=== PATIENT | male | born 1945 | race Caucasian/White ===

== ENCOUNTER → 2019-12-14 13:42 | Outpatient (BNVA) | payer MEDICARE, OTHER, SELFPAY | PROVIDERS: Family Provider Family Medicine; PCP Family Medicine; Visit Provider Internal Medicine | DX: Z11.59 Encounter for screening for other viral diseases (principal) | CPT/HCPCS: 87635 ==

== ENCOUNTER → 2020-02-02 09:52 | Outpatient (BNVA) | payer MEDICARE, OTHER, SELFPAY | PROVIDERS: Family Provider Family Medicine; PCP Family Medicine; Visit Provider Radiology Diagnostic Radiology | DX: Z20.828 Contact with and (suspected) exposure to other viral communicable diseases (principal); Z01.812 Encounter for preprocedural laboratory examination | CPT/HCPCS: 87635 ==

== ENCOUNTER → 2020-05-10 09:24 | Outpatient (BNVA) | payer MEDICARE, OTHER, SELFPAY | PROVIDERS: Family Provider Family Medicine; PCP Family Medicine; Visit Provider Radiology Diagnostic Radiology | DX: Z01.818 Encounter for other preprocedural examination (principal); Z20.822 Contact with and (suspected) exposure to COVID-19 | CPT/HCPCS: 87635 ==

== ENCOUNTER → 2020-11-12 08:55 | Outpatient (BNVA) | payer MEDICARE, OTHER, SELFPAY | PROVIDERS: Family Provider Family Medicine; PCP Family Medicine; Visit Provider Radiology Diagnostic Radiology | DX: Z20.822 Contact with and (suspected) exposure to COVID-19 (principal) | CPT/HCPCS: 87635 ==

== ENCOUNTER → 2021-02-07 09:42 | Outpatient (BNVA) | payer MEDICARE, OTHER, SELFPAY | PROVIDERS: Family Provider Family Medicine; PCP Family Medicine; Visit Provider Radiology Diagnostic Radiology | DX: Z01.812 Encounter for preprocedural laboratory examination (principal); Z20.822 Contact with and (suspected) exposure to COVID-19 | CPT/HCPCS: 87635 ==

== ENCOUNTER → 2021-05-12 11:49 | Outpatient (BNVA) | payer MEDICARE, OTHER, SELFPAY | PROVIDERS: Family Provider Family Medicine; PCP Family Medicine; Visit Provider Radiology Diagnostic Radiology | DX: Z11.52 Encounter for screening for COVID-19 (principal) | CPT/HCPCS: 87635 ==

== ENCOUNTER → 2021-09-05 11:55 | Outpatient (BNVA) | payer MEDICARE, OTHER, SELFPAY | PROVIDERS: Family Provider Family Medicine; PCP Family Medicine; Referring Provider Family Medicine; Visit Provider Specialist | DX: I69.354 Hemiplegia and hemiparesis following cerebral infarction affecting left non-dominant side (principal); R20.8 Other disturbances of skin sensation; I69.398 Other sequelae of cerebral infarction; G89.0 Central pain syndrome; G25.81 Restless legs syndrome | CPT/HCPCS: 99205; 99214 ==

== ENCOUNTER → 2021-09-25 12:51 | Outpatient (BNVA) | payer MEDICARE, OTHER, SELFPAY | PROVIDERS: Family Provider Family Medicine; PCP Family Medicine; Visit Provider Specialist | DX: I69.354 Hemiplegia and hemiparesis following cerebral infarction affecting left non-dominant side (principal); G50.0 Trigeminal neuralgia; G89.0 Central pain syndrome | CPT/HCPCS: 64612; 64616; 64644; J0585 ==

== ENCOUNTER 2021-11-25 00:34 | Emergency (ER) | payer MEDICARE, OTHER, SELFPAY ==
[2021-11-25 00:40] VITALS: BP 150/90; PULSE 98; PULSE 99; RESP 18; TEMP 36.7; O2SAT 94; BMI 26.6
[2021-11-25 00:44] VITALS: O2SAT 94
--- NOTE | 2021-11-25 00:44 | CTR_ITS ---
PROCEDURE INFORMATION: Exam: CT Abdomen And Pelvis Without Contrast Exam date and time: 11/25/2021 1:21 AM Age: 76 years old Clinical indication: Abdominal pain; Generalized; Prior surgery; Surgery type: Nephrostomy, ostomy, appendectomy; Additional info: Abd pain TECHNIQUE: Imaging protocol: Computed tomography of the abdomen and pelvis without contrast. Radiation optimization: All CT scans at this facility use at least one of these dose optimization techniques: automated exposure control; mA and/or kV adjustment per patient size (includes targeted exams where dose is matched to clinical indication); or iterative reconstruction. COMPARISON: CT chest abd pel w con* 10/06/2017 12:33 PM RADIATION DOSE METRICS: Total DLP (mGy-cm): 750.64 FINDINGS: Tubes, catheters and devices: Interval placement of right nephrostomy tube. Left ileo ureterostomy stent with pigtail catheter in the left renal pelvis. Lungs: Mild right basilar atelectasis and/or infiltrate and/or scarring. Liver: Normal. No mass. Gallbladder and bile ducts: Continued multiple gallstones within the gallbladder. Pancreas: Normal. No ductal dilation. Spleen: Normal. No splenomegaly. Adrenal glands: Normal. No mass. Kidneys and ureters: Interval right anterior abdominal wall urostomy/ileal conduit. Stomach and bowel: Dilated loops of small bowel up to 3.7 cm without obvious transition point suggesting enteritis versus ileus versus occult small-bowel obstruction. Appendix: No evidence of appendicitis. Intraperitoneal space: Unremarkable. No free air. No significant fluid collection. Vasculature: Calcification of the abdominal aorta and/or iliac arteries consistent with atherosclerotic vessel disease. Lymph nodes: Unremarkable. No enlarged lymph nodes. Urinary bladder: Absent urinary bladder consistent with cystectomy. Reproductive: Surgical clips in the pelvis with absent prostate most consistent with radical prostatectomy. Bones/joints: Stable fusion of L2-L3 vertebral bodies. Moderate to severe multilevel spine degenerative changes including degenerative disc disease, spondylosis and facet degenerative changes. Soft tissues: Unremarkable. CT/CT abdomen pelvis wo con [id number] IMPRESSION: 1. Continued multiple gallstones within the gallbladder. 2. Interval placement of right nephrostomy tube. 3. Absent urinary bladder consistent with cystectomy. 4. Surgical clips in the pelvis with absent prostate most consistent with radical prostatectomy. 5. Interval right anterior abdominal wall urostomy/ileal conduit. 6. Left ileo ureterostomy stent with pigtail catheter in the left renal pelvis. 7. Dilated loops of small bowel up to 3.7 cm without obvious transition point suggesting enteritis versus ileus versus occult small-bowel obstruction.
[2021-11-25] MEDS: ondansetron 2 mg/ML SDV 2 mL 4 MG IVP (00:55)
[2021-11-25 01:02] LABS: Basophils % 0.3 %; Eosinophils # 0.3 10^3/uL (0.0-0.8); Eosinophils % 2.9 %; Hematocrit 51.4 % (42.0-52.0); Hemoglobin 16.9 g/dL (11.7-16.6); Lymphocytes # 1.3 10^3/uL (0.8-4.8); Lymphocytes % 14.5 %; Mean Corpuscular HGB Conc 32.9 g/dL (30.0-36.0); Mean Corpuscular Hemoglobin 32.7 pg (28.0-34.0); Mean Corpuscular Volume 99.4 fl (80-94); Mean Platelet Volume 9.2 fL (7.4-10.4); Monocytes # 0.7 10^3/uL (0.2-0.9); Monocytes % 7.6 %; Neutrophils # 6.79 10^3/uL (1.8-7.7); Neutrophils % 74.5 %; Nucleated Red Blood Cells % 0 %; Platelet Count 244 10^3/cmm (130-400); Red Blood Count 5.17 10^6/uL (4.1-5.3); Red Cell Distribution Width 13.6 % (12.1-15.1); White Blood Count 9.1 10^3/uL (4.0-10.0)
--- NOTE | 2021-11-25 01:14 | W.ED.NAVMDI ---
HPI - Nausea/Vomiting/Diarrhea General: Chief complaint: Nausea/Vomiting/Diarrhea Stated complaint: ABD PAIN Time Seen by Provider: 11/25/21 00:35 Source: patient and EMS Mode of arrival: EMS Limitations: no limitations History of Present Illness: 76-year-old male with history of multiple surgeries in the past he has a urostomy along with a colostomy he had ureteral stents placed yesterday he states that he had fell today hit his abdomen has been having some diffuse abdominal pain and nausea since then. He states he is also been constipated he is given himself a suppository with no relief he has diffuse pain in his abdomen he rates it a 3 out of 10 he is unsure if it is from him falling he denies hitting his head denies any neck pain. Associated nausea: Yes Associated symtoms: Reports nausea; Denies chest pain, dysuria or headache(s) Review of Systems Const: Denies: fever(s), chills, body aches or change in appetite Eyes: Denies: blurry vision or eye discomfort ENMT: Denies: throat pain or dental pain Card: Denies: chest pain Resp: Denies: dyspnea GI: Reports: abdominal pain, nausea and constipation : Denies: dysuria Musc: Denies: neck pain or back pain Skin/Breast: Denies: rash Neuro: Denies: headache(s) Psych: Denies: depression Fabien/Lymph: Denies: easy bruising All/Imm: Denies: urticaria PFSH ED PFSH: Medical History Hemiplegia as late effect of stroke Social History Smoking and tobacco status: never smoked Physical Exam Const: COMMON NORMALS: no acute distress, patient oriented x3 and healthy appearing HENMT: COMMON NORMALS: normocephalic and atraumatic HEAD & SCALP: normocephalic and atraumatic Eye: COMMON NORMALS: Equal, round and reactive pupils present and EOMs intact bilaterally PUPIL: Yes Equal, round and reactive pupils present Neck/C-Spine: COMMON NORMALS: full ROM and supple Chest: COMMONS NORMALS: normal inspection of the chest and normal palpation of entire chest wall Resp: COMMON NORMALS: normal respiratory effort, No retractions, No use of accessory muscles and clear to auscultation bilaterally AUSCULTATION: clear to auscultation bilaterally Cardio: COMMON NORMALS: regular rate, regular rhythm and No murmurs present (Cardio) RATE: regular rate RHYTHM: regular rhythm GI: COMMON NORMALS: Normal to inspection, nondistended, normoactive bowel sounds present, Soft to palpation, non-tender and no masses PALPATION: Yes Soft to palpation Extremity: COMMON NORMALS: normal to inspection and full ROM Neuro: COMMON NORMALS: patient oriented x3, moves all extremities and no focal motor deficits Psych: COMMON NORMALS: mental status grossly normal, Normal thought process present and cooperative THOUGHT PROCESS: Normal thought process present Skin: COMMON NORMALS: no rashes or lesions noted and no wounds GENERAL SKIN EXAM: no rashes or lesions noted Course Vital Signs: Vital signs: Vital Signs Temperature 98.1 F 11/25/21 00:40 Pulse Rate 78 11/25/21 02:42 Respiratory Rate 17 11/25/21 02:42 Blood Pressure 132/97 11/25/21 02:42 Pulse Oximetry 93 11/25/21 02:42 Oxygen Delivery Me thod 11/25/21 02:42 Oxygen Flow Rate 2 11/25/21 02:42 MDM - Nausea/Vomiting/Diarrhea Medical Decision Making Patient presents here with abdominal pain he had fell earlier today CT does show an ileus he has had no vomiting I did speak to him and at length offered admission for possible obstruction I see no transition point he is wanting to go home he is to do a liquid diet he is to return if he has any vomiting or increased pain he understands and agrees to plan. Lab Data : 11/25/21 00:55 11/25/21 01:40 Radiology Impressions Abdomen/Pelvis CT 11/25/21 00:44 IMPRESSION: 1. Continued multiple gallstones within the gallbladder. 2. Interval placement of right nephrostomy tube. 3. Absent urinary bladder consistent with cystectomy. 4. Surgical clips in the pelvis with absent prostate most consistent with radical prostatectomy. 5. Interval right anterior abdominal wall urostomy/ileal conduit. 6. Left ileo ureterostomy stent with pigtail catheter in the left renal pelvis. 7. Dilated loops of small bowel up to 3.7 cm without obvious transition point suggesting enteritis versus ileus versus occult small-bowel obstruction. Laboratory Results WBC 9.1 10^3/uL (4.0-10.0) 11/25/21 00:55 RBC 5.17 10^6/uL (4.1-5.3) 11/25/21 00:55 Hgb 16.9 g/dL (11.7-16.6) H 11/25/21 00:55 Hct 51.4 % (42.0-52.0) 11/25/21 00:55 MCV 99.4 fl (80-94) H 11/25/21 00:55 MCH 32.7 pg (28.0-34.0) 11/25/21 00:55 MCHC 32.9 g/dL (30.0-36.0) 11/25/21 00:55 RDW 13.6 % (12.1-15.1) 11/25/21 00:55 Plt Count 244 10^3/cmm (130-400) 11/25/21 00:55 MPV 9.2 fL (7.4-10.4) 11/25/21 00:55 Neut % (Auto) 74.5 % 11/25/21 00:55 Lymph % (Auto) 14.5 % 11/25/21 00:55 [place] % (Auto) 7.6 % 11/25/21 00:55 Eos % (Auto) 2.9 % 11/25/21 00:55 Baso % (Auto) 0.3 % 11/25/21 00:55 Neut # (Auto) 6.79 10^3/uL (1.8-7.7) 11/25/21 00:55 Lymph # (Auto) 1.3 10^3/uL (0.8-4.8) 11/25/21 00:55 [place] # (Auto) 0.7 10^3/uL (0.2-0.9) 11/25/21 00:55 Eos # (Auto) 0.3 10^3/uL (0.0-0.8) 11/25/21 00:55 Baso # (Auto) 0.0 10^3/uL (0.0-0.1) 11/25/21 00:55 Nucleated RBC % (auto) 0 % 11/25/21 00:55 Nucleated RBCs # 0.0 /100WBC 11/25/21 00:55 Sodium 141 mmol/L (136-145) 11/25/21 01:40 Potassium 3.9 mmol/L (3.5-5.1) 11/25/21 01:40 Chloride 102 mmol/L (98-107) 11/25/21 01:40 Carbon Dioxide 28 mmol/L (22-29) 11/25/21 01:40 Anion Gap 14.9 (5-19) 11/25/21 01:40 BUN 19 mg/dL (8-23) 11/25/21 01:40 Creatinine 1.3 mg/dL (0.7-1.2) H 11/25/21 01:40 GFR Calculation Not Reportable 11/25/21 01:40 Glucose 112 mg/dL (65-115) 11/25/21 01:40 Calculated Osmolality 295 mOsm/kg (285-295) 11/25/21 01:40 Calcium 9.8 mg/dL (8.5-10.5) 11/25/21 01:40 Total Bilirubin 0.5 mg/dL (0.15-1.2) 11/25/21 01:40 AST 15 U/L (0-40) 11/25/21 01:40 ALT 19 U/L (0-41) 11/25/21 01:40 Alkaline Phosphatase 132 U/L (40-130) H 11/25/21 01:40 Total Protein 7.6 g/dL (6.6-8.7) 11/25/21 01:40 Albumin 4.1 g/dL (3.5-5.2) 11/25/21 01:40 Globulin 3.5 g/dL (1.3-4.6) 11/25/21 01:40 Discharge Plan Discharge Patient Disposition: Home Clinical Impression: Abdominal pain, Ileus Condition: Stable Prescriptions: No Action amlodipine 5 mg tablet 5 mg PO DAILY clopidogrel 75 mg tablet 75 mg PO DAILY fluoxetine 40 mg capsule 40 mg PO DAILY simvastatin 20 mg tablet 20 mg PO DAILY trazodone 150 mg tablet 150 mg PO DAILY albuterol 90 mcg/actuation aerosol inhalation budesonide-formoterol [Symbicort] 160-4.5 mcg/actuation HFA aerosol inhaler 2 puff inhalation BID Spiriva Respimat 1.25 mcg/actuation mist 2 puff inhalation DAILY gabapentin 400 mg capsule 400 mg PO TID Qty: 90 5RF pramipexole 0.125 mg tablet See Rx Instructions .ROUTE .COMPLEX Qty: 90 0RF Dose Instruction: TAKE 1 TABLET BY MOUTH IN THE MORNING, AND 2 TABLETS AT NIGHT Rx Instructions: TAKE 1 TABLET BY MOUTH IN THE MORNING, AND 2 TABLETS AT NIGHT Discharge Orders: Discharge ED (Routine); Ordered 11/25/21 Ordered By: Margie Wang Referrals: Yosvany Estrella [Primary Care Provider] - Discharge Diet: Full LIquid Discharge Activity: Resume usual activity Patient Instructions: Abdominal Pain (ED), Ileus (ED) Coding Level of Care Code ED Automatic Beading Lathe Operator for Chg Fwd Exam Comprehensive
[2021-11-25 02:09] VITALS: BP 136/91; PULSE 97; RESP 16; O2SAT 93
[2021-11-25 02:20] LABS: Alanine Aminotransferase 19 U/L (0-41); Albumin Level 4.1 g/dL (3.5-5.2); Alkaline Phosphatase 132 U/L (40-130); Anion Gap 14.9 (5-19); Aspartate Amino Transferase 15 U/L (0-40); Blood Urea Nitrogen 19 mg/dL (8-23); Calcium 9.8 mg/dL (8.5-10.5); Carbon Dioxide 28 mmol/L (22-29); Chloride 102 mmol/L (98-107); Globulin 3.5 g/dL (1.3-4.6); Glucose 112 mg/dL (65-115); Osmolality Calculated 295 mOsm/kg (285-295); Potassium 3.9 mmol/L (3.5-5.1); Sodium 141 mmol/L (136-145); Total Bilirubin 0.5 mg/dL (0.15-1.2); Total Protein 7.6 g/dL (6.6-8.7)
[2021-11-25 02:42] VITALS: BP 132/97; PULSE 78; RESP 17; O2SAT 93
--- NOTE | 2021-11-25 19:54 | P.HP_ITS ---
Providers/Chief Complaint Primary Care Provider: Yosvany Estrella Chief Complaint: ABD PAIN History of Present Illness Maxwell Grimes is a 76 year old male with past medical history of CVA with residual left-sided weakness, Ca bladder, Right nephrostomy?,colostomy ,lt ureteral stent ,in 2019, with left ureteral stent change done yesterday, follow urology in [place], came in today with chief complaint of generalized abdominal pain nausea and vomiting, patient was in the ER yesterday with similar complaint and was diagnosed with ileus and Was offered to stay in hospital, but at that time they decided to go home as there was no vomiting, But was told to come back in case of worsening symptoms. Upon arrival in the ER pertinent imaging done today includes: CT abdomen pelvis w con: Small bowel obstruction.Question of increasing left basilar infiltrate. Pertinent labs: WBC 13.7, H&H: 17/53, PLT: 289 , sodium 138 potassium 3.9, BUN serum creatinine : 24/1.4 , lipase: 11 Urinalysis: Urine WBC greater than 100, urine bacteria 4+, Review of Systems General: Reports: 10 or more systems reviewed and unremarkable except in HPI and below Const: Denies: fever(s), chills, body aches, change in appetite or diaphoresis Card: Denies: palpitations, edema, swelling of feet/ankles, dyspnea on exertion, orthopnea or leg pain with exertion Resp: Denies: dyspnea, productive cough, wheezing or pain on inspiration GI: Reports: abdominal pain, nausea and vomiting; Denies: diarrhea or constipation Musc: Denies: back pain, extremity pain or extremity swelling Neuro: Denies: headache(s), difficulty walking or confusion Medications/Allergies Home Medications Medication Instructions Recorded Confirmed Last Taken Type albuterol 90 mcg/actuation aerosol 90 mcg inhalation Q6H PRN 09/05/21 11/25/21 Unknown History inhaler Shortness Of Breath amlodipine 5 mg tablet 5 mg PO DAILY 09/05/21 11/25/21 Unknown History budesonide-formoterol HFA 160 2 puff inhalation BID 09/05/21 11/25/21 Unknown History mcg-4.5 mcg/actuation aerosol inhaler (Symbicort) clopidogrel 75 mg tablet 75 mg PO DAILY 09/05/21 11/25/21 Unknown History fluoxetine 40 mg capsule 40 mg PO DAILY 09/05/21 11/25/21 Unknown History gabapentin 400 mg capsule 400 mg PO TID #90 caps 09/05/21 11/25/21 Unknown Rx simvastatin 20 mg tablet 20 mg PO DAILY 09/05/21 11/25/21 Unknown History tiotropium bromide 1.25 2 puff inhalation DAILY 09/05/21 11/25/21 Unknown History mcg/actuation mist for inhalation (Spiriva Respimat) trazodone 150 mg tablet 150 mg PO DAILY 09/05/21 11/25/21 Unknown History pramipexole 0.125 mg tablet See Rx Instructions .Route 11/05/21 11/25/21 Unknown Rx .COMPLEX #90 tabs Allergies Allergy/AdvReac Type Severity Reaction Status Date / Time Sulfa (Sulfonamide Allergy Intermediate ALGY-Rash Verified 11/25/21 00:44 Antibiotics) PFSH Acute PFSH: Medical History (Updated 11/26/21 @ 17:48 by Martin Jordan DO) 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 Surgical History (Updated 11/25/21 @ 17:50 by Marilee Ellison MD) History of urostomy Social History Smoking and tobacco status: never smoked Vitals/I&O/Wt Last Vital Signs Temp 98.1 F 11/25/21 00:40 Pulse 78 11/25/21 02:42 Resp 17 11/25/21 02:42 BP 132/97 11/25/21 02:42 Pulse Ox 93 11/25/21 02:42 O2 Del Method 11/25/21 02:42 O2 Flow Rate 2 11/25/21 02:42 Weight last 48 hrs Weight 74.843 kg Physical Exam Const: COMMON NORMALS: patient oriented x3 Resp: COMMON NORMALS: normal respiratory effort, No retractions, No use of accessory muscles and clear to auscultation bilaterally EFFORT & INSPECTION: Yes symmetric chest movement AUSCULTATION: clear to auscultation bilaterally Cardio: COMMON NORMALS: regular rate, regular rhythm, S1 normal heart sound present, S2 normal heart sound present, No gallops present (Cardio), No murmurs present (Cardio), No rub (Cardio) and Peripheral pulses 2+ throughout RATE: regular rate RHYTHM: regular rhythm HEART SOUNDS: S1 normal heart sound present and S2 normal heart sound present PERIPHERAL PULSES: Peripheral pulses 2+ throughout GI: COMMON NORMALS: Soft to palpation, non-tender, No hepatosplenomegaly present and no masses PALPATION: Yes Soft to palpation and Yes No hepatosplenomegaly present RECTAL EXAM: Yes deferred OTHER: Hypoactive bowel sounds Extremity: COMMON NORMALS: no clubbing, cyanosis or edema and no pedal edema Neuro: COMMON NORMALS: patient oriented x3 Data : 11/25/21 00:55 11/25/21 01:40 A&P Assessment and plan (1) Small bowel obstruction: (2) Hemiplegia as late effect of stroke: Plan 76 year old male with past medical history of CVA with residual left-sided weakness, Ca bladder, Right nephrostomy?,colostomy ,lt ureteral stent ,in 2019, with left ureteral stent change done yesterday, follow urology in [place], came in today with chief complaint of generalized abdominal pain nausea and vomiting. Assessment: Small bowel obstruction History of CVA with residual left-sided weakness uses walker at home CKD versus HOANG on CKD History of Ca bladder Right nephrostomy? Colostomy lt ureteral stent Plan: N.p.o. NG tube in place, on low intermittent suction Surgery on board Monitor KUB Will empirically cover him with antibiotics for possible aspiration Continue IV hydration Monitor intake output charting Avoid nephrotoxic's Monitor BMP DVT prophylaxis: On Lovenox CODE STATUS: AND Attestations Medical Necessity Statement*: Patient is in hospital for management of small bowel obstruction. Anticipated length of stay greater than 2 midnights. Time Spent in Patient Care: Greater than 35 minutes (>than 50% of time spent in counselling and/or direct pt care on unit) . Coding Level of Care Code Acute Card Services Specialist for [facility] Fwd Exam Detailed Diagnoses Small bowel obstruction K56.609 Hemiplegia as late effect of stroke I69.359
== END 2021-11-25 03:14 | disposition home or self-care (01) ==
PROVIDERS: Emergency Provider Emergency Medicine; PCP Family Medicine
DX: R10.9 Unspecified abdominal pain (principal); K56.7 Ileus, unspecified; Z79.02 Long term (current) use of antithrombotics/antiplatelets
CPT/HCPCS: 74176; 80053; 85025; 99284; J2405

== ENCOUNTER 2021-11-25 17:25 | Inpatient (IN) | payer MEDICARE, OTHER, SELFPAY ==
[2021-11-25] VITALS (7 sets, daily range): BP systolic 136–158; BP diastolic 83–99; PULSE 87–107; RESP 16–20; TEMP 36.3–36.8; O2SAT 92–95; BMI 25.8
--- NOTE | 2021-11-25 17:37 | W.ED.GENADLT ---
HPI - General Adult General: Chief complaint: Abdominal Pain Stated complaint: VOMITING BLOOD Time Seen by Provider: 11/25/21 17:30 History of Present Illness: Patient is a 76-year-old male with a history of urostomy, colostomy presenting to the emergency room for concerns of abdominal pain nausea vomiting and vomiting of blood. Patient tells me that she was seen yesterday in the emergency room for complaints abdominal pain. At that point time, patient was diagnosed with enteritis versus ileus and recommended admission. Patient said to go home at that time. Since discharge from hospital yesterday, patient has had multiple episodes of bloody vomitus today. Patient any history of cirrhosis or anticoagulation. Of note, 2 days ago, patient has had a urostent placed. Patient denies any increased ostomy output. Patient denies any melena/hematochezia or bloody or serosanguineous ostomy output. Patient denies any urinary complaints. Patient denies any cough, runny nose, sore throat, chest pain, shortness of palpitation or lightheadedness Onset: yesterday Duration:ongoing Location:home Severity:moderate Associated symptoms: Reports nausea and vomiting; Deny chest pain, dyspnea, rash or palpitations Review of Systems Const: Denies: fever(s) or chills Eyes: Denies: change in vision ENMT: Denies: mouth pain Card: Denies: chest pain or palpitations Resp: Denies: dyspnea or non-productive cough GI: Reports: abdominal pain, nausea and vomiting; Denies: diarrhea : Denies: dysuria Musc: Denies: extremity pain Skin/Breast: Denies: rash or new lesions Neuro: Denies: weakness in extremities Psych: Reports: other (Normal mood) Fabien/Lymph: Denies: easy bruising PFS ED PFSH: Medical History (Updated 11/25/21 @ 19:34 by Marilee Ellison MD) 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 Surgical History (Updated 11/25/21 @ 17:50 by Marilee Ellison MD) History of urostomy Social History Smoking and tobacco status: never smoked Physical Exam Const: COMMON NORMALS: alert HENMT: COMMON NORMALS: atraumatic HEAD & SCALP: atraumatic MOUTH: moist mucous membranes not abnormal Eye: COMMON NORMALS: EOMs intact bilaterally and conjunctivae normal CONJUNCTIVA: Yes conjunctivae normal Neck/C-Spine: COMMON NORMALS: full ROM and supple Resp: COMMON NORMALS: normal respiratory effort and clear to auscultation bilaterally AUSCULTATION: clear to auscultation bilaterally Cardio: COMMON NORMALS: regular rate RATE: regular rate GI: COMMON NORMALS: Soft to palpation PALPATION: Yes Soft to palpation OTHER: +abdominal distension, mild diffuse TTP. NO guarding rebound, guarding, rigidity. No CVA tenderness to percussion. Neg Mares/Neg McBurney's point tenderness, no suprabupic tenderness to palpation. +ostomy site appears dry/clean/intact Extremity: COMMON NORMALS: full ROM Neuro: SENSORIUM/ORIENTATION: Yes alert MOTOR EXAM: No Abnormal motor strength present and Other motor observations present (no focal motor deficits) Psych: COMMON NORMALS: speech normal SPEECH: Yes normal speech MOOD & AFFECT: Yes euthymic mood Course Vital Signs: Vital signs: Vital Signs Temperature 98.2 F 11/25/21 17:28 Pulse Rate 99 11/25/21 18:38 Respiratory Rate 18 11/25/21 17:28 Blood Pressure 146/99 11/25/21 17:32 Pulse Oximetry 93 11/25/21 18:38 Oxygen Delivery Me thod 11/25/21 18:38 Oxygen Flow Rate 1 11/25/21 18:38 MDM - General Adult Medical Decision Making 76M who was seen yesterday presenting to the ED with abd distension, diffuse pain and N/V. HDS. + abdominal distension, +mild abd tenderness to palpation. Case discussed with Dr. Jordan who agrees with close observation. Patient is NPO currently. NG tube placed. S/p IVF. Patient received 1 mg of Versed for agitation and 1 g ceftriaxone for UTI in the setting of urostomy. Patient has over 1 L of NG tube output. Disposition: admission Lab Data : 11/25/21 16:33 11/25/21 16:33 Radiology Impressions Abdomen/Pelvis CT 11/25/21 17:45 IMPRESSION: 1. Small bowel obstruction. 2. Question of increasing left basilar infiltrate. ADDENDUM: 11/25/21 0169 Get addendumTHIS REPORT CONTAINS FINDINGS THAT MAY BE CRITICAL TO PATIENT CARE. The findings were verbally communicated via telephone conference with MARILEE ELLISON at 6:42 PM CDT on 11/25/2021. The findings were acknowledged and understood. Laboratory Results WBC 13.7 10^3/uL (4.0-10.0) H 11/25/21 16:33 RBC 5.40 10^6/uL (4.1-5.3) H 11/25/21 16:33 Hgb 17.8 g/dL (11.7-16.6) H 11/25/21 16:33 Hct 53.3 % (42.0-52.0) H 11/25/21 16:33 MCV 98.7 fl (80-94) H 11/25/21 16: MCH 33.0 pg (28.0-34.0) 11/25/21 16: MCHC 33.4 g/dL (30.0-36.0) 11/25/21 16: RDW 13.8 % (12.1-15.1) 11/25/21 16:33 Plt Count 289 10^3/cmm (130-400) 11/25/21 16: MPV 9.9 fL (7.4-10.4) 11/25/21 16: Neut % (Auto) 75.8 % 11/25/21 16:33 Lymph % (Auto) 15.7 % 11/25/21 16:33 [place] % (Auto) 7.2 % 11/25/21 16: Eos % (Auto) 0.6 % 11/25/21 16: Baso % (Auto) 0.3 % 11/25/21 16: Neut # (Auto) 10.41 10^3/uL (1.8-7.7) H 11/25/21 16:33 Lymph # (Auto) 2.2 10^3/uL (0.8-4.8) 11/25/21 16:33 [place] # (Auto) 1.0 10^3/uL (0.2-0.9) H 11/25/21 16:33 Eos # (Auto) 0.1 10^3/uL (0.0-0.8) 11/25/21 16:33 Baso # (Auto) 0.0 10^3/uL (0.0-0.1) 11/25/21 16:33 Nucleated RBC % (auto) 0 % 11/25/21 16:33 Nucleated RBCs # 0.0 /100WBC 11/25/21 16:33 PT 14.40 SECONDS (12.1-14.9) 11/25/21 18:50 INR 1.09 (0.8-1.2) 11/25/21 18:50 APTT 33.2 SECONDS (23.9-36.7) 11/25/21 18:50 Sodium 138 mmol/L (136-145) 11/25/21 16:33 Potassium 3.9 mmol/L (3.5-5.1) 11/25/21 16:33 Chloride 97 mmol/L (98-107) L 11/25/21 16:33 Carbon Dioxide 25 mmol/L (22-29) 11/25/21 16:33 Anion Gap 19.9 (5-19) H 11/25/21 16:33 BUN 24 mg/dL (8-23) H 11/25/21 16:33 Creatinine 1.4 mg/dL (0.7-1.2) H 11/25/21 16:33 GFR Calculation Not Reportable 11/25/21 16:33 Glucose 115 mg/dL (65-115) 11/25/21 16:33 Calculated Osmolality 291 mOsm/kg (285-295) 11/25/21 16:33 Lactate 0.7 mmol/L (0.5-2.2) 11/25/21 18:50 Calcium 10.6 mg/dL (8.5-10.5) H 11/25/21 16:33 Total Bilirubin 0.8 mg/dL (0.15-1.2) 11/25/21 16:33 AST 18 U/L (0-40) 11/25/21 16:33 ALT 18 U/L (0-41) 11/25/21 16:33 Alkaline Phosphatase 151 U/L (40-130) H 11/25/21 16:33 Total Protein 8.4 g/dL (6.6-8.7) 11/25/21 16:33 Albumin 4.4 g/dL (3.5-5.2) 11/25/21 16:33 Globulin 4.0 g/dL (1.3-4.6) 11/25/21 16:33 Lipase 11 U/L (13-60) L 11/25/21 16:33 Urine Color Dark yellow (Yellow) 11/25/21 17:52 Urine Appearance Turbid (CLEAR) A 11/25/21 17:52 Urine pH 6.5 (5-7) 11/25/21 17:52 Ur Specific [place] 1.025 (1.005-1.030) 11/25/21 17:52 Urine Protein 3+ 11/25/21 17:52 Urine Glucose (UA) Negative (Normal) 11/25/21 17:52 Urine Ketones Trace (Negative) A 11/25/21 17:52 Urine Blood Large (Negative) A 11/25/21 17:52 Urine Nitrate Negative 11/25/21 17:52 Urine Bilirubin 1+ (Negative) 11/25/21 17:52 Urine Urobilinogen 0.2 mg/dL (Negative) 11/25/21 17:52 Ur Leukocyte Esterase 3+ 11/25/21 17:52 Urine RBC >100 /hpf (0-2) H 11/25/21 17:52 Urine WBC >100 /hpf (0-5) H 11/25/21 17:52 Ur Squamous Epith Cells 0-4 /hpf (0-5) H 11/25/21 17:52 Amorphous Sediment Not Reportable 11/25/21 17:52 Urine Bacteria 4+ /hpf (NONE) H 11/25/21 17:52 Imaging Data Other Imaging: Radiologist's impression: [address] [address] [address] Scan Report Signed with Addenda Patient: Maxwell Grimes Unit #: [id number] : 1945 Age/Sex: 76 / M ADM Date: 11/25/21 Loc: ER Room/Bed: Attending Dr: Ordering Provider/Ordering MD: Marilee Ellison MD Date of Service: 11/25/21 Procedure(s): CT abdomen pelvis w con* [id number] Accession Number(s): [id number] Report Number: [id number]/CT abdomen pelvis w con* [id number] Get addendumTHIS REPORT CONTAINS FINDINGS THAT MAY BE CRITICAL TO PATIENT CARE. The findings were verbally communicated via telephone conference with MARILEE ELLISON at 6:42 PM CDT on 11/25/2021. The findings were acknowledged and understood. ? Addendum Dictated By: ?Leonides Maria Addendum Signed By: ?Leonides Maria Signed Date/Time: 11/25/21 1844 Addendum Cosigned By: ? PROCEDURE INFORMATION: Exam: CT Abdomen And Pelvis With Contrast Exam date and time: 11/25/2021 6:26 PM Age: 76 years old Clinical indication: Abdominal pain; Other: Vomiting blood; Prior surgery; Surgery date: 6+ months; Surgery type: Appx, urostomy, colostomy; Additional info: Abd pain TECHNIQUE: Imaging protocol: Computed tomography of the abdomen and pelvis with contrast. Radiation optimization: All CT scans at this facility use at least one of these dose optimization techniques: automated exposure control; mA and/or kV adjustment per patient size (includes targeted exams where dose is matched to clinical indication); or iterative reconstruction. Contrast material: OMNIPAQUE 350; Contrast volume: 80 ml; Contrast route: INTRAVENOUS (IV);? COMPARISON: CT abdomen pelvis wo con [id number] 11/25/2021 1:21 AM RADIATION DOSE METRICS: Total DLP (mGy-cm): 856.09 FINDINGS: Lungs: There is some focal atelectasis or scarring at the right lung base not significantly changed. There are mildly increased interstitial markings at the left lung base which could represent some mild pneumonitis. Please correlate with the clinical findings. Liver: There is no focal abnormality within the liver. Gallbladder and bile ducts: Multiple calcified gallstones are present. Pancreas: The pancreas is normal. Spleen: The spleen is normal. Adrenal glands: The adrenal glands are normal. Kidneys and ureters: Right nephrostomy remains in place. There is small benign simple cyst mid left kidney measuring approximately 12 mm not significantly changed. There is left ureteral stent in place. There is no evidence of hydronephrosis. Stomach and bowel: The stomach is mildly dilated and filled with fluid. There also dilated proximal small bowel loops filled with fluid, increased from the previous study. Distal small bowel loops are nondilated. The point of transition appears to be in the right lower quadrant. There is no evidence of colitis/diverticulitis. Appendix: There has been an appendectomy. Intraperitoneal space: There is no evidence of free intraperitoneal fluid. There is no evidence of free intraperitoneal fluid. Vasculature: The aorta demonstrates moderate atherosclerotic calcification. There is no evidence of an abdominal aortic aneurysm. Lymph nodes: There is no evidence of lymphadenopathy. Urinary bladder: There has been cystectomy. There is a urinary diversion in the right lower quadrant. Reproductive: Unremarkable as visualized. Bones/joints: The lumbar spine demonstrates severe degenerative changes at multiple levels. Soft tissues: Unremarkable. CT/CT abdomen pelvis w con* [id number] IMPRESSION: 1. Small bowel obstruction. 2. Question of increasing left basilar infiltrate. ? Dictated By: Leonides Maria Signed By: Leonides Maria Signed Date/Time: 11/25/21 184 DD/ 25 Discharge Plan Discharge Patient Disposition: Admitted As Inpatient Clinical Impression: Nausea & vomiting, Abdominal distension, Small bowel obstruction, UTI (urinary tract infection) Condition: Stable Coding Level of Care Code ED School Lunch Manager for Chg Fwd Exam Comprehensive
--- NOTE | 2021-11-25 17:45 | CTR_ITS ---
PROCEDURE INFORMATION: Exam: CT Abdomen And Pelvis With Contrast Exam date and time: 11/25/2021 6:26 PM Age: 76 years old Clinical indication: Abdominal pain; Other: Vomiting blood; Prior surgery; Surgery date: 6+ months; Surgery type: Appx, urostomy, colostomy; Additional info: Abd pain TECHNIQUE: Imaging protocol: Computed tomography of the abdomen and pelvis with contrast. Radiation optimization: All CT scans at this facility use at least one of these dose optimization techniques: automated exposure control; mA and/or kV adjustment per patient size (includes targeted exams where dose is matched to clinical indication); or iterative reconstruction. Contrast material: OMNIPAQUE 350; Contrast volume: 80 ml; Contrast route: INTRAVENOUS (IV); COMPARISON: CT abdomen pelvis wo con [id number] 11/25/2021 1:21 AM RADIATION DOSE METRICS: Total DLP (mGy-cm): 856.09 FINDINGS: Lungs: There is some focal atelectasis or scarring at the right lung base not significantly changed. There are mildly increased interstitial markings at the left lung base which could represent some mild pneumonitis. Please correlate with the clinical findings. Liver: There is no focal abnormality within the liver. Gallbladder and bile ducts: Multiple calcified gallstones are present. Pancreas: The pancreas is normal. Spleen: The spleen is normal. Adrenal glands: The adrenal glands are normal. Kidneys and ureters: Right nephrostomy remains in place. There is small benign simple cyst mid left kidney measuring approximately 12 mm not significantly changed. There is left ureteral stent in place. There is no evidence of hydronephrosis. Stomach and bowel: The stomach is mildly dilated and filled with fluid. There also dilated proximal small bowel loops filled with fluid, increased from the previous study. Distal small bowel loops are nondilated. The point of transition appears to be in the right lower quadrant. There is no evidence of colitis/diverticulitis. Appendix: There has been an appendectomy. Intraperitoneal space: There is no evidence of free intraperitoneal fluid. There is no evidence of free intraperitoneal fluid. Vasculature: The aorta demonstrates moderate atherosclerotic calcification. There is no evidence of an abdominal aortic aneurysm. Lymph nodes: There is no evidence of lymphadenopathy. Urinary bladder: There has been cystectomy. There is a urinary diversion in the right lower quadrant. Reproductive: Unremarkable as visualized. Bones/joints: The lumbar spine demonstrates severe degenerative changes at multiple levels. Soft tissues: Unremarkable. CT/CT abdomen pelvis w con* [id number] IMPRESSION: 1. Small bowel obstruction. 2. Question of increasing left basilar infiltrate.
[2021-11-25] MEDS: iohexol 350 mg/mL 100 mL Btl IV (17:50)
[2021-11-25 18:04] LABS: Basophils % 0.3 %; Eosinophils # 0.1 10^3/uL (0.0-0.8); Eosinophils % 0.6 %; Hematocrit 53.3 % (42.0-52.0); Hemoglobin 17.8 g/dL (11.7-16.6); Lymphocytes # 2.2 10^3/uL (0.8-4.8); Lymphocytes % 15.7 %; Mean Corpuscular HGB Conc 33.4 g/dL (30.0-36.0); Mean Corpuscular Volume 98.7 fl (80-94); Mean Platelet Volume 9.9 fL (7.4-10.4); Monocytes % 7.2 %; Neutrophils # 10.41 10^3/uL (1.8-7.7); Neutrophils % 75.8 %; Nucleated Red Blood Cells % 0 %; Platelet Count 289 10^3/cmm (130-400); Red Cell Distribution Width 13.8 % (12.1-15.1); White Blood Count 13.7 10^3/uL (4.0-10.0)
[2021-11-25] MEDS: sodium chloride 0.9% 500 ML IV (18:28)
[2021-11-25] MEDS: ondansetron 2 mg/ML SDV 2 mL 4 MG IVP (18:30)
[2021-11-25 18:33] LABS: Alanine Aminotransferase 18 U/L (0-41); Albumin Level 4.4 g/dL (3.5-5.2); Alkaline Phosphatase 151 U/L (40-130); Anion Gap 19.9 (5-19); Aspartate Amino Transferase 18 U/L (0-40); Blood Urea Nitrogen 24 mg/dL (8-23); Calcium 10.6 mg/dL (8.5-10.5); Carbon Dioxide 25 mmol/L (22-29); Chloride 97 mmol/L (98-107); Glucose 115 mg/dL (65-115); Lipase 11 U/L (13-60); Osmolality Calculated 291 mOsm/kg (285-295); Potassium 3.9 mmol/L (3.5-5.1); Sodium 138 mmol/L (136-145); Total Bilirubin 0.8 mg/dL (0.15-1.2); Total Protein 8.4 g/dL (6.6-8.7)
[2021-11-25] MEDS: pantoprazole 40 mg SDV 80 MG IVP (18:33)
--- NOTE | 2021-11-25 18:43 | XRR_ITS ---
PROCEDURE INFORMATION: Exam: XR Abdomen Exam date and time: 11/25/2021 7:30 PM Age: 76 years old Clinical indication: Device placement; Gi device; Nasogastric tube; Additional info: Post ng tube TECHNIQUE: Imaging protocol: Radiologic exam of the abdomen. Views: Frontal supine view of the abdomen. 1 View. COMPARISON: CT abdomen pelvis w con* [id number] 11/25/2021 6:06 PM FINDINGS: Tip of the nasogastric tube is in the stomach. XR/XR KUB portable [id number] IMPRESSION: Nasogastric tube tip is in the stomach.
[2021-11-25 19:21] LABS: INR 1.09 (0.8-1.2)
[2021-11-25 19:22] LABS: Partial Thromboplastin Time 33.2 SECONDS (23.9-36.7)
[2021-11-25 19:23] LABS: Blood Urine Large (Negative); Glucose Urine UA Negative (Normal); Ketones Urine Trace (Negative); Leukocyte Esterase Urine 3+; Nitrate Urine Negative; Protein Urine 3+; Specific Gravity, Urine 1.025 (1.005-1.030); Urine Appearance Turbid (CLEAR); Urobilinogen Urine 0.2 mg/dL (Negative); pH Urine 6.5 (5-7)
[2021-11-25 19:24] LABS: Bilirubin Urine 1+ (Negative); Urine Color Dark Yellow (Yellow)
[2021-11-25 19:25] LABS: Add Urine Microscopic? YES
[2021-11-25 19:30] LABS: Lactate (Lactic Acid level) 0.7 mmol/L (0.5-2.2)
[2021-11-25 19:30] LABS: Add Urine Culture? Yes; Bacteria Urine 4+ /hpf; RBC Urine >100 /hpf (0-2); Squamous Epithelial Cell Urine 0-4 /hpf (0-5); WBC Urine >100 /hpf (0-5)
[2021-11-25] MEDS: cefTRIAXone 1,000 MG in sodium chloride 0.9% (plus) 50 ML 100 MG IV (19:44)
[2021-11-25] MEDS: midazolam 1 mg/mL INJ 2 mL IVP (19:44)
[2021-11-25] MEDS: sodium chloride 0.9% 1,000 ML 125 ML IV (22:21)
[2021-11-26] VITALS (7 sets, daily range): BP systolic 141–184; BP diastolic 77–84; PULSE 82–105; RESP 18–24; TEMP 36.7–36.9; O2SAT 90–93
[2021-11-26 05:10] LABS: Alanine Aminotransferase 15 U/L (0-41); Albumin Level 3.2 g/dL (3.5-5.2); Alkaline Phosphatase 117 U/L (40-130); Blood Urea Nitrogen 21 mg/dL (8-23); Calcium 8.9 mg/dL (8.5-10.5); Carbon Dioxide 23 mmol/L (22-29); Chloride 107 mmol/L (98-107); Globulin 3.8 g/dL (1.3-4.6); Glucose 91 mg/dL (65-115); Osmolality Calculated 297 mOsm/kg (285-295); Sodium 142 mmol/L (136-145); Total Bilirubin 0.5 mg/dL (0.15-1.2)
[2021-11-26 05:11] LABS: Anion Gap 16.4 (5-19); Potassium 4.4 mmol/L (3.5-5.1)
[2021-11-26 05:12] LABS: Aspartate Amino Transferase 15 U/L (0-40)
[2021-11-26] MEDS: hyDRALAzine 20 mg/mL INJ 1 mL 5 MG IVP (05:38)
[2021-11-26] MEDS: piperacillin-tazobactam 3.375 GM in sodium chloride 0.9% (plus) 50 ML IV ×3 (05:44→20:34)
[2021-11-26] MEDS: sodium chloride 0.9% 1,000 ML 125 ML IV ×2 (05:47→15:50)
[2021-11-26 06:23] LABS: Basophils % 0.3 %; Eosinophils # 0.1 10^3/uL (0.0-0.8); Eosinophils % 1.1 %; Hematocrit 48.3 % (42.0-52.0); Hemoglobin 16.1 g/dL (11.7-16.6); Lymphocytes # 1.7 10^3/uL (0.8-4.8); Lymphocytes % 16.1 %; Mean Corpuscular HGB Conc 33.3 g/dL (30.0-36.0); Mean Corpuscular Hemoglobin 33.4 pg (28.0-34.0); Mean Corpuscular Volume 100.2 fl (80-94); Mean Platelet Volume 9.5 fL (7.4-10.4); Monocytes # 0.9 10^3/uL (0.2-0.9); Monocytes % 8.7 %; Neutrophils # 7.91 10^3/uL (1.8-7.7); Neutrophils % 73.4 %; Nucleated Red Blood Cells % 0 %; Platelet Count 239 10^3/cmm (130-400); Red Blood Count 4.82 10^6/uL (4.1-5.3); Red Cell Distribution Width 13.6 % (12.1-15.1); White Blood Count 10.8 10^3/uL (4.0-10.0)
[2021-11-26] MEDS: phenol oral Spray 177 mL 5 SPRAY MUCOUS MEM ×2 (07:35→11:08)
--- NOTE | 2021-11-26 11:45 | P.PN_ITS ---
Subjective Subjective: He is bothered by some soreness, pain in his throat despite having some phenyl spray earlier. He had vomited at home, and so in addition to NG tube likely having some irritation following exposure to gastric acid. Reports he may have passed a tiny amount of gas. He and his states last stool in colostomy was probably sometime on Wednesday. Vitals/I&O/Wt Last Vital Signs Temp 98.1 F 11/26/21 11:09 Pulse 105 H 11/26/21 11:09 Resp 18 11/26/21 11:09 BP 150/79 11/26/21 11:09 Pulse Ox 90 11/26/21 11:09 O2 Del Method 11/26/21 11:09 O2 Flow Rate 1.5 11/26/21 08:00 11/25/21 11/26/21 11/26/21 22:59 06:59 14:59 Intake Total 790 / 790 929.167 / 1719.167 50 / 50 Output Total 350 / 350 Balance 790 / 790 579.167 / 1369.167 50 / 50 Weight last 48 hrs Weight 72.575 kg Physical Exam Narrative: at bedside. Const: COMMON NORMALS: patient oriented x3 and alert GENERAL APPEARANCE: cooperative ORIENTATION/CONSCIOUSNESS: Yes awake HENMT: COMMON NORMALS: oropharynx normal OTHER: NGT Neck/C-Spine: COMMON NORMALS: no JVD Resp: COMMON NORMALS: normal respiratory effort and clear to auscultation bilaterally AUSCULTATION: clear to auscultation bilaterally Cardio: COMMON NORMALS: no JVD, regular rhythm, S1 normal heart sound present, S2 normal heart sound present and No murmurs present (Cardio) RHYTHM: regular rhythm HEART SOUNDS: S1 normal heart sound present and S2 normal heart sound present GI: COMMON NORMALS: Normal to inspection, nondistended, normoactive bowel sounds present, Soft to palpation and non-tender PALPATION: Yes Soft to palpation OTHER: Colostomy bag empty : OTHER: Right nephrostomy Extremity: COMMON NORMALS: no joint enlargement and no pedal edema Neuro: COMMON NORMALS: patient oriented x3 and moves all extremities SENSORIUM/ORIENTATION: Yes alert Skin: COMMON NORMALS: no rashes or lesions noted GENERAL SKIN EXAM: no rashes or lesions noted Data : 11/26/21 06:13 11/26/21 04:34 A&P Assessment and plan (1) Small bowel obstruction: Bowel rest, NGT, surgery assessment. States perhaps passed tiny amount of gas. Last stool in colostomy sometime on Wednesday. Reported possibly visible transition point on CT. Is having some throat irritation, likely following vomiting and NGT, did not respond much to phenyl spray. Add Cepacol as needed. Will give a dose of IV Tylenol. (2) Hemiplegia as late effect of stroke: Uses walker at home. Previously on Plavix, currently this has been on hold as has not been able to tolerate oral medication. Resume depending on need for surgical intervention with history of CVA once able to tolerate oral medications. Plan Possible left basilar infiltrate: Cannot exclude some aspiration after vomiting. Possibly some pneumonitis. He was started on Zosyn. Continue for now. CKD History of Ca bladder Right nephrostomy? Colostomy lt ureteral stent changed day before admission. Following with urology in [place]. Attestations Medical Necessity Statement*: Continue admission for assessment of management of small bowel obstruction in a gentleman with history of colostomy, prior abdominal surgeries. Coding Level of Care Code Acute Quality Improvement Coordinator (Rn) for [facility] Fwd Diagnoses Small bowel obstruction K56.609 Hemiplegia as late effect of stroke I69.359
[2021-11-26] MEDS: acetaminophen 1,000 MG/100 ML PIGGYBACK 400 MG IV (12:59)
[2021-11-26] MEDS: LORazepam 2 mg/mL oral liquid (mL) 0.25 MG PO ×2 (15:31→22:37)
--- NOTE | 2021-11-26 17:48 | P.CONIM_ITS ---
Providers/Reason For Consult Consulting Physician/Specialty*: Dr. Martin Jordan, DO/General surgery Reason for Consult*: PSBO Attending Physician: Yusef Morris Primary Care Provider: Yosvany Estrella History of Present Illness History of Present Illness Maxwell Grimes is a 76 year old male , With a history of bladder cancer resulting in a left urostomy and a right nephrostomy tube. 2 days ago he had exchange of his ureteral stents. This morning he began having significant abdominal pain and was not passing any flatus. He reports nausea and vomiting which has resolved. His pain is diffuse and constant. It is sharp when palpated and does not radiate. Nothing seems to make the pain better. A CT abdomen showed small bowel obstruction with transition point in the right lower quadrant, very near his new ureteral stent. Review of Systems General: Reports: 10 or more systems reviewed and unremarkable except in HPI and below Medications/Allergies Home Medications Medication Instructions Recorded Confirmed Last Taken Type albuterol 90 mcg/actuation aerosol 90 mcg inhalation Q6H PRN 09/05/21 11/25/21 Unknown History inhaler Shortness Of Breath amlodipine 5 mg tablet 5 mg PO DAILY 09/05/21 11/25/21 Unknown History budesonide-formoterol HFA 160 2 puff inhalation BID 09/05/21 11/25/21 Unknown History mcg-4.5 mcg/actuation aerosol inhaler (Symbicort) clopidogrel 75 mg tablet 75 mg PO DAILY 09/05/21 11/25/21 Unknown History fluoxetine 40 mg capsule 40 mg PO DAILY 09/05/21 11/25/21 Unknown History gabapentin 400 mg capsule 400 mg PO TID #90 caps 09/05/21 11/25/21 Unknown Rx simvastatin 20 mg tablet 20 mg PO DAILY 09/05/21 11/25/21 Unknown History tiotropium bromide 1.25 2 puff inhalation DAILY 09/05/21 11/25/21 Unknown History mcg/actuation mist for inhalation (Spiriva Respimat) trazodone 150 mg tablet 150 mg PO DAILY 09/05/21 11/25/21 Unknown History pramipexole 0.125 mg tablet See Rx Instructions .Route 11/05/21 11/25/21 Unknown Rx .COMPLEX #90 tabs Allergies Allergy/AdvReac Type Severity Reaction Status Date / Time Sulfa (Sulfonamide Allergy Intermediate ALGY-Rash Verified 11/25/21 00:44 Antibiotics) Current Medications Generic Name Dose Route Start Last Admin Trade Name Freq PRN Reason Stop Dose Admin Sodium Chloride 1,000 mls @ 125 mls/hr 11/25/21 21:16 11/26/21 15:50 Sodium Chloride 0.9% IV 125 mls/hr .Q8H EVETTE Administration Piperacillin Sod/Tazobactam 50 mls @ 12.5 mls/hr 11/26/21 05:15 11/26/21 17:41 Sod 3.375 gm/ Sodium Chloride IV Infused Q8H EVETTE Infusion Protocol Lorazepam 0.25 mg 11/26/21 14:15 11/26/21 15:31 Lorazepam 2 Mg/Ml Oral Liquid (Ml) PO 0.25 mg TID PRN Administration ANXIETY Phenol 5 spray 11/26/21 06:26 11/26/21 11:08 Phenol Oral [place] 177 Ml MUCOUS MEM 5 ml Q2H PRN Administration SORE THROAT Fluticasone/Salmeterol 1 puff 11/26/21 08:00 11/26/21 08:05 Fluticasone-Salmeterol 250-50 Diskus INHALATION 1 puff BID.RESPIRATORY EVETTE Administration PFSH Acute PFSH: Medical History 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 Surgical History History of urostomy Social History Smoking and tobacco status: never smoked Vitals/I&O/Wt Last Vital Signs Temp 98.2 F 11/26/21 16:00 Pulse 99 11/26/21 16:00 Resp 18 11/26/21 16:00 BP 141/77 11/26/21 16:00 Pulse Ox 90 11/26/21 16:00 O2 Del Method 11/26/21 16:00 O2 Flow Rate 1.5 11/26/21 08:00 11/26/21 11/26/21 11/26/21 06:59 14:59 22:59 Intake Total 929.167 / 1719.167 150 / 150 1050 / 1200 Output Total 350 / 350 Balance 579.167 / 1369.167 150 / 150 1050 / 1200 Weight last 48 hrs Weight 160 lb Physical Exam Narrative: General : Patient is well developed , no acute distress, oriented x3 Head : Normal cephalic, a-traumatic. Ears : Pinnae and external canal are normal. Hearing is normal. Eyes : PERRLA, Sclera and injection are normal. No conjunctival discharge. Nose : Mucous membranes are without erythema. Throat : buccal mucosa is normal, gums are without significant recession or hypertrophy. Lungs : Equal chest rise bilaterally, no use of accessory muscles, trachea is midline. Cor : Rate and rhythm are normal. Abdomen : Soft, Moderate D, TTP left hemiabdomen, no g/r/m Extremities : No edema, no cyanosis or clubbing, dorsalis pedis pulses are pres ent bilaterally, non-tender to palpation of calves. Upper extremities are normal bilaterally. Back : non-tender to palpation, no CVA tenderness. Neuro : CN II - XII intact, Upper and lower extremities have equal and full strength Data : 11/26/21 06:13 11/26/21 04:34 A&P Assessment and plan (1) Partial small bowel obstruction: Plan NPO/NGT IVF Will likely DC NGT and start clears in the morning, as he is now passing flatus Coding Level of Care Code Acute Rotary Engraver for [facility] Fwd Diagnoses Partial small bowel obstruction K56.600
[2021-11-26] MEDS: gabapentin 400 mg Capsule PO (20:34)
[2021-11-26] MEDS: pramipexole 0.25 mg Tablet PO (20:34)
[2021-11-26] MEDS: ipratropium 0.5 mg/2.5 mL Neb INHALATION (20:47)
[2021-11-27] VITALS (10 sets, daily range): BP systolic 132–150; BP diastolic 73–83; PULSE 88–99; RESP 15–22; TEMP 36.6–37.7; O2SAT 88–92
[2021-11-27] MEDS: sodium chloride 0.9% 1,000 ML 125 ML IV ×3 (00:13→17:13)
[2021-11-27 03:19] LABS: Basophils % 0.3 %; Eosinophils # 0.2 10^3/uL (0.0-0.8); Eosinophils % 1.7 %; Hematocrit 39.8 % (42.0-52.0); Hemoglobin 12.5 g/dL (11.7-16.6); Lymphocytes # 1.4 10^3/uL (0.8-4.8); Lymphocytes % 14.7 %; Mean Corpuscular HGB Conc 31.4 g/dL (30.0-36.0); Mean Corpuscular Hemoglobin 32.9 pg (28.0-34.0); Mean Corpuscular Volume 104.7 fl (80-94); Mean Platelet Volume 9.6 fL (7.4-10.4); Monocytes # 0.8 10^3/uL (0.2-0.9); Monocytes % 8.3 %; Neutrophils % 74.7 %; Nucleated Red Blood Cells % 0 %; Platelet Count 206 10^3/cmm (130-400); Red Cell Distribution Width 13.8 % (12.1-15.1); White Blood Count 9.3 10^3/uL (4.0-10.0)
[2021-11-27 03:52] LABS: Blood Urea Nitrogen 16 mg/dL (8-23); Carbon Dioxide 16 mmol/L (22-29); Chloride 115 mmol/L (98-107); Creatinine Clr Calc Pharmacy 65.4403; Glucose 60 mg/dL (65-115); Osmolality Calculated 295 mOsm/kg (285-295); Sodium 143 mmol/L (136-145)
[2021-11-27 04:16] LABS: Anion Gap 15.5 (5-19); Potassium 3.5 mmol/L (3.5-5.1)
[2021-11-27] MEDS: piperacillin-tazobactam 3.375 GM in sodium chloride 0.9% (plus) 50 ML IV ×3 (04:53→21:05)
[2021-11-27] MEDS: ipratropium 0.5 mg/2.5 mL Neb INHALATION ×4 (07:54→20:18)
[2021-11-27] MEDS: gabapentin 400 mg Capsule PO ×3 (08:58→21:06)
[2021-11-27] MEDS: pramipexole 0.25 mg Tablet 0.125 MG PO (08:58)
[2021-11-27] MEDS: clopidogrel 75 mg Tablet PO (08:59)
[2021-11-27] MEDS: fluoxetine 20 mg Capsule 40 MG PO (09:00)
--- NOTE | 2021-11-27 10:00 | PC.NURSE ---
Patient's states that Dr. Jordan removed patient's NG tube a few minutes before this nurse arrived and that Dr. Jordan stated that her could have clears for lunch.
--- NOTE | 2021-11-27 14:19 | PM.PN ---
Subjective Subjective: He passed a little bit more flatus. No stool in colostomy. Vitals/I&O/Wt Last Vital Signs Temp 98.3 F 11/27/21 11:45 Pulse 95 11/27/21 11:54 Resp 16 11/27/21 11:54 BP 150/79 11/27/21 11:45 Pulse Ox 92 11/27/21 11:54 O2 Del Method 11/27/21 11:54 O2 Flow Rate 1.5 11/27/21 09:13 11/26/21 11/27/21 11/27/21 22:59 06:59 14:59 Intake Total 1050 / 1200 1070 / 2270 1410 / 1410 Output Total 1000 / 1000 Balance 50 / 200 1070 / 1270 1410 / 1410 Weight last 48 hrs Weight 72.575 kg Physical Exam Narrative: at bedside. Const: COMMON NORMALS: patient oriented x3 and alert GENERAL APPEARANCE: cooperative ORIENTATION/CONSCIOUSNESS: Yes awake HENMT: COMMON NORMALS: oropharynx normal OTHER: NGT Neck/C-Spine: COMMON NORMALS: no JVD Resp: COMMON NORMALS: normal respiratory effort and clear to auscultation bilaterally AUSCULTATION: clear to auscultation bilaterally Cardio: COMMON NORMALS: no JVD, regular rhythm, S1 normal heart sound present, S2 normal heart sound present and No murmurs present (Cardio) RHYTHM: regular rhythm HEART SOUNDS: S1 normal heart sound present and S2 normal heart sound present GI: COMMON NORMALS: Normal to inspection, nondistended, normoactive bowel sounds present, Soft to palpation and non-tender PALPATION: Yes Soft to palpation OTHER: Colostomy bag empty : OTHER: Right nephrostomy Extremity: COMMON NORMALS: no joint enlargement and no pedal edema Neuro: COMMON NORMALS: patient oriented x3 and moves all extremities SENSORIUM/ORIENTATION: Yes alert Skin: COMMON NORMALS: no rashes or lesions noted GENERAL SKIN EXAM: no rashes or lesions noted Data : 11/27/21 02:37 11/27/21 02:37 Micro: Microbiology 11/25/21 17:52 Urine Culture - Preliminary Urine,Clean Catch Gram Negative Rods A&P Assessment and plan (1) Small bowel obstruction: Passing a little bit more gas. Last stool in colostomy sometime on Wednesday. He is trialing clear liquids this afternoon. Still some throat irritation after vomiting, NGT. I do not see obvious bleeding. Cepacol as needed. (2) Hemiplegia as late effect of stroke: Uses walker at home. Previously on Plavix, currently this has been on hold as has not been able to tolerate oral medication. Resume depending on need for surgical intervention with history of CVA once able to tolerate oral medications. Plan Possible left basilar infiltrate: Cannot exclude some aspiration after vomiting. Possibly some pneumonitis. He was started on Zosyn. Continue for now. He is doing well on room air. CKD History of Ca bladder Right nephrostomy? Colostomy lt ureteral stent changed day before admission. Following with urology in [place]. Attestations Medical Necessity Statement*: Continue assessment of management of partial small bowel obstruction. Coding Level of Care Code Acute Collision Repair Technician for [facility] Diagnoses Small bowel obstruction K56.609 Hemiplegia as late effect of stroke I69.359
--- NOTE | 2021-11-27 15:30 | P.PN_ITS ---
Subjective Subjective: Patient reports that his pain is much improved. He is still passing flatus. No bowel movement. Denies any nausea or vomiting. Vitals/I&O/Wt Last Vital Signs Temp 98.3 F 11/27/21 11:45 Pulse 95 11/27/21 11:54 Resp 16 11/27/21 11:54 BP 150/79 11/27/21 11:45 Pulse Ox 92 11/27/21 11:54 O2 Del Method 11/27/21 11:54 O2 Flow Rate 1.5 11/27/21 09:13 11/27/21 11/27/21 11/27/21 06:59 14:59 22:59 Intake Total 1070 / 2270 1410 / 1410 Balance 1070 / 1270 1410 / 1410 Weight last 48 hrs Weight 160 lb Physical Exam Narrative: General: No acute distress, awake alert and oriented x3 Abdomen: Soft, mildly distended, mild left-sided tenderness, no guarding rebound or masses Data : 11/27/21 02:37 11/27/21 02:37 Micro: Microbiology 11/25/21 17:52 Urine Culture - Preliminary Urine,Clean Catch Gram Negative Rods A&P Assessment and plan (1) Partial small bowel obstruction: Plan Obstruction resolving DC NGT and start clears Medical management per primary Will follow Attestations Medical Necessity Statement*: Patient requires at least 1 more night in the hospital for IV fluids and diet management. Coding Level of Care Code Acute Expansion Joint Builder for [facility] Diagnoses Partial small bowel obstruction K56.600
--- NOTE | 2021-11-27 18:54 | PC.NURSE ---
Report given to Gwendolyn JOAQUIN at this time
[2021-11-27] MEDS: pramipexole 0.25 mg Tablet PO (21:06)
[2021-11-27] MEDS: trazodone 150 mg Tablet PO (21:06)
[2021-11-27] MEDS: atorvastatin 40 mg Tablet 20 MG PO (21:06)
[2021-11-28] VITALS (12 sets, daily range): BP systolic 125–181; BP diastolic 73–98; PULSE 74–98; RESP 16–20; TEMP 36.5–37.2; O2SAT 87–99
[2021-11-28] MEDS: sodium chloride 0.9% 1,000 ML 125 ML IV ×2 (00:53→11:02)
[2021-11-28 04:06] LABS: Basophils % 0.3 %; Eosinophils # 0.3 10^3/uL (0.0-0.8); Eosinophils % 4.2 %; Hematocrit 41.5 % (42.0-52.0); Hemoglobin 13.2 g/dL (11.7-16.6); Lymphocytes # 1.7 10^3/uL (0.8-4.8); Lymphocytes % 22.3 %; Mean Corpuscular HGB Conc 31.8 g/dL (30.0-36.0); Mean Corpuscular Hemoglobin 32.8 pg (28.0-34.0); Mean Corpuscular Volume 103.2 fl (80-94); Mean Platelet Volume 9.3 fL (7.4-10.4); Monocytes # 0.8 10^3/uL (0.2-0.9); Neutrophils # 4.88 10^3/uL (1.8-7.7); Neutrophils % 62.8 %; Nucleated Red Blood Cells % 0 %; Platelet Count 200 10^3/cmm (130-400); Red Blood Count 4.02 10^6/uL (4.1-5.3); Red Cell Distribution Width 13.7 % (12.1-15.1); White Blood Count 7.8 10^3/uL (4.0-10.0)
[2021-11-28 04:29] LABS: Anion Gap 12.6 (5-19); Blood Urea Nitrogen 13 mg/dL (8-23); Calcium 8.3 mg/dL (8.5-10.5); Carbon Dioxide 21 mmol/L (22-29); Chloride 110 mmol/L (98-107); Glucose 93 mg/dL (65-115); Osmolality Calculated 290 mOsm/kg (285-295); Potassium 3.6 mmol/L (3.5-5.1); Sodium 140 mmol/L (136-145)
[2021-11-28] MEDS: piperacillin-tazobactam 3.375 GM in sodium chloride 0.9% (plus) 50 ML IV ×2 (06:15→14:48)
[2021-11-28] MEDS: ipratropium 0.5 mg/2.5 mL Neb INHALATION ×3 (08:01→15:02)
[2021-11-28] MEDS: gabapentin 400 mg Capsule PO ×2 (08:24→14:48)
[2021-11-28] MEDS: pramipexole 0.25 mg Tablet 0.125 MG PO (08:24)
[2021-11-28] MEDS: clopidogrel 75 mg Tablet PO (08:24)
[2021-11-28] MEDS: fluoxetine 20 mg Capsule 40 MG PO (08:24)
--- NOTE | 2021-11-28 11:07 | PC.SOCIAL ---
IMM update IMM updated with patient. Verbalized an understanding. Copy Pg 2 provided. Initialled, dated, timed, and placed in chart.
--- NOTE | 2021-11-28 11:50 | PM.PN ---
Subjective Subjective: He overall is doing okay. He is having some breakfast. Denies pain. Has been passing small flatus. No bowel movement. Later on in early afternoon having a small smear. Does not have a colostomy. Bowel to the right side abdominal ostomy is from urinary diversion. Discussed with him to walk around, for which he normally uses a walker. Vitals/I&O/Wt Last Vital Signs Temp 97.8 F 11/28/21 11:30 Pulse 80 11/28/21 11:30 Resp 16 11/28/21 11:30 BP 125/74 11/28/21 11:30 Pulse Ox 99 11/28/21 11:30 O2 Del Method 11/28/21 08:20 O2 Flow Rate 2 11/28/21 08:03 11/27/21 11/28/21 11/28/21 22:59 06:59 14:59 Intake Total 1290 / 2700 1508.333 / 4208.333 1120 / 1120 Output Total 850 / 850 Balance 1290 / 2700 658.333 / 3358.333 1120 / 1120 Physical Exam Narrative: at bedside. Const: COMMON NORMALS: patient oriented x3 and alert GENERAL APPEARANCE: cooperative ORIENTATION/CONSCIOUSNESS: Yes awake HENMT: COMMON NORMALS: oropharynx normal Neck/C-Spine: COMMON NORMALS: no JVD Resp: COMMON NORMALS: normal respiratory effort and clear to auscultation bilaterally AUSCULTATION: clear to auscultation bilaterally Cardio: COMMON NORMALS: no JVD, regular rhythm, S1 normal heart sound present, S2 normal heart sound present and No murmurs present (Cardio) RHYTHM: regular rhythm HEART SOUNDS: S1 normal heart sound present and S2 normal heart sound present GI: COMMON NORMALS: Normal to inspection, nondistended, normoactive bowel sounds present, Soft to palpation and non-tender PALPATION: Yes Soft to palpation OTHER: BS mildly hypoactive, but present. : OTHER: Right nephrostomy, R abdominal stoma - urinary diversion. Extremity: COMMON NORMALS: no joint enlargement and no pedal edema Neuro: COMMON NORMALS: patient oriented x3 and moves all extremities SENSORIUM/ORIENTATION: Yes alert Skin: COMMON NORMALS: no rashes or lesions noted GENERAL SKIN EXAM: no rashes or lesions noted Data : 11/28/21 03:37 11/28/21 03:37 Micro: Microbiology 11/25/21 17:52 Urine Culture - Preliminary Urine,Clean Catch Gram Negative Rods A&P Assessment and plan (1) Small bowel obstruction: Passing a little bit more gas. No bowel movement. NG tube has been removed. Trialing oral intake. Small stool smear early in the afternoon. Does not have colostomy, bowel at right abdominal stoma is urinary diversion with ureteral stent leading to left kidney. Ambulate (2) Hemiplegia as late effect of stroke: Uses walker at home. Plavix Plan Possible left basilar infiltrate: Cannot exclude some aspiration after vomiting. Possibly some pneumonitis. He was started on Zosyn. Continue for now. He is doing well on room air. CKD History of Ca bladder Right nephrostomy? Colostomy lt ureteral stent changed day before admission. Following with urology in [place]. Attestations Medical Necessity Statement*: Continue admission for assessment management of partial SBO. Coding Level of Care Code Acute Pulp Grinder for [facility] Diagnoses Small bowel obstruction K56.609 Hemiplegia as late effect of stroke I69.359
--- NOTE | 2021-11-28 13:18 | PM.PN ---
Subjective Subjective: Still passing flatus. He had a smear BM. He was mistakenly given a regular diet for breakfast and he tolerated it without nausea or vomiting. Vitals/I&O/Wt Last Vital Signs Temp 97.8 F 11/28/21 11:30 Pulse 80 11/28/21 12:40 Resp 18 11/28/21 12:34 BP 125/74 11/28/21 11:30 Pulse Ox 93 11/28/21 12:34 O2 Del Method 11/28/21 12:34 O2 Flow Rate 2 11/28/21 12:34 11/27/21 11/28/21 11/28/21 22:59 06:59 14:59 Intake Total 1290 / 2700 1508.333 / 4208.333 1120 / 1120 Output Total 850 / 850 Balance 1290 / 2700 658.333 / 3358.333 1120 / 1120 Physical Exam Narrative: General: No acute distress, awake alert and oriented x3 Abdomen: Soft, mildly distended, mild left-sided tenderness, no guarding rebound or masses Data : 11/28/21 03:37 11/28/21 03:37 Micro: Microbiology 11/25/21 17:52 Urine Culture - Preliminary Urine,Clean Catch Gram Negative Rods A&P Assessment and plan (1) Partial small bowel obstruction: Plan Obstruction resolving Regular diet, as he has alread tolerated it I would prefer that he had a BM before discharge, but this is not necessary Surgically stable for discharge if tolerating regular diet Medical management per primary Will follow Attestations Medical Necessity Statement*: Further hospitalization per hospitalist Coding Level of Care Code Acute Satellite Tv Technician for [facility] Diagnoses Partial small bowel obstruction K56.600
--- NOTE | 2021-11-28 14:31 | PM.DCS ---
Discharge Providers Date of Admission: 11/25/21 21:16 Date of Discharge: November 28, 2021 Attending Provider at Admission: Enrique Scruggs MD Attending Provider at Discharge: Yusef Morris Primary Care Provider: Yosvany Estrella Diagnoses at Discharge Discharge Diagnosis (1) Partial small bowel obstruction: Status: Acute Reason for Visit Reason for Visit: VOMITING BLOOD Hospital Course Hospital Course Pleasant 76-year-old gentleman with history of CVA, residual left-sided weakness, walks with a walker, bladder cancer status post cystectomy, with diverging urostomy, ureteral stenosis, left ureteral stent, right ureter on nephrostomy, stent exchanged day prior to admission in [place] by his urology team, was admitted due to generalized abdominal pain, nausea, vomiting, CT abdomen pelvis with small bowel obstruction findings transition point appearing to be not far from urinary stent. Was placed on bowel rest, NGT to suction, IV hydration. With possibility of aspiration, aspiration pneumonia, with left basilar infiltrate on CT he was treated with Zosyn while in the hospital. Urinalysis with possible UTI, culture growing gram-negative rods, identification and sensitivities pending. Noted CKD. For sore throat after emesis, and with NGT received phenol spray, Cepacol. With conservative management abdominal symptoms improved, started passing flatus little by little, and more currently. NGT was removed, tolerated clear liquids, today regular diet. Had a small smear, not yet a bowel movement, but is passing gas. Encouraged to ambulate which she states usually works for him at home to help with bowel movement. At this time discharging with Levaquin for now due to pneumonia and urinary tract infection pending ID insensitivity of gram-negative rods on urine culture. Physical Exam Narrative: at bedside. Const: COMMON NORMALS: patient oriented x3 and alert GENERAL APPEARANCE: cooperative ORIENTATION/CONSCIOUSNESS: Yes awake HENMT: COMMON NORMALS: oropharynx normal OTHER: NGT Neck/C-Spine: COMMON NORMALS: no JVD Resp: COMMON NORMALS: normal respiratory effort and clear to auscultation bilaterally AUSCULTATION: clear to auscultation bilaterally Cardio: COMMON NORMALS: no JVD, regular rhythm, S1 normal heart sound present, S2 normal heart sound present and No murmurs present (Cardio) RHYTHM: regular rhythm HEART SOUNDS: S1 normal heart sound present and S2 normal heart sound present GI: COMMON NORMALS: Normal to inspection, nondistended, normoactive bowel sounds present, Soft to palpation and non-tender PALPATION: Yes Soft to palpation OTHER: BS mildly hypoactive, but present. : OTHER: Right nephrostomy, R abdominal ostomy- urinary diversion. Extremity: COMMON NORMALS: no joint enlargement and no pedal edema Neuro: COMMON NORMALS: patient oriented x3 and moves all extremities SENSORIUM/ORIENTATION: Yes alert Skin: COMMON NORMALS: no rashes or lesions noted GENERAL SKIN EXAM: no rashes or lesions noted Discharge Data Studies Completed and Pending Completed Studies During Hospitalization Category Date Time Status CT abdomen pelvis w con* [id number] Stat Cat Scan 11/25/21 17:45 Completed XR KUB portable [id number] Stat Exams 11/25/21 18:43 Completed Pending at discharge Category Date Time Status Basic Metabolic Panel AM LABS Lab 11/29/21 04:00 Ordered Complete Blood Count w/Auto AM LABS Lab 11/29/21 04:00 Ordered Urine Culture Stat Lab 11/25/21 17:52 Results Radiology Impressions Abdomen/Pelvis CT 11/25/21 17:45 IMPRESSION: 1. Small bowel obstruction. 2. Question of increasing left basilar infiltrate. ADDENDUM: 11/25/21 1844 Get addendumTHIS REPORT CONTAINS FINDINGS THAT MAY BE CRITICAL TO PATIENT CARE. The findings were verbally communicated via telephone conference with ROSALIE PATTERSON at 6:42 PM CDT on 11/25/2021. The findings were acknowledged and understood. KUB X-Ray 11/25/21 18:43 IMPRESSION: Nasogastric tube tip is in the stomach. Laboratory Results WBC 7.8 10^3/uL (4.0-10.0) 11/28/21 03:37 Corrected WBC Cancelled 11/26/21 04:34 RBC 4.02 10^6/uL (4.1-5.3) L 11/28/21 03:37 Hgb 13.2 g/dL (11.7-16.6) 11/28/21 03:37 Hct 41.5 % (42.0-52.0) L 11/28/21 03:37 MCV 103.2 fl (80-94) H 11/28/21 03:37 MCH 32.8 pg (28.0-34.0) 11/28/21 03:37 MCHC 31.8 g/dL (30.0-36.0) 11/28/21 03:37 RDW 13.7 % (12.1-15.1) 11/28/21 03:37 Plt Count 200 10^3/cmm (130-400) 11/28/21 03:37 MPV 9.3 fL (7.4-10.4) 11/28/21 03:37 Gran % Cancelled 11/26/21 04:34 Neut % (Auto) 62.8 % 11/28/21 03:37 Lymph % (Auto) 22.3 % 11/28/21 03:37 [place] % (Auto) 10.0 % 11/28/21 03:37 Eos % (Auto) 4.2 % 11/28/21 03:37 Baso % (Auto) 0.3 % 11/28/21 03:37 Neut # (Auto) 4.88 10^3/uL (1.8-7.7) 11/28/21 03:37 Lymph # (Auto) 1.7 10^3/uL (0.8-4.8) 11/28/21 03:37 [place] # (Auto) 0.8 10^3/uL (0.2-0.9) 11/28/21 03:37 Eos # (Auto) 0.3 10^3/uL (0.0-0.8) 11/28/21 03:37 Baso # (Auto) 0.0 10^3/uL (0.0-0.1) 11/28/21 03:37 Absolute Gran (auto) Cancelled 11/26/21 04:34 Nucleated RBC % (auto) 0 % 11/28/21 03:37 Nucleated RBCs # 0.0 /100WBC 11/28/21 03:37 PT 14.40 SECONDS (12.1-14.9) 11/25/21 18:50 INR 1.09 (0.8-1.2) 11/25/21 18:50 APTT 33.2 SECONDS (23.9-36.7) 11/25/21 18:50 Sodium 140 mmol/L (136-145) 11/28/21 03:37 Potassium 3.6 mmol/L (3.5-5.1) 11/28/21 03:37 Chloride 110 mmol/L (98-107) H 11/28/21 03:37 Carbon Dioxide 21 mmol/L (22-29) L 11/28/21 03:37 Anion Gap 12.6 (5-19) 11/28/21 03:37 BUN 13 mg/dL (8-23) 11/28/21 03:37 Creatinine 1.0 mg/dL (0.7-1.2) 11/28/21 03:37 GFR Calculation Not Reportable 11/28/21 03:37 Glucose 93 mg/dL (65-115) 11/28/21 03:37 Calculated Osmolality 290 mOsm/kg (285-295) 11/28/21 03:37 Lactate 0.7 mmol/L (0.5-2.2) 11/25/21 18:50 Calcium 8.3 mg/dL (8.5-10.5) L 11/28/21 03:37 Total Bilirubin 0.5 mg/dL (0.15-1.2) 11/26/21 04:34 AST 15 U/L (0-40) 11/26/21 04:34 ALT 15 U/L (0-41) 11/26/21 04:34 Alkaline Phosphatase 117 U/L (40-130) 11/26/21 04:34 Total Protein 7.0 g/dL (6.6-8.7) 11/26/21 04:34 Albumin 3.2 g/dL (3.5-5.2) L 11/26/21 04:34 Globulin 3.8 g/dL (1.3-4.6) 11/26/21 04:34 Lipase 11 U/L (13-60) L 11/25/21 16:33 Urine Color Dark yellow (Yellow) 11/25/21 17:52 Urine Appearance Turbid (CLEAR) A 11/25/21 17:52 Urine pH 6.5 (5-7) 11/25/21 17:52 Ur Specific [place] 1.025 (1.005-1.030) 11/25/21 17:52 Urine Protein 3+ 11/25/21 17:52 Urine Glucose (UA) Negative (Normal) 11/25/21 17:52 Urine Ketones Trace (Negative) A 11/25/21 17:52 Urine Blood Large (Negative) A 11/25/21 17:52 Urine Nitrate Negative 11/25/21 17:52 Urine Bilirubin 1+ (Negative) 11/25/21 17:52 Urine Urobilinogen 0.2 mg/dL (Negative) 11/25/21 17:52 Ur Leukocyte Esterase 3+ 11/25/21 17:52 Urine RBC >100 /hpf (0-2) H 11/25/21 17:52 Urine WBC >100 /hpf (0-5) H 11/25/21 17:52 Ur Squamous Epith Cells 0-4 /hpf (0-5) H 11/25/21 17:52 Amorphous Sediment Not Reportable 11/25/21 17:52 Urine Bacteria 4+ /hpf (NONE) H 11/25/21 17:52 Vitals Last Vital Signs Temp 97.8 F 11/28/21 11:30 Pulse 80 11/28/21 12:40 Resp 18 11/28/21 12:34 BP 125/74 11/28/21 11:30 Pulse Ox 93 11/28/21 12:34 O2 Del Method 11/28/21 12:34 O2 Flow Rate 2 11/28/21 12:34 Discharge Plan Discharge Patient Disposition: Home Condition: Stable Prescriptions: New levofloxacin 500 mg tablet 500 mg PO DAILY 5 Days Qty: 5 0RF Continued amlodipine 5 mg tablet 5 mg PO DAILY clopidogrel 75 mg tablet 75 mg PO DAILY fluoxetine 40 mg capsule 40 mg PO DAILY simvastatin 20 mg tablet 20 mg PO DAILY trazodone 150 mg tablet 150 mg PO DAILY albuterol 90 mcg/actuation aerosol 90 mcg inhalation Q6H PRN (Reason: Shortness Of Breath) budesonide-formoterol [Symbicort] 160-4.5 mcg/actuation HFA aerosol inhaler 2 puff inhalation BID Spiriva Respimat 1.25 mcg/actuation mist 2 puff inhalation DAILY gabapentin 400 mg capsule 400 mg PO TID Qty: 90 5RF pramipexole 0.125 mg tablet See Rx Instructions .ROUTE .COMPLEX Qty: 90 0RF Dose Instruction: TAKE 1 TABLET BY MOUTH IN THE MORNING, AND 2 TABLETS AT NIGHT Rx Instructions: TAKE 1 TABLET BY MOUTH IN THE MORNING, AND 2 TABLETS AT NIGHT Discharge Orders: Discharge Order (Routine); Ordered 11/28/21 Ordered By: Yusef Morris Referrals: Yosvany Estrella [Primary Care Provider] - 12/04/21 11:20 am Discharge Activity: Increase activity as tolerated and Use walker/crutches as instructed Patient Instructions: Levofloxacin (By mouth) Patient's Health Concerns: Avoid dehydration, add fiber today. Complete antibiotic course for pneumonia. Follow-up with your primary doctor for reassessment of partial small bowel obstruction and pneumonia and urinary tract infection. Urine culture is growing gram-negative rods, identification and sensitivities pending. Please follow-up with your primary doctor and discuss with your urology team. Continue follow-up with urology. Discharge Attestations Time Spent in Discharge Care*: greater than 30 min Quality Metrics Clinical Quality Measures [ No reported AMI, CVA or VTE this stay] Coding Level of Care Code Acute g FW GA note Diagnoses Partial small bowel obstruction K56.600
--- NOTE | 2021-11-28 19:41 | PC.NURSE ---
This nurse discharged patient out of the computer only for the day shift RN.
== END 2021-11-28 16:04 | disposition home or self-care (01) | DRG 388 ==
LOC: ER 17:46 → MEDSURG 20:54
PROVIDERS: Admitting Provider Internal Medicine; Emergency Provider Emergency Medicine; PCP Family Medicine; Visit Provider Internal Medicine
DX: K56.600 Partial intestinal obstruction, unspecified as to cause (principal); J69.0 Pneumonitis due to inhalation of food and vomit; I69.954 Hemiplegia and hemiparesis following unspecified cerebrovascular disease affecting left non-dominant side; N39.0 Urinary tract infection, site not specified; N18.9 Chronic kidney disease, unspecified; Z85.51 Personal history of malignant neoplasm of bladder; Z93.6 Other artificial openings of urinary tract status; Z96.0 Presence of urogenital implants; Z79.02 Long term (current) use of antithrombotics/antiplatelets; Z79.891 Long term (current) use of opiate analgesic
CPT/HCPCS: 36415; 74018; 74176; 74177; 80048; 80053; 81001; 83605; 83690; 85025; 85610; 85730; 87077; 87086; 87186; 94640; 94760; 96365; 96375; 99284; 99285; C9113; J0360; J0696; J2250; J2405; J2543; J7030; J7040; J7644; J9352; Q9967

== ENCOUNTER → 2021-12-18 13:17 | Outpatient (BNVA) | payer MEDICARE, OTHER, SELFPAY | PROVIDERS: PCP Family Medicine; Visit Provider Specialist | DX: I69.354 Hemiplegia and hemiparesis following cerebral infarction affecting left non-dominant side (principal); G50.0 Trigeminal neuralgia; R20.8 Other disturbances of skin sensation; I69.398 Other sequelae of cerebral infarction | CPT/HCPCS: 64616; 64644; J0585 ==

== ENCOUNTER 2021-12-31 08:52 | Emergency (ER) | payer MEDICARE, OTHER, SELFPAY ==
[2021-12-31] VITALS (13 sets, daily range): BP systolic 124–145; BP diastolic 77–87; PULSE 92–107; RESP 15–20; TEMP 37.3; O2SAT 91–95; BMI 29.0
--- NOTE | 2021-12-31 09:03 | XRR_ITS ---
PROCEDURE INFORMATION: Exam: XR Chest Exam date and time: 12/31/2021 9:09 AM Age: 76 years old Clinical indication: Patient HX: Sore throat and cough for a few days. Took a home test for covid. Tested negative. TECHNIQUE: Imaging protocol: Radiologic exam of the chest. Views: 1 view. COMPARISON: CR XR chest 1V [id number] 07/04/2018 5:36 AM FINDINGS: Tubes, catheters and devices: There is a left subclavian port present with the catheter tip in the right atrium. Lungs: No pulmonary vascular congestion, pulmonary edema or pneumonia. Changes in both lungs compatible with emphysema. Left basilar atelectasis. Pleural spaces: No pleural effusion or pneumothorax. Heart/Mediastinum: The cardiac silhouette is not enlarged. The mediastinal contours are normal. Bones/joints: No acute osseous abnormality. XR/XR chest 1V portable [id number] IMPRESSION: 1. Emphysema. 2. Left basilar atelectasis. 3. No sign of pneumonia.
--- NOTE | 2021-12-31 09:04 | PC.NURSE ---
per EMS, pt has hx of bladder CA, has urostomy with 2 bags. pt c/o sore throat, cough, and fever since last night. Per EMS, temp was 100.4 orally, blood glucose 103. EMS administered albuterol, a duo neb, and 125mg Solu Medrol en route. pt has hx CVA with left side residual affected. pt denies any trouble breathing, cp, or other pain outside of a sore throat. pt reports he took a home covid test and that it was negative. Pt is alert and oriented to person, place, and month. lung sounds clear bilat. bowel sounds present. urostomy present. oral mucosa pink and dry. no erythema or exudate visualized in throat.6
--- NOTE | 2021-12-31 09:16 | ECG_ITS ---
[facility] Test Date: 2021-12-31 Pat Name: Maxwell Grimes Department: Room: Gender: Male Business Development Professional: : 1945 Requested By: Hamzah Dawn Order Number: [id number] Dodge MD: Palmira Alonso M.D. Measurements Intervals [place] Rate: 102 P: 67 NV: 177 QRS: 18 QRSD: 88 T: 78 QT: 346 QTc: 451 Interpretive Statements SINUS TACHYCARDIA Compared to ECG 07/04/2018 11:22:44 Sinus rhythm no longer present Electronically Signed On 12-31-2021 12:08:36 CDT by Palmira Alonso M.D. [email or web address]
--- NOTE | 2021-12-31 09:16 | ED_ITS ---
HPI - General Adult General: Chief complaint: General Medical Stated complaint: Sore Throat Time Seen by Provider: 12/31/21 09:03 History of Present Illness: Patient is a 76-year-old male comes to the ED via EMS with cough and sore throat. While in route EMS gave patient a dose of Solu- Medrol, DuoNeb and albuterol breathing treatment. Symptoms started yesterday. Past medical history of COPD and stroke with residual left-sided weakness. Patient is on home oxygen 2 L via nasal cannula. Patient is ambulatory with walker at baseline. Patient has been having a cough and sore throat. Cough is dry nonproductive. He had a low-grade fever this morning and patient took Tylenol at 6 AM this morning. Patient took an at home COVID test and it was negative. Patient is not requiring any more oxygen at home than 2 L. Denies any chest pain, shortness of breath, nausea, vomiting, bladder or bowel symptoms. Associated symptoms: Deny chest pain, dyspnea, headache(s), nausea, rash, palpitations or vomiting Review of Systems Const: Reports: fever(s); Denies: chills or fatigue Eyes: Denies: change in vision or eye discomfort ENMT: Reports: throat pain; Denies: odynophagia, nasal discharge or nasal congestion Card: Denies: chest pain, palpitations, edema, swelling of feet/ankles, dyspnea on exertion or orthopnea Resp: Reports: non-productive cough; Denies: dyspnea or productive cough GI: Denies: abdominal pain, nausea, vomiting, diarrhea, constipation or hematochezia : Denies: flank pain, difficulty urinating, dysuria or hematuria Musc: Denies: neck pain, back pain or extremity swelling Skin/Breast: Denies: rash or new lesions Neuro: Denies: headache(s), numbness in extremities or weakness in extremities PFSH ED PFSH: Medical History 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 Surgical History History of urostomy Social History Smoking and tobacco status: former smoker Physical Exam Const: COMMON NORMALS: no acute distress, patient oriented x3 and alert GENERAL APPEARANCE: cooperative and comfortable HENMT: COMMON NORMALS: normocephalic HEAD & SCALP: normocephalic MOUTH: Normal oral and palatal mucosa present THROAT: posterior oropharynx normal and uvula midline Neck/C-Spine: COMMON NORMALS: supple GENERAL: Yes normal visual inspection Resp: COMMON NORMALS: normal respiratory effort, No retractions, No use of accessory muscles and clear to auscultation bilaterally AUSCULTATION: clear to auscultation bilaterally Cardio: COMMON NORMALS: regular rate, regular rhythm, S1 normal heart sound present, S2 normal heart sound present, No gallops present (Cardio), No clicks present (Cardio), No murmurs present (Cardio) and Peripheral pulses 2+ throughout RATE: regular rate RHYTHM: regular rhythm HEART SOUNDS: S1 normal heart sound present and S2 normal heart sound present PERIPHERAL PULSES: Peripheral pulses 2+ throughout GI: COMMON NORMALS: Normal to inspection, nondistended, normoactive bowel sounds present, Soft to palpation, non-tender and no masses PALPATION: Yes Soft to palpation : COMMON NORMALS: Yes no CVA tenderness BLADDER/KIDNEY EXAM: Yes no CVA tenderness Back/Pelvis: COMMON NORMALS: no CVA tenderness Extremity: COMMON NORMALS: normal to inspection Neuro: COMMON NORMALS: patient oriented x3 SENSORIUM/ORIENTATION: Yes alert GAIT: Yes Normal gait present Skin: GENERAL SKIN EXAM: dry skin Course Vital Signs: Vital signs: Vital Signs Temperature 99.2 F 12/31/21 09:02 Pulse Rate 98 12/31/21 12:03 Respiratory Rate 19 H 12/31/21 12:03 Blood Pressure 141/87 12/31/21 12:03 Pulse Oximetry 91 12/31/21 12:03 Oxygen Delivery Me thod 12/31/21 11:22 Oxygen Flow Rate 2 12/31/21 11:22 [facility] - General Adult Medical Decision Making Patient is a 76-year-old male comes to the ED via EMS with cough and sore throat. While in route EMS gave patient a dose of Solu-Medrol, DuoNeb and albuterol breathing treatment. Symptoms started yesterday. Past medical history of COPD and stroke with residual left-sided weakness. Patient is on home oxygen 2 L via nasal cannula. Patient is not requiring any more than 2 L of oxygen at home. Denies any chest pain. Vitals are stable. Exam is benign. White blood cell count 14.8 but the rest of CBC and CMP were unremarkable. Chest x-ray shows emphysema but no pneumonia. Strep, influenza and COVID were all negative. Patient was diagnosed with COPD with acute bronchitis and discharged home with a prescription for steroid and antibiotic. Told to follow- up with his PCP within the next couple days for reevaluation. Strict return to ED precautions given. Patient understood and agreed with plan. Lab Data I reviewed the patient's lab results. : 12/31/21 09:10 12/31/21 09:10 Radiology Impressions Chest X-Ray 12/31/21 09:03 IMPRESSION: 1. Emphysema. 2. Left basilar atelectasis. 3. No sign of pneumonia. Laboratory Results WBC 14.8 10^3/uL (4.0-10.0) H 12/31/21 09:10 RBC 4.55 10^6/uL (4.1-5.3) 12/31/21 09:10 Hgb 15.3 g/dL (11.7-16.6) 12/31/21 09:10 Hct 46.0 % (42.0-52.0) 12/31/21 09:10 MCV 101.1 fl (80-94) H 12/31/21 09:10 MCH 33.6 pg (28.0-34.0) 12/31/21 09:10 MCHC 33.3 g/dL (30.0-36.0) 12/31/21 09:10 RDW 14.0 % (12.1-15.1) 12/31/21 09:10 Plt Count 215 10^3/cmm (130-400) 12/31/21 09:10 MPV 9.2 fL (7.4-10.4) 12/31/21 09:10 Neut % (Auto) 66.5 % 12/31/21 09:10 Lymph % (Auto) 23.7 % 12/31/21 09:10 [place] % (Auto) 7.5 % 12/31/21 09:10 Eos % (Auto) 1.4 % 12/31/21 09:10 Baso % (Auto) 0.3 % 12/31/21 09:10 Neut # (Auto) 9.88 10^3/uL (1.8-7.7) H 12/31/21 09:10 Lymph # (Auto) 3.5 10^3/uL (0.8-4.8) 12/31/21 09:10 [place] # (Auto) 1.1 10^3/uL (0.2-0.9) H 12/31/21 09:10 Eos # (Auto) 0.2 10^3/uL (0.0-0.8) 12/31/21 09:10 Baso # (Auto) 0.0 10^3/uL (0.0-0.1) 12/31/21 09:10 Nucleated RBC % (auto) 0 % 12/31/21 09:10 Nucleated RBCs # 0.0 /100WBC 12/31/21 09:10 Sodium 140 mmol/L (136-145) 12/31/21 09:10 Potassium 4.0 mmol/L (3.5-5.1) 12/31/21 09:10 Chloride 103 mmol/L (98-107) 12/31/21 09:10 Carbon Dioxide 24 mmol/L (22-29) 12/31/21 09:10 Anion Gap 17.0 (5-19) 12/31/21 09:10 BUN 14 mg/dL (8-23) 12/31/21 09:10 Creatinine 1.1 mg/dL (0.7-1.2) 12/31/21 09:10 GFR Calculation Not Reportable 12/31/21 09:10 Glucose 114 mg/dL (65-115) 12/31/21 09:10 Calculated Osmolality 291 mOsm/kg (285-295) 12/31/21 09:10 Calcium 9.2 mg/dL (8.5-10.5) 12/31/21 09:10 Total Bilirubin 0.9 mg/dL (0.15-1.2) 12/31/21 09:10 AST 15 U/L (0-40) 12/31/21 09:10 ALT 20 U/L (0-41) 12/31/21 09:10 Alkaline Phosphatase 124 U/L (40-130) 12/31/21 09:10 Total Protein 7.3 g/dL (6.6-8.7) 12/31/21 09:10 Albumin 3.8 g/dL (3.5-5.2) 12/31/21 09:10 Globulin 3.5 g/dL (1.3-4.6) 12/31/21 09:10 Influenza Type A Ag negative (Negative) 12/31/21 09:27 Influenza Type B Ag negative (Negative) 12/31/21 09:27 SARS-CoV-2 Ag (Rapid) negative (Negative) 12/31/21 09:27 Group A Strep Rapid Negative (Negative) 12/31/21 09:27 Discharge Plan Discharge Patient Disposition: Home Clinical Impression: COPD with acute bronchitis Condition: Stable Prescriptions: New azithromycin 250 mg tablet 250 mg PO DAILY 4 Days Qty: 4 0RF Rx Instructions: start on day 2 of therapy methylprednisolone 4 mg tablets,dose pack See Rx Instructions .ROUTE .COMPLEX Qty: 21 0RF Rx Instructions: orally per package directions No Action amlodipine 5 mg tablet 5 mg PO DAILY clopidogrel 75 mg tablet 75 mg PO DAILY fluoxetine 40 mg capsule 40 mg PO DAILY simvastatin 20 mg tablet 20 mg PO DAILY trazodone 150 mg tablet 150 mg PO DAILY albuterol 90 mcg/actuation aerosol 90 mcg inhalation Q6H PRN (Reason: Shortness Of Breath) budesonide-formoterol [Symbicort] 160-4.5 mcg/actuation HFA aerosol inhaler 2 puff inhalation BID Spiriva Respimat 1.25 mcg/actuation mist 2 puff inhalation DAILY gabapentin 400 mg capsule 400 mg PO TID Qty: 90 5RF pramipexole 0.125 mg tablet See Rx Instructions .ROUTE .COMPLEX Qty: 90 0RF Dose Instruction: TAKE 1 TABLET BY MOUTH IN THE MORNING, AND 2 TABLETS AT NIGHT Rx Instructions: TAKE 1 TABLET BY MOUTH IN THE MORNING, AND 2 TABLETS AT NIGHT Discharge Orders: Discharge ED (Routine); Ordered 12/31/21 Ordered By: Hamzah Dawn Referrals: Yosvany Estrella [Primary Care Provider] - Discharge Diet: Regular Discharge Activity: Increase activity as tolerated Activity Restrictions/Additional Instructions: Follow-up with medical provider as directed in the next 3 to 5 days for reevaluation. Take medications as prescribed. Return to the ER or your medical provider if condition worsens. Please read and understand discharge instructions. Thank you for choosing [facility] for your healthcare needs today. Raul wild realize this is an emergency room and that we are providing you with a medical screening exam and this may not be complete and all inclusive of all the testing and or work up that you may need to determine your ailment or severity of your illness. It is very important that you follow up as instructed or that you return to the Emergency Department should you have concerns or if your condition changes or worsens in any way. Coding Level of Care Code ED Scallop Cutter Machine for Brandan Fwd Exam Comprehensive
[2021-12-31 09:29] LABS: Basophils % 0.3 %; Eosinophils # 0.2 10^3/uL (0.0-0.8); Eosinophils % 1.4 %; Hemoglobin 15.3 g/dL (11.7-16.6); Lymphocytes # 3.5 10^3/uL (0.8-4.8); Lymphocytes % 23.7 %; Mean Corpuscular HGB Conc 33.3 g/dL (30.0-36.0); Mean Corpuscular Hemoglobin 33.6 pg (28.0-34.0); Mean Corpuscular Volume 101.1 fl (80-94); Mean Platelet Volume 9.2 fL (7.4-10.4); Monocytes # 1.1 10^3/uL (0.2-0.9); Monocytes % 7.5 %; Neutrophils # 9.88 10^3/uL (1.8-7.7); Neutrophils % 66.5 %; Nucleated Red Blood Cells % 0 %; Platelet Count 215 10^3/cmm (130-400); Red Blood Count 4.55 10^6/uL (4.1-5.3); White Blood Count 14.8 10^3/uL (4.0-10.0)
[2021-12-31 09:36] LABS: Alanine Aminotransferase 20 U/L (0-41); Albumin Level 3.8 g/dL (3.5-5.2); Alkaline Phosphatase 124 U/L (40-130); Aspartate Amino Transferase 15 U/L (0-40); Blood Urea Nitrogen 14 mg/dL (8-23); Calcium 9.2 mg/dL (8.5-10.5); Carbon Dioxide 24 mmol/L (22-29); Chloride 103 mmol/L (98-107); Globulin 3.5 g/dL (1.3-4.6); Glucose 114 mg/dL (65-115); Osmolality Calculated 291 mOsm/kg (285-295); Sodium 140 mmol/L (136-145); Total Bilirubin 0.9 mg/dL (0.15-1.2); Total Protein 7.3 g/dL (6.6-8.7)
[2021-12-31] MEDS: sodium chloride 0.9% 500 ML 999 ML IV (09:53)
[2021-12-31 10:02] LABS: Rapid Strep A Test Negative (Negative)
[2021-12-31 10:07] LABS: SARS Covid-2 Antigen negative (Negative)
[2021-12-31 10:09] LABS: Influenza A by IFA negative (Negative); Influenza B by IFA negative (Negative)
[2021-12-31] MEDS: ipratropium-albuterol 3 mL Neb INHALATION (11:22)
[2021-12-31] MEDS: azithromycin 250 mg Tablet 500 MG PO (11:39)
== END 2021-12-31 12:05 | disposition home or self-care (01) ==
PROVIDERS: Emergency Provider Physician Assistant; PCP Family Medicine
DX: J44.0 Chronic obstructive pulmonary disease with (acute) lower respiratory infection (principal); J20.9 Acute bronchitis, unspecified; Z79.02 Long term (current) use of antithrombotics/antiplatelets; Z20.822 Contact with and (suspected) exposure to COVID-19; Z87.891 Personal history of nicotine dependence
CPT/HCPCS: 71045; 80053; 85025; 87081; 87426; 87804; 87880; 93005; 94640; 96360; 99285; J7040; Q0144

== ENCOUNTER 2022-01-04 09:08 | Emergency (ER) | payer MEDICARE, OTHER, SELFPAY ==
[2022-01-04 09:09] VITALS: BP 132/80; PULSE 96; RESP 20; O2SAT 94; BMI 32.3
--- NOTE | 2022-01-04 09:21 | ED_ITS ---
HPI - SOB/Dyspnea General: Chief Complaint: Shortness of Breath/Dyspnea Stated Complaint: SOB Time Seen by Provider: 01/04/22 09:14 History of Present Illness: HPI Narrative: 76-year-old male presents with shortness of breath. Patient was recently sent home from the hospital on oxygen. He is currently on 2 L. He reports that this morning he just got really short of breath. Patient was given a DuoNeb, albuterol and steroids in route and feels a lot better. Patient's prescribed and inhalers but reports that he is not taking any and does not have any at home. Patient denies any significant change in cough, fevers chills or other systemic complaints. Patient Associated symptoms: Deny abdominal pain, chest pain, dizziness, fever(s), nausea, palpitations or vomiting Review of Systems Const: Reports: fatigue; Denies: fever(s) or chills Eyes: Denies: change in vision or blurry vision ENMT: Denies: throat pain or ear or mastoid pain Card: Denies: chest pain or palpitations Resp: Reports: dyspnea and non-productive cough; Denies: wheezing GI: Denies: abdominal pain, nausea or vomiting Musc: Denies: neck pain Skin/Breast: Denies: rash Neuro: Denies: headache(s) or dizziness Psych: Denies: anxiety PFSH ED PFSH: Medical History 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 Surgical History History of urostomy Social History Smoking and tobacco status: former smoker Physical Exam Const: COMMON NORMALS: no acute distress, patient oriented x3 and alert ORIENTATION/CONSCIOUSNESS: Yes oriented to person, Yes oriented to place and Yes oriented to time HENMT: COMMON NORMALS: hearing grossly normal bilaterally and moist oral mucous membranes Eye: COMMON NORMALS: Equal, round and reactive pupils present and EOMs intact bilaterally PUPIL: Yes Equal, round and reactive pupils present Chest: CHEST: Yes Symmetrical chest wall rise Resp: COMMON NORMALS: normal respiratory effort and No retractions AUSCULT ATION: wheezes (Mild bilateral bases) expiratory wheezes Cardio: COMMON NORMALS: regular rate and regular rhythm RATE: regular rate RHYTHM: regular rhythm GI: COMMON NORMALS: Soft to palpation INSPECTION: Yes other (Stoma right lower quadrant) PALPATION: Yes Soft to palpation and No Tenderness to palpation present (GI) Extremity: COMMON NORMALS: capillary refill normal Neuro: COMMON NORMALS: patient oriented x3 SENSORIUM/ORIENTATION: Yes alert, Yes oriented to person, Yes oriented to place and Yes oriented to time Psych: COMMON NORMALS: mental status grossly normal, cooperative and normal affect Course Vital Signs: Vital signs: Vital Signs Pulse Rate 90 01/04/22 14:24 Respiratory Rate 20 H 01/04/22 14:24 Blood Pressure 127/80 01/04/22 14:24 Pulse Oximetry 93 01/04/22 14:24 Oxygen Delivery Me thod 01/04/22 12:15 Oxygen Flow Rate 3 01/04/22 12:15 MDM - SOB/Dyspnea Medical Decision Making Patient's arrived and clarified that he is currently finishing up both steroids and antibiotic. That he has not been using his albuterol because he was not aware of it. I discussed proper use of albuterol with the patient and recommended he use it every 4-6 hours for the next 2 days regardless of if he feels he needs it or not. Recommended he follow-up with his primary care provider in 3 days for recheck of his symptoms. That he continues his antibiotic and steroid. This is likely the cause of his elevated white count as the steroids. Also give him a Tessalon Perle to help him rest due to the cough. Patient stable and discharged home Lab Data : 01/04/22 09:22 01/04/22 09:22 Labs/Radiology: Radiology Impressions Chest X-Ray 01/04/22 09:29 IMPRESSION: 1. No acute findings. 2. Left central line extends to the right atrium Laboratory Results WBC 13.7 10^3/uL (4.0-10.0) H 01/04/22 09:22 RBC 4.59 10^6/uL (4.1-5.3) 01/04/22 09:22 Hgb 15.0 g/dL (11.7-16.6) 01/04/22 09:22 Hct 46.1 % (42.0-52.0) 01/04/22 09:22 MCV 100.4 fl (80-94) H 01/04/22 09: MCH 32.7 pg (28.0-34.0) 01/04/22 09: MCHC 32.5 g/dL (30.0-36.0) 01/04/22 09: RDW 13.5 % (12.1-15.1) 01/04/22 09:22 Plt Count 288 10^3/cmm (130-400) 01/04/22 09: MPV 9.4 fL (7.4-10.4) 01/04/22 09: Neut % (Auto) 69.6 % 01/04/22 09: Lymph % (Auto) 20.9 % 01/04/22 09: [place] % (Auto) 8.3 % 01/04/22 09: Eos % (Auto) 0.6 % 01/04/22 09: Baso % (Auto) 0.2 % 01/04/22: Neut # (Auto) 9.52 10^3/uL (1.8-7.7) H 01/04/22 09: Lymph # (Auto) 2.9 10^3/uL (0.8-4.8) 01/04/22 09: [place] # (Auto) 1.1 10^3/uL (0.2-0.9) H 01/04/22 09: Eos # (Auto) 0.1 10^3/uL (0.0-0.8) 01/04/22 09: Baso # (Auto) 0.0 10^3/uL (0.0-0.1) 01/04/22 09: Nucleated RBC % (auto) 0 % 01/04/22 09: Nucleated RBCs # 0.0 /100WBC 01/04/22 09: Sodium 138 mmol/L (136-145) 01/04/22 09:22 Potassium 3.9 mmol/L (3.5-5.1) 01/04/22 09: Chloride 100 mmol/L (98-107) 01/04/22 09: Carbon Dioxide 27 mmol/L (22-29) 01/04/22 09:22 Anion Gap 14.9 (5-19) 01/04/22 09:22 BUN 19 mg/dL (8-23) 01/04/22 09:22 Creatinine 1.0 mg/dL (0.7-1.2) 01/04/22 09:22 GFR Calculation Not Reportable 01/04/22 09:22 Glucose 108 mg/dL (65-115) 01/04/22 09:22 Calculated Osmolality 289 mOsm/kg (285-295) 01/04/22 09:22 Calcium 9.4 mg/dL (8.5-10.5) 01/04/22 09:22 Total Bilirubin 0.4 mg/dL (0.15-1.2) 01/04/22 09:22 AST 10 U/L (0-40) 01/04/22:22 ALT 13 U/L (0-41) 01/04/22 09:22 Alkaline Phosphatase 110 U/L (40-130) 01/04/22 09:22 Troponin T Baseline 21 ng/L (0-15) H 01/04/22 09:22 C-Reactive Protein 26.5 mg/L (0.0-4.9) H 01/04/22 09:22 Total Protein 7.4 g/dL (6.6-8.7) 01/04/22 09:22 Albumin 3.9 g/dL (3.5-5.2) 01/04/22 09:22 Globulin 3.5 g/dL (1.3-4.6) 01/04/22 09:22 Discharge Plan Discharge Patient Disposition: Home Clinical Impression: Bronchitis Condition: Stable Prescriptions: No Action amlodipine 5 mg tablet 5 mg PO DAILY clopidogrel 75 mg tablet 75 mg PO DAILY fluoxetine 40 mg capsule 40 mg PO DAILY simvastatin 20 mg tablet 20 mg PO DAILY trazodone 150 mg tablet 150 mg PO DAILY albuterol 90 mcg/actuation aerosol 90 mcg inhalation Q6H PRN (Reason: Shortness Of Breath) budesonide-formoterol [Symbicort] 160-4.5 mcg/actuation HFA aerosol inhaler 2 puff inhalation BID Spiriva Respimat 1.25 mcg/actuation mist 2 puff inhalation DAILY gabapentin 400 mg capsule 400 mg PO TID Qty: 90 5RF pramipexole 0.125 mg tablet See Rx Instructions .ROUTE .COMPLEX Qty: 90 0RF Dose Instruction: TAKE 1 TABLET BY MOUTH IN THE MORNING, AND 2 TABLETS AT NIGHT Rx Instructions: TAKE 1 TABLET BY MOUTH IN THE MORNING, AND 2 TABLETS AT NIGHT methylprednisolone 4 mg tablets,dose pack See Rx Instructions .ROUTE .COMPLEX Qty: 21 0RF Rx Instructions: orally per package directions Discharge Orders: Discharge ED (Routine); Ordered 01/04/22 Ordered By: Dakota Marcano Referrals: Yosvany Estrella [Primary Care Provider] - Discharge Diet: Usual diet Discharge Activity: Increase activity as tolerated Patient Instructions: Acute Bronchitis (ED), COPD (Chronic Obstructive Pulmonary Disease) (ED), Opioid Safety, Pain Management Activity Restrictions/Additional Instructions: Please use your inhaler every 4-6 hours while you are awake. Follow-up with your primary care provider on Wednesday for recheck of your symptoms Coding Level of Care Code ED Sanitary Chemist for Chg Fwd Exam Comprehensive
--- NOTE | 2022-01-04 09:29 | XRR_ITS ---
PROCEDURE INFORMATION: Exam: XR Chest Exam date and time: 01/04/2022 11:03 AM Age: 76 years old Clinical indication: Shortness of breath; Additional info: SOB TECHNIQUE: Imaging protocol: Radiologic exam of the chest. Views: 2 views. COMPARISON: CR XR chest 1V portable [id number] 12/31/2021 9:09 AM FINDINGS: Tubes, catheters and devices: A left central line extends into the right atrium. Lungs: Unremarkable. No consolidation. Pleural spaces: Unremarkable. No pleural effusion. No pneumothorax. Heart/Mediastinum: Unremarkable. No cardiomegaly. Bones/joints: Unremarkable. XR/XR chest 2V* [id number] IMPRESSION: 1. No acute findings. 2. Left central line extends to the right atrium
[2022-01-04 09:37] LABS: Basophils % 0.2 %; Eosinophils # 0.1 10^3/uL (0.0-0.8); Eosinophils % 0.6 %; Hematocrit 46.1 % (42.0-52.0); Lymphocytes # 2.9 10^3/uL (0.8-4.8); Lymphocytes % 20.9 %; Mean Corpuscular HGB Conc 32.5 g/dL (30.0-36.0); Mean Corpuscular Hemoglobin 32.7 pg (28.0-34.0); Mean Corpuscular Volume 100.4 fl (80-94); Mean Platelet Volume 9.4 fL (7.4-10.4); Monocytes # 1.1 10^3/uL (0.2-0.9); Monocytes % 8.3 %; Neutrophils # 9.52 10^3/uL (1.8-7.7); Neutrophils % 69.6 %; Nucleated Red Blood Cells % 0 %; Platelet Count 288 10^3/cmm (130-400); Red Blood Count 4.59 10^6/uL (4.1-5.3); Red Cell Distribution Width 13.5 % (12.1-15.1); White Blood Count 13.7 10^3/uL (4.0-10.0)
[2022-01-04 09:52] LABS: Alanine Aminotransferase 13 U/L (0-41); Albumin Level 3.9 g/dL (3.5-5.2); Alkaline Phosphatase 110 U/L (40-130); Anion Gap 14.9 (5-19); Aspartate Amino Transferase 10 U/L (0-40); Blood Urea Nitrogen 19 mg/dL (8-23); C Reactive Protein 26.5 mg/L (0.0-4.9); Calcium 9.4 mg/dL (8.5-10.5); Carbon Dioxide 27 mmol/L (22-29); Chloride 100 mmol/L (98-107); Creatinine Clr Calc Pharmacy 65.2463; Globulin 3.5 g/dL (1.3-4.6); Glucose 108 mg/dL (65-115); Osmolality Calculated 289 mOsm/kg (285-295); Potassium 3.9 mmol/L (3.5-5.1); Sodium 138 mmol/L (136-145); Total Bilirubin 0.4 mg/dL (0.15-1.2); Total Protein 7.4 g/dL (6.6-8.7)
--- NOTE | 2022-01-04 09:57 | ECG_ITS ---
[facility] Test Date: 2022-01-04 Pat Name: Maxwell Grimes Department: Room: Gender: Male Control Clerk Subassembly: : 1945 Requested By: Dakota Marcano Order Number: [id number] Echo MD: Palmira Alonso M.D. Measurements Intervals [place] Rate: 93 P: 72 OK: 151 QRS: 1 QRSD: 88 T: 78 QT: 346 QTc: 431 Interpretive Statements SINUS RHYTHM Compared to ECG 12/31/2021 09:28:24 Sinus tachycardia no longer present Electronically Signed On 01-04-2022 15:58:48 CRITICAL CARE UNIT MANAGER by Palmira Alonso M.D. [id number]
[2022-01-04 10:25] LABS: Troponin(5th) Baseline 21 ng/L (0-15)
[2022-01-04] MEDS: ipratropium-albuterol 3 mL Neb INHALATION (12:00)
--- NOTE | 2022-01-04 12:05 | ECG_ITS ---
[facility] Test Date: 2022-01-04 Pat Name: Maxwell Grimes Department: Room: Gender: Male Lawyer: : 1945 Requested By: Dakota Marcano Order Number: [id number] Echo MD: Palmira Alonso M.D. Measurements Intervals [place] Rate: 95 P: 68 GA: 146 QRS: -11 QRSD: 90 T: 79 QT: 350 QTc: 441 Interpretive Statements SINUS RHYTHM Compared to ECG 01/04/2022 10:03:55 No significant changes Electronically Signed On 01-04-2022 16:07:32 ELECTRICAL PLUMBING SUPERVISOR by Palmira Alonso M.D. [id number]
[2022-01-04 12:12] VITALS: PULSE 92; RESP 20; O2SAT 94
[2022-01-04 12:15] VITALS: BP 143/90; PULSE 91; O2SAT 95
[2022-01-04 12:19] VITALS: PULSE 94
[2022-01-04 13:15] VITALS: BP 146/93; PULSE 100; O2SAT 94
[2022-01-04 14:24] VITALS: BP 127/80; PULSE 90; RESP 20; O2SAT 93
== END 2022-01-04 14:20 | disposition home or self-care (01) ==
PROVIDERS: Emergency Provider Student in an Organized Health Care Education/Training Program; PCP Family Medicine
DX: J40 Bronchitis, not specified as acute or chronic (principal); Z87.891 Personal history of nicotine dependence; Z79.02 Long term (current) use of antithrombotics/antiplatelets; Z79.51 Long term (current) use of inhaled steroids; Z79.891 Long term (current) use of opiate analgesic
CPT/HCPCS: 71046; 80053; 84484; 85025; 86140; 93005; 94640; 99285

== ENCOUNTER 2022-01-08 15:08 | Emergency (ER) | payer MEDICARE, OTHER, SELFPAY ==
[2022-01-08 15:10] VITALS: BP 124/74; PULSE 101; RESP 18; TEMP 37.1; O2SAT 93; BMI 29.9
--- NOTE | 2022-01-08 15:31 | XRR_ITS ---
PROCEDURE INFORMATION: Exam: XR Chest Exam date and time: 01/08/2022 4:45 PM Age: 76 years old Clinical indication: Cough and shortness of breath TECHNIQUE: Imaging protocol: Radiologic exam of the chest. Views: 1 view. COMPARISON: CR (CHEST, ) 01/04/2022 11:03 AM FINDINGS: Tubes, catheters and devices: Left central line extends into the right atrium. Lungs: Unremarkable. No consolidation. Pleural spaces: Unremarkable. No pleural effusion. No pneumothorax. Heart/Mediastinum: Unremarkable. No cardiomegaly. Bones/joints: Unremarkable. Other findings: Similar findings seen comparing to prior examination XR/XR chest 1V portable [id number] IMPRESSION: 1. No acute findings. 2. Left central line is in the right atrium
--- NOTE | 2022-01-08 15:33 | W.ED.SOB ---
HPI - SOB/Dyspnea General: Chief Complaint: Shortness of Breath/Dyspnea Stated Complaint: SOB Time Seen by Provider: 01/08/22 15:27 History of Present Illness: HPI Narrative: 76-year-old male presents with cough. Patient was seen in the ER on 12/31/2021 and diagnosed with COPD with bronchitis and started on steroids and azithromycin. Patient was seen again on 01/04/2022 with a negative evaluation. Patient returns today because he continues to have a cough. states that the cough getting worse patient is normally on 2 L home oxygen and has not had any increased oxygen need. Patient reports that he had a coughing episode and had difficulty catching his breath. Patient denies any chest pain, nausea, vomiting or other systemic complaints. 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 Surgical History History of urostomy Social History Smoking and tobacco status: former smoker Physical Exam Const: COMMON NORMALS: no acute distress, patient oriented x3 and alert GENERAL APPEARANCE: frail appearing HENMT: COMMON NORMALS: normocephalic and hearing grossly normal bilaterally HEAD & SCALP: normocephalic Eye: COMMON NORMALS: EOMs intact bilaterally and conjunctivae normal CONJUNCTIVA: Yes conjunctivae normal Resp: EFFORT & INSPECTION: Yes able to speak in complete sentences, No tachypneic and No respiratory distress AUSCULTATION: diminished lung sounds diffuse (Mild) Cardio: COMMON NORMALS: regular rate and regular rhythm RATE: regular rate RHYTHM: regular rhythm GI: COMMON NORMALS: Soft to palpation and non-tender PALPATION: Yes Soft to palpation Extremity: COMMON NORMALS: full ROM and capillary refill normal Neuro: COMMON NORMALS: patient oriented x3, moves all extremities and no focal motor deficits SENSORIUM/ORIENTATION: Yes alert Psych: COMMON NORMALS: mental status grossly normal, Normal thought process present, cooperative and speech normal SPEECH: Yes normal speech THOUGHT PROCESS: Normal thought process present Skin: COMMON NORMALS: no rashes or lesions noted and turgor normal GENERAL SKIN EXAM: no rashes or lesions noted and turgor normal Course Vital Signs: Vital signs: Vital Signs Temperature 98.8 F 01/08/22 15:10 Pulse Rate 98 01/08/22 16:28 Respiratory Rate 16 01/08/22 16:28 Blood Pressure 124/74 01/08/22 15:10 Pulse Oximetry 98 01/08/22 16:28 Oxygen Delivery Me thod 01/08/22 16:28 Oxygen Flow Rate 2 01/08/22 16:28 MDM - SOB/Dyspnea Medical Decision Making Patient with still slight elevated white count but normal procalcitonin. Patient has been on some chronic steroids which could be the cause for the elevated white count. Patient's chest x-ray shows no acute findings. He is stable on his 2 L home oxygen. I think family and him are just frustrated with chronic cough. Discussed with them some home remedies to help with the cough. I will give him a prescription for Tessalon pearls along with doxycycline. Recommended they follow-up with Dr. Estrella for recheck of their symptoms. Patient stable and discharged home Lab Data : 01/08/22 15:51 01/08/22 15:51 Labs/Radiology: Radiology Impressions Chest X-Ray 01/08/22 15:31 IMPRESSION: 1. No acute findings. 2. Left central line is in the right atrium Laboratory Results WBC 13.0 10^3/uL (4.0-10.0) H 01/08/22 15:51 RBC 4.50 10^6/uL (4.1-5.3) 01/08/22 15:51 Hgb 14.7 g/dL (11.7-16.6) 01/08/22 15:51 Hct 45.0 % (42.0-52.0) 01/08/22 15:51 MCV 100.0 fl (80-94) H 01/08/22 15:51 MCH 32.7 pg (28.0-34.0) 01/08/22 15:51 MCHC 32.7 g/dL (30.0-36.0) 01/08/22 15:51 RDW 13.6 % (12.1-15.1) 01/08/22 15:51 Plt Count 261 10^3/cmm (130-400) 01/08/22 15:51 MPV 9.0 fL (7.4-10.4) 01/08/22 15:51 Neut % (Auto) 75.3 % 01/08/22 15:51 Lymph % (Auto) 12.8 % 01/08/22 15:51 [place] % (Auto) 8.5 % 01/08/22 15:51 Eos % (Auto) 2.4 % 01/08/22 15:51 Baso % (Auto) 0.2 % 01/08/22 15:51 Neut # (Auto) 9.78 10^3/uL (1.8-7.7) H 01/08/22 15:51 Lymph # (Auto) 1.7 10^3/uL (0.8-4.8) 01/08/22 15:51 [place] # (Auto) 1.1 10^3/uL (0.2-0.9) H 01/08/22 15:51 Eos # (Auto) 0.3 10^3/uL (0.0-0.8) 01/08/22 15:51 Baso # (Auto) 0.0 10^3/uL (0.0-0.1) 01/08/22 15:51 Nucleated RBC % (auto) 0 % 01/08/22 15:51 Nucleated RBCs # 0.0 /100WBC 01/08/22 15:51 Sodium 136 mmol/L (136-145) 01/08/22 15:51 Potassium 3.8 mmol/L (3.5-5.1) 01/08/22 15:51 Chloride 96 mmol/L (98-107) L 01/08/22 15:51 Carbon Dioxide 27 mmol/L (22-29) 01/08/22 15:51 Anion Gap 16.8 (5-19) 01/08/22 15:51 BUN 15 mg/dL (8-23) 01/08/22 15:51 Creatinine 0.9 mg/dL (0.7-1.2) 01/08/22 15:51 GFR Calculation Not Reportable 01/08/22 15:51 Glucose 119 mg/dL (65-115) H 01/08/22 15:51 Calculated Osmolality 284 mOsm/kg (285-295) L 01/08/22 15:51 Calcium 9.0 mg/dL (8.5-10.5) 01/08/22 15:51 Magnesium 2.3 mg/dL (1.7-2.3) 01/08/22 15:51 Total Bilirubin 0.5 mg/dL (0.15-1.2) 01/08/22 15:51 AST 14 U/L (0-40) 01/08/22 15:51 ALT 16 U/L (0-41) 01/08/22 15:51 Alkaline Phosphatase 102 U/L (40-130) 01/08/22 15:51 C-Reactive Protein 132.8 mg/L (0.0-4.9) H 01/08/22 15:51 Total Protein 6.9 g/dL (6.6-8.7) 01/08/22 15:51 Albumin 3.4 g/dL (3.5-5.2) L 01/08/22 15:51 Globulin 3.5 g/dL (1.3-4.6) 01/08/22 15:51 Procalcitonin 0.13 ng/mL (0-0.5) 01/08/22 15:51 Discharge Plan Discharge Condition: Stable Prescriptions: No Action amlodipine 5 mg tablet 5 mg PO DAILY clopidogrel 75 mg tablet 75 mg PO DAILY fluoxetine 40 mg capsule 40 mg PO DAILY simvastatin 20 mg tablet 20 mg PO DAILY trazodone 150 mg tablet 150 mg PO DAILY budesonide-formoterol [Symbicort] 160-4.5 mcg/actuation HFA aerosol inhaler 2 puff inhalation BID gabapentin 400 mg capsule 400 mg PO TID Qty: 90 5RF pramipexole 0.125 mg tablet See Rx Instructions .ROUTE .COMPLEX Qty: 90 0RF Dose Instruction: TAKE 1 TABLET BY MOUTH IN THE MORNING, AND 2 TABLETS AT NIGHT Rx Instructions: TAKE 1 TABLET BY MOUTH IN THE MORNING, AND 2 TABLETS AT NIGHT albuterol sulfate 90 mcg/actuation Hfa Aerosol Inhaler 1 puff INHALATION Q6H PRN (Reason: Shortness Of Breath Or Wheezing) cetirizine 10 mg Capsule 10 mg PO DAILY Stimulant Laxative Plus 8.6-50 mg tablet 1 tab PO DAILY Referrals: Yosvany Estrella [Primary Care Provider] - Coding Level of Care Code ED Computer Aided Drafter for Chg Fwd Exam Comprehensive
[2022-01-08 15:58] LABS: Basophils % 0.2 %; Eosinophils # 0.3 10^3/uL (0.0-0.8); Eosinophils % 2.4 %; Hemoglobin 14.7 g/dL (11.7-16.6); Lymphocytes # 1.7 10^3/uL (0.8-4.8); Lymphocytes % 12.8 %; Mean Corpuscular HGB Conc 32.7 g/dL (30.0-36.0); Mean Corpuscular Hemoglobin 32.7 pg (28.0-34.0); Monocytes # 1.1 10^3/uL (0.2-0.9); Monocytes % 8.5 %; Neutrophils # 9.78 10^3/uL (1.8-7.7); Neutrophils % 75.3 %; Nucleated Red Blood Cells % 0 %; Platelet Count 261 10^3/cmm (130-400); Red Cell Distribution Width 13.6 % (12.1-15.1)
[2022-01-08 16:28] VITALS: PULSE 98; RESP 16; O2SAT 98
[2022-01-08] MEDS: ipratropium-albuterol 3 mL Neb INHALATION ×2 (16:28→17:43)
[2022-01-08 16:42] LABS: Procalcitonin 0.13 ng/mL (0-0.5)
[2022-01-08 17:14] LABS: Alanine Aminotransferase 16 U/L (0-41); Albumin Level 3.4 g/dL (3.5-5.2); Alkaline Phosphatase 102 U/L (40-130); Anion Gap 16.8 (5-19); Aspartate Amino Transferase 14 U/L (0-40); Blood Urea Nitrogen 15 mg/dL (8-23); C Reactive Protein 132.8 mg/L (0.0-4.9); Carbon Dioxide 27 mmol/L (22-29); Chloride 96 mmol/L (98-107); Globulin 3.5 g/dL (1.3-4.6); Glucose 119 mg/dL (65-115); Magnesium 2.3 mg/dL (1.7-2.3); Osmolality Calculated 284 mOsm/kg (285-295); Potassium 3.8 mmol/L (3.5-5.1); Sodium 136 mmol/L (136-145); Total Bilirubin 0.5 mg/dL (0.15-1.2); Total Protein 6.9 g/dL (6.6-8.7)
[2022-01-08 17:40] VITALS: PULSE 99; RESP 16; O2SAT 96
[2022-01-08 17:45] VITALS: PULSE 105
[2022-01-08] MEDS: dexamethasone 10 mg/mL INJ 6 MG IVP (17:49)
[2022-01-08] MEDS: famotidine 20 mg/2 mL INJ 40 MG IVP (17:50)
[2022-01-08] MEDS: benzonatate 100 mg Capsule PO (17:54)
[2022-01-08 19:06] LABS: Adenovirus Not Detected (NOT DETECT); Chlamydia Pneumoniae Not Detected (NOT DETECT); Coronavirus 229E,HKU1,NL63,OC4 Not Detected (NOT DETECT); Human Metapneumovirus Not Detected (NOT DETECT); Human Rhinovirus/Enterovirus Not Detected (NOT DETECT); Influenza A Not Detected (NOT DETECT); Influenza A H1 Not Detected (NOT DETECT); Influenza A H1-2009 Not Detected (NOT DETECT); Influenza A H3 Not Detected (NOT DETECT); Influenza B Not Detected (NOT DETECT); Mycoplasma Pneumoniae Not Detected (NOT DETECT); Parainfluenza Virus Type 1 Not Detected (NOT DETECT); Parainfluenza Virus Type 2 Not Detected (NOT DETECT); Parainfluenza Virus Type 3 Not Detected (NOT DETECT); Parainfluenza Virus Type 4 Not Detected (NOT DETECT); Respiratory Syncytial Virus A Not Detected (NOT DETECT); Respiratory Syncytial Virus B Not Detected (NOT DETECT); SARS-COV-2 Not Detected (NOT DETECT)
[2022-01-08 20:31] VITALS: PULSE 100; RESP 24; O2SAT 94
== END 2022-01-08 20:30 | disposition home or self-care (01) ==
PROVIDERS: Emergency Provider Student in an Organized Health Care Education/Training Program; PCP Family Medicine
DX: R05.9 Cough, unspecified (principal); R06.02 Shortness of breath; Z79.02 Long term (current) use of antithrombotics/antiplatelets; Z87.891 Personal history of nicotine dependence; I69.359 Hemiplegia and hemiparesis following cerebral infarction affecting unspecified side; Z99.81 Dependence on supplemental oxygen
CPT/HCPCS: 71045; 80053; 83735; 84145; 85025; 86140; 87486; 87581; 87633; 94640; 96374; 96375; 99284; J1100; J3490

== ENCOUNTER 2022-04-20 13:11 | Outpatient (CLI) | payer MEDICARE, OTHER, SELFPAY ==
--- NOTE | 2022-04-20 | USCV_ITS ---
Maxwell Grimes Age: 76 Gender: M : 1945 Exam Date: 04/20/2022 14:06 Ordering Phys: Blanca Cummings Technologist: Exam Location[place] [facility] [place]: hx of cva BP: 134 / 80 HR: 84 Rhythm: Sinus Technical Quality: Very technically difficult study MEASUREMENTS (Male / Female) Normal Values 2D ECHO LV Ejection Fraction MOD 2C 68.6 % LV Ejection Fraction 2C AL 69.0 % IVC Diameter 1.6 cm DOPPLER AV Peak Velocity 124.0 cm/s LVOT Peak Velocity 84.0 cm/s MV Area PHT 5.0 cm squared Mitral E to A Ratio 0.6 MV E' Velocity 32.0 cm/s Mitral E to MV E' Ratio 11.0 Mitral E to LV E' Lateral Ratio 8.3 Mitral E to LV E' Septal Ratio 16.8 FINDINGS Left Ventricle Normal left ventricular size and systolic function, EF 73 %. Grade I/IV diastolic dysfunction (abnormal relaxation filling pattern), normal to mildly elevated filling pressures. Right Ventricle The right ventricle is normal in size and function. Right Atrium Right atrium not well visualized. Left Atrium Normal left atrial size. Mitral Valve Thickened mitral valve. Aortic Valve No gross abnormalities noted Tricuspid Valve Tricuspid valve not well visualized. Pulmonic Valve Pulmonic valve not well visualized. Pericardium Normal pericardium without effusion. Aorta Normal ascending aorta dimension. IVC The inferior vena cava appears normal. CONCLUSIONS Normal left ventricular size and systolic function, EF 73 %. Grade I/IV diastolic dysfunction (abnormal relaxation filling pattern), normal to mildly elevated filling pressures. Thickened mitral valve. Possibly normal chamber size There is no pericardial effusion. There are no intracardiac masses. Comparison with the previous study is difficult because of the difference in the technical quality. Dr Keon Cuevas MD [facility] (Electronically Signed) Final Date: 20 April 2022 18:41 S
== END 2022-04-20 13:12 | disposition home or self-care (01) ==
LOC: RAD 13:11
PROVIDERS: PCP Family Medicine; Visit Provider Nurse Practitioner Family
DX: R60.1 Generalized edema (principal); I05.9 Rheumatic mitral valve disease, unspecified
CPT/HCPCS: 93306

== ENCOUNTER 2022-11-21 15:25 | Emergency (ER) | payer MEDICARE, OTHER, SELFPAY ==
[2022-11-21 15:32] VITALS: BP 119/77; PULSE 97; RESP 18; TEMP 37.4; O2SAT 93; BMI 31.6
--- NOTE | 2022-11-21 15:50 | W.ED.WEAKNES ---
HPI - Weakness General: Chief complaint: Weakness Stated complaint: WEAKNESS; FEVER Time Seen by Provider: 11/21/22 15:34 History of Present Illness: Patient presents to the ER by EMS with complaints of being more weak than normal. Patient was at home today and could not stand to get up out of his wheelchair to use the restroom. Patient stood up and family had to let him down gently to the floor. Patient does have a catheter urinary in place that he wears. Patient wears 2 L of oxygen at nasal cannula at all times. Patient just finished an antibiotic approximately 2 weeks ago for UTI. 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 Surgical History History of urostomy Social History Smoking and tobacco status: former smoker Physical Exam Const: COMMON NORMALS: no acute distress, average body habitus, patient oriented x3, no limitations, healthy appearing, alert and well nourished HENMT: COMMON NORMALS: normocephalic, atraumatic, hearing grossly normal bilaterally, external ears normal, Normal external nose present and moist oral mucous membranes HEAD & SCALP: normocephalic and atraumatic NOSE: Normal external nose present EXTERNAL EAR: Yes external ears normal Neck/C-Spine: COMMON NORMALS: no JVD Chest: COMMONS NORMALS: normal inspection of the chest and normal palpation of entire chest wall Resp: COMMON NORMALS: normal respiratory effort, No retractions, No use of accessory muscles and clear to auscultation bilaterally AUSCULTATION: clear to auscultation bilaterally Cardio: COMMON NORMALS: no JVD, regular rate, regular rhythm, S1 normal heart sound present, S2 normal heart sound present, No gallops present (Cardio), No clicks present (Cardio), No murmurs present (Cardio) and No rub (Cardio) RATE: regular rate RHYTHM: regular rhythm HEART SOUNDS: S1 normal heart sound present and S2 normal heart sound present GI: COMMON NORMALS: Normal to inspection, nondistended, normoactive bowel sounds present, Soft to palpation, non-tender, No hepatosplenomegaly present and no masses PALPATION: Yes Soft to palpation and Yes No hepatosplenomegaly present Neuro: COMMON NORMALS: patient oriented x3 SENSORIUM/ORIENTATION: Yes alert Course Vital Signs: Vital signs: Vital Signs Temperature 99.4 F 11/21/22 15:32 Pulse Rate 97 11/21/22 15:32 Respiratory Rate 18 11/21/22 15:32 Blood Pressure 119/77 11/21/22 15:32 Pulse Oximetry 93 11/21/22 15:32 Oxygen Delivery Me thod Nasal Cannula 11/21/22 15:32 Oxygen Flow Rate 2 11/21/22 15:32 MDM - Weakness Medical Decision Making Patient presents to the ER with complaints of weakness. Patient does have a history of urinary tract infections lab work was obtained as well as a urine which showed urinary tract infection. Patient is allergic to multiple antibiotics but can take ciprofloxacin. Patient will be discharged on ciprofloxacin for urinary tract infection. Differential Diagnosis Unlikely acute myocardial infarction, anemia, hypoglycemia, hypothyroidism, rhabdomyolysis, sepsis or dehydration Medical Records I reviewed the patient's medical records. Lab Data I reviewed the patient's lab results. 11/21/22 16:00 11/21/22 16:00 Laboratory Results WBC 9.80 10^3/uL (3.29-11.43) 11/21/22 16:00 RBC 4.40 10^6/uL (3.85-5.65) 11/21/22 16:00 Hgb 14.10 g/dL (11.27-16.99) 11/21/22 16:00 Hct 43.2 % (37-53) 11/21/22 16:00 MCV 98.2 fl (82-101) 11/21/22 16:00 MCH 32.0 pg (27-33) 11/21/22 16:00 MCHC 32.6 g/dL (30-55) 11/21/22 16:00 RDW 13.8 % (12.1-15.1) 11/21/22 16:00 Plt Count 255 10^3/cmm (157-399) 11/21/22 16:00 MPV 9.3 fL (7.4-10.4) 11/21/22 16:00 Neut % (Auto) 77.2 % 11/21/22 16:00 Lymph % (Auto) 10.5 % 11/21/22 16:00 [place] % (Auto) 9.8 % 11/21/22 16:00 Eos % (Auto) 1.8 % 11/21/22 16:00 Baso % (Auto) 0.3 % 11/21/22 16:00 Neut # (Auto) 7.56 10^3/uL (1.8-7.7) 11/21/22 16:00 Lymph # (Auto) 1.0 10^3/uL (0.8-4.8) 11/21/22 16:00 [place] # (Auto) 1.0 10^3/uL (0.2-0.9) H 11/21/22 16:00 Eos # (Auto) 0.2 10^3/uL (0.0-0.8) 11/21/22 16:00 Baso # (Auto) 0.0 10^3/uL (0.0-0.1) 11/21/22 16:00 Nucleated RBC % (auto) 0 % 11/21/22 16:00 Nucleated RBCs # 0.0 /100WBC 11/21/22 16:00 Sodium 134 mmol/L (136-145) L 11/21/22 16:00 Potassium 3.8 mmol/L (3.5-5.1) 11/21/22 16:00 Chloride 96 mmol/L (98-107) L 11/21/22 16:00 Carbon Dioxide 28 mmol/L (22-29) 11/21/22 16:00 Anion Gap 13.8 (5-19) 11/21/22 16:00 BUN 19 mg/dL (8-23) 11/21/22 16:00 Creatinine 1.3 mg/dL (0.7-1.2) H 11/21/22 16:00 GFR Calculation Not Reportable 11/21/22 16:00 Glucose 120 mg/dL (65-115) H 11/21/22 16:00 Calculated Osmolality 281 mOsm/kg (285-295) L 11/21/22 16:00 Calcium 9.1 mg/dL (8.5-10.5) 11/21/22 16:00 Total Bilirubin 0.6 mg/dL (0.15-1.2) 11/21/22 16:00 AST 16 U/L (0-40) 11/21/22 16:00 ALT 17 U/L (0-41) 11/21/22 16:00 Alkaline Phosphatase 120 U/L (40-130) 11/21/22 16:00 Total Protein 7.6 g/dL (6.6-8.7) 11/21/22 16:00 Albumin 3.8 g/dL (3.5-5.2) 11/21/22 16:00 Globulin 3.8 g/dL (1.3-4.6) 11/21/22 16:00 Urine Color Yellow (Yellow) 11/21/22 18:15 Urine Appearance Hazy (CLEAR) A 11/21/22 18:15 Urine pH 7 (5-7) 11/21/22 18:15 Ur Specific [place] 1.005 (1.005-1.030) 11/21/22 18:15 Urine Protein 1+ (Negative) H 11/21/22 18:15 Urine Glucose (UA) Norm (Normal) 11/21/22 18:15 Urine Ketones 1+ (Negative) H 11/21/22 18:15 Urine Blood 3+ (Negative) H 11/21/22 18:15 Urine Nitrate Negative (Negative) 11/21/22 18:15 Urine Bilirubin Neg (Negative) 11/21/22 18:15 Urine Urobilinogen Norm mg/dL (Negative) 11/21/22 18:15 Ur Leukocyte Esterase 2+ (Negative) H 11/21/22 18:15 Urine RBC 40-50 /hpf (0-2) H 11/21/22 18:15 Urine WBC >100 /hpf (0-5) H 11/21/22 18:15 Ur Squamous Epith Cells None /hpf (0-5) 11/21/22 18:15 Amorphous Sediment Not Reportable 11/21/22 18:15 Urine Bacteria 4+ /hpf (NONE) H 11/21/22 18:15 Urine Mucus 1+ /hpf 11/21/22 18:15 All radiology interpretation(s) finalized by discharge Discharge Plan Discharge Patient Disposition: Home Clinical Impression: Generalized muscle weakness UTI (urinary tract infection) Qualifiers: Urinary tract infection type: acute cystitis Hematuria presence: with hematuria Qualified Code(s): N30.01 - Acute cystitis with hematuria Condition: Stable Prescriptions: New ciprofloxacin HCl 500 mg tablet 500 mg PO Q12H Qty: 20 0RF No Action amlodipine 5 mg tablet 5 mg PO DAILY clopidogrel 75 mg tablet 75 mg PO DAILY fluoxetine 40 mg capsule 40 mg PO DAILY simvastatin 20 mg tablet 20 mg PO DAILY trazodone 150 mg tablet 150 mg PO DAILY budesonide-formoterol [Symbicort] 160-4.5 mcg/actuation HFA aerosol inhaler 2 puff inhalation BID gabapentin 400 mg capsule 400 mg PO TID Qty: 90 5RF pramipexole 0.125 mg tablet See Rx Instructions .ROUTE .COMPLEX Qty: 90 11RF Dose Instruction: TAKE 1 TABLET BY MOUTH IN THE MORNING, AND 2 TABLETS AT NIGHT Rx Instructions: TAKE 1 TABLET BY MOUTH IN THE MORNING, AND 2 TABLETS AT NIGHT albuterol sulfate 90 mcg/actuation Hfa Aerosol Inhaler 1 puff INHALATION Q6H PRN (Reason: Shortness Of Breath Or Wheezing) cetirizine 10 mg Capsule 10 mg PO DAILY Stimulant Laxative Plus 8.6-50 mg tablet 1 tab PO DAILY benzonatate 100 mg capsule 100 mg PO Q6H PRN (Reason: cough) Qty: 20 0RF Discharge Orders: Discharge ED (Routine); Ordered 11/21/22 Ordered By: Lauro Cote Referrals: Yosvany Estrella [Primary Care Provider] - 1 week Patient Instructions: Urinary Tract Infection - Men, Weakness (Generalized) Activity Restrictions/Additional Instructions: Please take all your antibiotics as directed. Please follow-up with your family practice doctor within the next 7 days for further evaluation and treatment. Coding Level of Care Code ED Catering Service Manager for Brandan Greenwood
[2022-11-21 16:29] LABS: Basophils % 0.3 %; Eosinophils # 0.2 10^3/uL (0.0-0.8); Eosinophils % 1.8 %; Hematocrit 43.2 % (37-53); Lymphocytes % 10.5 %; Mean Corpuscular HGB Conc 32.6 g/dL (30-55); Mean Corpuscular Volume 98.2 fl (82-101); Mean Platelet Volume 9.3 fL (7.4-10.4); Monocytes % 9.8 %; Neutrophils # 7.56 10^3/uL (1.8-7.7); Neutrophils % 77.2 %; Nucleated Red Blood Cells % 0 %; Platelet Count 255 10^3/cmm (157-399); Red Cell Distribution Width 13.8 % (12.1-15.1)
[2022-11-21 16:56] LABS: Alanine Aminotransferase 17 U/L (0-41); Albumin Level 3.8 g/dL (3.5-5.2); Alkaline Phosphatase 120 U/L (40-130); Anion Gap 13.8 (5-19); Aspartate Amino Transferase 16 U/L (0-40); Blood Urea Nitrogen 19 mg/dL (8-23); Calcium 9.1 mg/dL (8.5-10.5); Carbon Dioxide 28 mmol/L (22-29); Chloride 96 mmol/L (98-107); Globulin 3.8 g/dL (1.3-4.6); Glucose 120 mg/dL (65-115); Osmolality Calculated 281 mOsm/kg (285-295); Potassium 3.8 mmol/L (3.5-5.1); Sodium 134 mmol/L (136-145); Total Bilirubin 0.6 mg/dL (0.15-1.2); Total Protein 7.6 g/dL (6.6-8.7)
[2022-11-21 18:35] LABS: Bilirubin Urine Neg (Negative); Blood Urine 3+ (Negative); Glucose Urine UA Norm (Normal); Ketones Urine 1+ (Negative); Leukocyte Esterase Urine 2+ (Negative); Nitrate Urine Negative (Negative); Protein Urine 1+ (Negative); Specific Gravity, Urine 1.005 (1.005-1.030); Urine Appearance Hazy (CLEAR); Urine Color Yellow (Yellow); Urobilinogen Urine Norm (Negative); pH Urine 7 (5-7)
[2022-11-21 18:36] LABS: Add Urine Microscopic? YES
[2022-11-21 18:38] LABS: Bacteria Urine 4+ /hpf; Mucus Urine 1+ /hpf; RBC Urine 40-50 /hpf (0-2); WBC Urine >100 /hpf (0-5)
[2022-11-21 18:39] LABS: Add Urine Culture? Yes
== END 2022-11-21 19:58 | disposition home or self-care (01) ==
PROVIDERS: Emergency Provider Emergency Medicine; PCP Family Medicine
DX: R53.1 Weakness (principal); N30.01 Acute cystitis with hematuria; Z79.02 Long term (current) use of antithrombotics/antiplatelets; Z87.891 Personal history of nicotine dependence; I69.359 Hemiplegia and hemiparesis following cerebral infarction affecting unspecified side
CPT/HCPCS: 80053; 81001; 85025; 87086; 99283

== ENCOUNTER 2023-02-22 08:19 | Emergency (ER) | payer MEDICARE, OTHER, SELFPAY ==
[2023-02-22] VITALS (14 sets, daily range): BP systolic 121–150; BP diastolic 70–97; PULSE 90–102; RESP 16–18; TEMP 37.3; O2SAT 90–98; BMI 28.3
--- NOTE | 2023-02-22 08:25 | XRR_ITS ---
PROCEDURE INFORMATION: Exam: XR Chest Exam date and time: 02/22/2023 8:42 AM Age: 77 years old Clinical indication: Cough and dyspnea; Additional info: Dyspnea/cough TECHNIQUE: Imaging protocol: Radiologic exam of the chest. Views: 1 view. COMPARISON: 1. CR XR chest 1V portable [id number] 01/08/2022 4:45 PM 2. CR (CHEST, ) 01/04/2022 11:03 AM 3. CR XR chest 1V portable [id number] 12/31/2021 9:09 AM FINDINGS: Tubes, catheters and devices: Stable left chest port terminates at the right atrium. Lungs: Mild bibasilar linear atelectasis versus scarring. Similar mild bilateral peripheral mid lung zone linear densities also compatible with scarring. No consolidation. Pleural spaces: Unremarkable. No pleural effusion. No pneumothorax. Heart/Mediastinum: Unremarkable. No cardiomegaly. Vasculature: Aortic atherosclerotic calcification. Bones/joints: Mild degenerative changes along the spine and shoulders. XR/XR chest 1V portable [id number] IMPRESSION: No acute findings.
--- NOTE | 2023-02-22 08:26 | ED_ITS ---
HPI - Nausea/Vomiting/Diarrhea 2 General: Chief complaint: Nausea/Vomiting/Diarrhea Stated complaint: nausea and vomiting x 1 week Time Seen by Provider: 02/22/23 08:22 Source: patient Mode of arrival: ambulatory History of Present Illness: 77-year-old male presents emerged compla int nausea vomiting x 1 week. Denies hematochezia melena hematemesis or coffee-ground emesis. Patient has a history of bladder cancer previously had a cystectomy. He has a right-sided urostomy tube. He has not noticed anything that makes it better or worse he has noted significant abdominal distention. MD elicited complaint: nausea and vomiting Onset (ago): week(s) (1) Description of vomiting: watery and bilious Associated nausea: Yes Associated abdominal pain: Yes Location of pain: Diffuse Pain consistency: constant Severity: moderate Quality: cramping Exacerbating factors: eating Associated symtoms: Reports nausea; Denies altered mental status, anxiety, bloating, change in vision, chest pain, cough, diaphoresis, decreased urine output, dizziness, dysuria, epistaxis, fatigue, fecal incontinence, fevers/chills, headache(s), anorexia, malaise, myalgias, numbness, palpitations, rash, short of breath, syncope, tenesmus, tinnitus or weakness Review of Systems 2 Const: Denies: fever(s), chills, fatigue, malaise or diaphoresis Eyes: Denies: change in vision ENMT: Denies: tinnitus or epistaxis Card: Denies: chest pain, palpitations or syncope Resp: Denies: dyspnea GI: Reports: abdominal pain, nausea and vomiting; Denies: hematemesis, coffee ground emesis, bloating, fecal incontinence, hematochezia or melena : Denies: dysuria, urinary frequency or urinary urgency Musc: Denies: neck pain or back pain Skin/Breast: Denies: rash Neuro: Denies: headache(s) or dizziness Psych: Denies: anxiety PFSH ED 2 PFSH: Medical History 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 Surgical History History of urostomy Social History Smoking and tobacco/nicotine status: former use of tobacco/nicotine Physical Exam 2 Const: EXAM LIMITATIONS: no altered mental status GENERAL APPEARANCE: c ooperative and comfortable ORIENTATION/CONSCIOUSNESS: Yes awake, Yes oriented to person, Yes oriented to place and Yes oriented to time HENMT: COMMON NORMALS: normocephalic, atraumatic and hearing grossly normal bilaterally HEAD & SCALP: normocephalic and atraumatic Resp: COMMON NORMALS: normal respiratory effort, No retractions, No use of accessory muscles and clear to auscultation bilaterally AUSCULTATION: clear to auscultation bilaterally Cardio: COMMON NORMALS: regular rate, regular rhythm and No murmurs present (Cardio) RATE: regular rate RHYTHM: regular rhythm GI: COMMON NORMALS: No hepatosplenomegaly present AUSCULTATION: Yes Hypoactive bowel sounds present PALPATION: Yes Tenderness to palpation present (GI) (Diffuse), No Guarding due to palpation present (GI) and Yes No hepatosplenomegaly present PERCUSSION: tympanic to percussion Extremity: COMMON NORMALS: normal to inspection, capillary refill normal, no clubbing, cyanosis or edema, no calf tenderness and no pedal edema Neuro: SENSORIUM/ORIENTATION: Yes oriented to person, Yes oriented to place and Yes oriented to time Skin: COMMON NORMALS: no rashes or lesions noted GENERAL SKIN EXAM: no rashes or lesions noted Course 2 Vital Signs: Vital signs: Vital Signs Temperature 99.1 F 02/22/23 08:21 Pulse Rate 97 02/22/23 13:02 Respiratory Rate 16 02/22/23 13:02 Blood Pressure 124/70 02/22/23 13:02 Pulse Oximetry 93 02/22/23 13:02 Oxygen Delivery Me thod Nasal Cannula 02/22/23 09:30 Oxygen Flow Rate 2 02/22/23 09:30 MDM - Nausea/Vomiting/Diarrhea Medical Decision Making Partial small bowel obstruction on CT after placement of NG patient did feel somewhat better. General surgery consulted recommends transfer. See his consultation note transfer to Dr. Veliz is receiving physician transferred by ground ambulance Medical Records I reviewed the patient's medical records. Lab Data I reviewed the patient's lab results. 02/22/23 08:24 02/22/23 08:24 Radiology Impressions Abdomen/Pelvis CT 02/22/23 08:47 IMPRESSION: 1. Dilated fluid-filled proximal small bowel with gradual distal tapering but no abrupt transition point may represent ileus or partial obstruction. 2. Stable extensive postsurgical/postprocedural changes involving the genitourinary system and bowel. 3. Small focus of right renal caliceal air may be related to percutaneous nephrostomy tube. Correlate for evidence of infection. 4. Additional chronic and incidental findings as above, to include punctate nonobstructive left nephrolith and cholelithiasis. Chest X-Ray 02/22/23 10:51 IMPRESSION: Interval NG tube terminates at the stomach. Laboratory Results WBC 14.32 10^3/uL (3.29-11.43) H 02/22/23 08:24 RBC 4.95 10^6/uL (3.85-5.65) 02/22/23 08:24 Hgb 15.90 g/dL (11.27-16.99) 02/22/23 08:24 Hct 47.8 % (37-53) 02/22/23 08:24 MCV 96.6 fl (82-101) 02/22/23 08:24 MCH 32.1 pg (27-33) 02/22/23 08:24 MCHC 33.3 g/dL (30-55) 02/22/23 08:24 RDW 15.2 % (12.1-15.1) H 02/22/23 08:24 Plt Count 272 10^3/cmm (157-399) 02/22/23 08:24 MPV 9.4 fL (7.4-10.4) 02/22/23 08:24 Neut % (Auto) 76.0 % 02/22/23 08:24 Lymph % (Auto) 14.9 % 02/22/23 08:24 [place] % (Auto) 7.9 % 02/22/23 08:24 Eos % (Auto) 0.8 % 02/22/23 08:24 Baso % (Auto) 0.1 % 02/22/23 08:24 Neut # (Auto) 10.89 10^3/uL (1.8-7.7) H 02/22/23 08:24 Lymph # (Auto) 2.1 10^3/uL (0.8-4.8) 02/22/23 08:24 [place] # (Auto) 1.1 10^3/uL (0.2-0.9) H 02/22/23 08:24 Eos # (Auto) 0.1 10^3/uL (0.0-0.8) 02/22/23 08:24 Baso # (Auto) 0.0 10^3/uL (0.0-0.1) 02/22/23 08:24 Nucleated RBC % (auto) 0 % 02/22/23 08:24 Nucleated RBCs # 0.0 /100WBC 02/22/23 08:24 Sodium 142 mmol/L (136-145) 02/22/23 08:24 Potassium 4.1 mmol/L (3.5-5.1) 02/22/23 08:24 Chloride 100 mmol/L (98-107) 02/22/23 08:24 Carbon Dioxide 30 mmol/L (22-29) H 02/22/23 08:24 Anion Gap 16.1 (5-19) 02/22/23 08:24 BUN 20 mg/dL (8-23) 02/22/23 08:24 Creatinine 1.4 mg/dL (0.7-1.2) H 02/22/23 08:24 GFR Calculation Not Reportable 02/22/23 08:24 Glucose 122 mg/dL (65-115) H 02/22/23 08:24 Calculated Osmolality 298 mOsm/kg (285-295) H 02/22/23 08:24 Calcium 9.6 mg/dL (8.5-10.5) 02/22/23 08:24 Total Bilirubin 0.4 mg/dL (0.15-1.2) 02/22/23 08:24 AST 26 U/L (0-40) 02/22/23 08:24 ALT 28 U/L (0-41) 02/22/23 08:24 Alkaline Phosphatase 143 U/L (40-130) H 02/22/23 08:24 Total Protein 8.0 g/dL (6.6-8.7) 02/22/23 08:24 Albumin 4.1 g/dL (3.5-5.2) 02/22/23 08:24 Globulin 3.9 g/dL (1.3-4.6) 02/22/23 08:24 Urine Color Yellow (Yellow) 02/22/23 08:46 Urine Appearance Hazy (CLEAR) A 02/22/23 08:46 Urine pH 8 (5-7) H 02/22/23 08:46 Ur Specific [place] 1.010 (1.005-1.030) 02/22/23 08:46 Urine Protein 1+ (Negative) H 02/22/23 08:46 Urine Glucose (UA) Norm (Normal) 02/22/23 08:46 Urine Ketones Negative (Negative) 02/22/23 08:46 Urine Blood 3+ (Negative) H 02/22/23 08:46 Urine Nitrate Negative (Negative) 02/22/23 08:46 Urine Bilirubin Neg (Negative) 02/22/23 08:46 Prot Sulfosalicylic Acd Positive (Negative) 02/22/23 08:46 Urine Urobilinogen Neg mg/dL (Negative) 02/22/23 08:46 Ur Leukocyte Esterase 2+ (Negative) H 02/22/23 08:46 Urine RBC 5-10 /hpf (0-2) H 02/22/23 08:46 Urine WBC 80-100 /hpf (0-5) H 02/22/23 08:46 Ur Squamous Epith Cells 0-4 /hpf (0-5) H 02/22/23 08:46 Ur Transition Epith Cell 5-10 /hpf 02/22/23 08:46 Amorphous Sediment Not Reportable 02/22/23 08:46 Urine Bacteria 1+ /hpf (NONE) H 02/22/23 08:46 Urine Yeast 2+ /hpf H 02/22/23 08:46 All radiology interpretation(s) finalized by discharge Discharge Plan Discharge Patient Disposition: Xfer Short-Term Hosp Clinical Impression: Small bowel obstruction, partial, History of ileal conduit, History of total cystectomy Condition: Stable Prescriptions: No Action amlodipine 5 mg tablet 5 mg PO DAILY clopidogrel 75 mg tablet 75 mg PO DAILY fluoxetine 40 mg capsule 40 mg PO DAILY simvastatin 20 mg tablet 20 mg PO DAILY trazodone 150 mg tablet 150 mg PO DAILY budesonide-formoterol [Symbicort] 160-4.5 mcg/actuation HFA aerosol inhaler 2 puff inhalation BID gabapentin 400 mg capsule 400 mg PO TID Qty: 90 5RF pramipexole 0.125 mg tablet See Rx Instructions .ROUTE .COMPLEX Qty: 90 11RF Dose Instruction: TAKE 1 TABLET BY MOUTH IN THE MORNING, AND 2 TABLETS AT NIGHT Rx Instructions: TAKE 1 TABLET BY MOUTH IN THE MORNING, AND 2 TABLETS AT NIGHT albuterol sulfate 90 mcg/actuation Hfa Aerosol Inhaler 1 puff INHALATION Q6H PRN (Reason: Shortness Of Breath Or Wheezing) cetirizine 10 mg Capsule 10 mg PO DAILY Stimulant Laxative Plus 8.6-50 mg tablet 1 tab PO DAILY benzonatate 100 mg capsule 100 mg PO Q6H PRN (Reason: cough) Qty: 20 0RF ciprofloxacin HCl 500 mg tablet 500 mg PO Q12H Qty: 20 0RF Referrals: Yosvany Estrella [Primary Care Provider] - Coding Level of Care Code ED Bilingual Customer Service for Brandan Greenwood
[2023-02-22] MEDS: sodium chloride 0.9% 1,000 ML 999 ML IV (08:32)
[2023-02-22 08:33] LABS: Basophils % 0.1 %; Eosinophils # 0.1 10^3/uL (0.0-0.8); Eosinophils % 0.8 %; Hematocrit 47.8 % (37-53); Lymphocytes # 2.1 10^3/uL (0.8-4.8); Lymphocytes % 14.9 %; Mean Corpuscular HGB Conc 33.3 g/dL (30-55); Mean Corpuscular Hemoglobin 32.1 pg (27-33); Mean Corpuscular Volume 96.6 fl (82-101); Mean Platelet Volume 9.4 fL (7.4-10.4); Monocytes # 1.1 10^3/uL (0.2-0.9); Monocytes % 7.9 %; Neutrophils # 10.89 10^3/uL (1.8-7.7); Nucleated Red Blood Cells % 0 %; Platelet Count 272 10^3/cmm (157-399); Red Blood Count 4.95 10^6/uL (3.85-5.65); Red Cell Distribution Width 15.2 % (12.1-15.1); White Blood Count 14.32 10^3/uL (3.29-11.43)
--- NOTE | 2023-02-22 08:47 | CTR_ITS ---
PROCEDURE INFORMATION: Exam: CT Abdomen And Pelvis Without Contrast Exam date and time: 02/22/2023 9:03 AM Age: 77 years old Clinical indication: Abdominal pain; Generalized; Prior surgery; Surgery date: 6+ months; Surgery type: Urostomy colosstomy TECHNIQUE: Imaging protocol: Computed tomography of the abdomen and pelvis without contrast. Radiation optimization: All CT scans at this facility use at least one of these dose optimization techniques: automated exposure control; mA and/or kV adjustment per patient size (includes targeted exams where dose is matched to clinical indication); or iterative reconstruction. REPORTING DATA: Count of CT and Cardiac NM exams in prior 12 months: This patient has received 0 known CTs and 0 known cardiac nuclear medicine studies in the 12 months prior to the current study. COMPARISON: CT abdomen pelvis w con* [id number] 11/25/2021 6:06 PM RADIATION DOSE METRICS: Total DLP (mGy-cm): 925.25 FINDINGS: Lungs: Mild dependent and basilar atelectasis versus scarring. Coronary arteries: Coronary artery calcification. Liver: Normal without focal lesions. Gallbladder and bile ducts: Cholelithiasis without CT findings of cholecystitis. No biliary ductal dilatation. Pancreas: Diffuse fatty infiltration of the pancreas. No ductal dilatation. Spleen: No splenomegaly. Tiny splenic calcification in keeping with sequela of old granulomatous disease. Adrenal glands: Normal. No mass. Kidneys and ureters: Atrophic kidneys. Stable right percutaneous nephrostomy tube coils in the renal pelvis and shows minimal nondependent caliceal air focus. Stable left nephroureteral stent exiting at right abdominal ostomy. Stable small left renal cyst. Punctate left renal calcification. No hydronephrosis. Mild symmetric perirenal fat stranding, stable. Stomach and bowel: Multiple fluid-filled proximal small bowel loops measuring up to 4 cm in diameter. There is gradual tapering at the right lower abdominal small bowel with subsequent relative decompression. No abrupt transition point. No small bowel fecalization. No evidence of mucosal thickening. Mild colonic stool burden. Appearance is similar to October 2021. Stable bowel postsurgical change with right abdominal anastomosis. Appendix: No evidence of appendicitis. Intraperitoneal space: No free air, free fluid, or well-organized fluid collection. Vasculature: Heavy systemic atherosclerosis without abdominal aortic aneurysm. Lymph nodes: No enlarged lymph nodes. Urinary bladder: Prior cystectomy. Reproductive: Prior prostatectomy. Bones/joints: No acute fracture. Redemonstrated partial osseous fusion of the L2-4 vertebrae. Degenerative changes along the spine and sacroiliac joints. Soft tissues: Midline anterior abdominal wall postsurgical scarring. CT/CT abdomen pelvis wo con [id number] IMPRESSION: 1. Dilated fluid-filled proximal small bowel with gradual distal tapering but no abrupt transition point may represent ileus or partial obstruction. 2. Stable extensive postsurgical/postprocedural changes involving the genitourinary system and bowel. 3. Small focus of right renal caliceal air may be related to percutaneous nephrostomy tube. Correlate for evidence of infection. 4. Additional chronic and incidental findings as above, to include punctate nonobstructive left nephrolith and cholelithiasis.
[2023-02-22 08:56] LABS: Alanine Aminotransferase 28 U/L (0-41); Albumin Level 4.1 g/dL (3.5-5.2); Alkaline Phosphatase 143 U/L (40-130); Anion Gap 16.1 (5-19); Aspartate Amino Transferase 26 U/L (0-40); Blood Urea Nitrogen 20 mg/dL (8-23); Calcium 9.6 mg/dL (8.5-10.5); Carbon Dioxide 30 mmol/L (22-29); Chloride 100 mmol/L (98-107); Globulin 3.9 g/dL (1.3-4.6); Glucose 122 mg/dL (65-115); Osmolality Calculated 298 mOsm/kg (285-295); Potassium 4.1 mmol/L (3.5-5.1); Sodium 142 mmol/L (136-145); Total Bilirubin 0.4 mg/dL (0.15-1.2)
[2023-02-22 09:15] LABS: Add Urine Microscopic? YES; Bacteria Urine 1+ /hpf; Bilirubin Urine Neg (Negative); Blood Urine 3+ (Negative); Glucose Urine UA Norm (Normal); Ketones Urine Negative (Negative); Leukocyte Esterase Urine 2+ (Negative); Nitrate Urine Negative (Negative); Protein Urine 1+ (Negative); Squamous Epithelial Cell Urine 0-4 /hpf (0-5); Sulfosalicylic Acid Urine Positive (Negative); Urine Appearance Hazy (CLEAR); Urine Color Yellow (Yellow); Urobilinogen Urine Neg (Negative); WBC Urine 80-100 /hpf (0-5); pH Urine 8 (5-7)
[2023-02-22 09:16] LABS: Add Urine Culture? Yes
[2023-02-22] MEDS: promethazine 25 mg/mL SDV 1 mL IM (09:41)
--- NOTE | 2023-02-22 10:51 | XRR_ITS ---
PROCEDURE INFORMATION: Exam: XR Chest Exam date and time: 02/22/2023 11:07 AM Age: 77 years old Clinical indication: Device placement; Ng tube; Additional info: Ng tube placement TECHNIQUE: Imaging protocol: Radiologic exam of the chest. Views: 1 view. COMPARISON: CR (CHEST, ) 02/22/2023 8:42 AM FINDINGS: Tubes, catheters and devices: Stable left chest port terminates at the right atrium. Interval NG tube terminates at the stomach with side hole projecting over the stomach. Lungs: Mild linear scarring versus atelectasis at the peripheral mid and lower lung zones. No consolidation. Pleural spaces: Unremarkable. No pleural effusion. No pneumothorax. Heart/Mediastinum: Unremarkable. No cardiomegaly. Vasculature: Aortic atherosclerotic calcification. Bones/joints: Mild degenerative changes along the spine. XR/XR chest 1V portable [id number] IMPRESSION: Interval NG tube terminates at the stomach.
--- NOTE | 2023-02-22 11:34 | P.CONIM_ITS ---
Providers/Reason For Consult 2 Consulting Physician/Specialty*: General surgery Reason for Consult*: Small bowel obstruction Primary Care Provider: Yosvany Estrella History of Present Illness History of Present Illness Maxwell Grimes is a 77 year old male with extensive surgical history including pelvic exenteration for bladder cancer, ileal conduit reconstruction, and right nephrostomy. Patient has been having subsequent episodes of a small bowel obstruction over the last 2 years, last 1 was manage an outside hospital about 4 to 5 months ago. Per patient report he has not been tolerating food since yesterday, has not have a bowel movement 2 or 3 days and since then he has not passed gas, he also complains of significant abdominal distention and pain. An NG tube placed in the emergency department had an immediate output of about 1 L of intestinal content. Medications/Allergies Home Medications Medication Instructions Recorded Confirmed Last Taken Type amlodipine 5 mg tablet 5 mg PO DAILY 09/05/21 01/08/22 01/08/22 History budesonide-formoterol HFA 160 2 puff inhalation BID 09/05/21 01/08/22 01/08/22 History mcg-4.5 mcg/actuation aerosol inhaler (Symbicort) clopidogrel 75 mg tablet 75 mg PO DAILY 09/05/21 01/08/22 01/08/22 History fluoxetine 40 mg capsule 40 mg PO DAILY 09/05/21 01/08/22 01/08/22 History simvastatin 20 mg tablet 20 mg PO DAILY 09/05/21 01/08/22 01/08/22 History trazodone 150 mg tablet 150 mg PO DAILY 09/05/21 01/08/22 01/08/22 History albuterol sulfate 90 mcg/actuation 1 puff inhalation Q6H PRN 01/08/22 01/08/22 01/08/22 History aerosol inhaler Shortness Of Breath Or Wheezing benzonatate 100 mg capsule 100 mg PO Q6H PRN cough #20 caps 01/08/22 Unknown Rx cetirizine 10 mg capsule 10 mg PO DAILY 01/08/22 01/08/22 01/08/22 History sennosides 8.6 mg-docusate sodium 1 tab PO DAILY 01/08/22 01/08/22 01/08/22 History 50 mg tablet (Stimulant Laxative Plus) gabapentin 400 mg capsule 400 mg PO TID #90 caps 02/24/22 Unknown Rx pramipexole 0.125 mg tablet See Rx Instructions .Route 07/16/22 Unknown Rx .COMPLEX #90 tabs ciprofloxacin HCl 500 mg tablet 500 mg PO Q12H #20 tabs 11/21/22 Unknown Rx Allergies Allergy/AdvReac Type Severity Reaction Status Date / Time cephalexin Allergy Unknown Unknown Verified 02/22/23 08:31 nitrofurantoin Allergy Unknown Unknown Verified 02/22/23 08:31 Penicilllin Allergy Unknown Unknown Uncoded 02/22/23 08:31 Sulfa Allergy Unknown Unknown Uncoded 02/22/23 08:31 PFSH Acute 2 PFSH: Medical History 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 Surgical History History of urostomy Social History Smoking and tobacco/nicotine status: former use of tobacco/nicotine Vitals/I&O/Wt Last Vital Signs Temp 99.1 F 02/22/23 08:21 Pulse 99 02/22/23 10:54 Resp 18 02/22/23 10:54 BP 141/89 02/22/23 10:54 Pulse Ox 92 02/22/23 10:54 O2 Del Method Nasal Cannula 02/22/23 09:30 O2 Flow Rate 2 02/22/23 09:30 02/21/23 02/22/23 02/22/23 22:59 06:59 14:59 Intake Total 1000 / 1000 Balance 1000 / 1000 Weight last 48 hrs Weight 170 lb Physical Exam 2 Narrative: General : Patient appears frail, he is in pain, oriented x3 Head : Normal cephalic, a-traumatic. Nose : Mucous membranes are without erythema. Lungs : Equal chest rise bilaterally, no use of accessory muscles, trachea is midline. CV : Rate and rhythm are normal. Abdomen : Distended, tender to palpation, no peritoneal signs, there is a urostomy with ileal conduit on the right hemiabdomen, this is productive of urine. Extremities : No edema. Upper extremities are normal bilaterally. Back : non-tender to palpation, no CVA tenderness. Data 02/22/23 08:24 02/22/23 08:24 A&P Assessment and plan (1) Partial small bowel obstruction: (2) History of ileal conduit: (3) History of total cystectomy: Plan After complete history, physical examination and review of all available clinical data the following is my assessment. Is a very complex patient with history of bladder cancer surgery as well as urinary diversion including a right nephrostomy tube and a left diversion via ileal conduit that opens up at the level of the right hemiabdomen. Patient presents with symptoms concerning for small bowel obstruction, he has had several episodes in the past, at that time it had been able to be managed with nonoperative management. I have reviewed all available labs and imaging, I agree that this might represent a partial small bowel obstruction in the imaging, but the area of transition appears to be closely related to the trajectory of the ileal conduit ostomy on the right hemiabdomen. This raises the concern that in the case of failure to progress patient will require extensive surgery with urology involvement in order to resolve his small bowel obstruction. I have explained to the patient and family members that at the moment there is no urology service in our hospital, and therefore I think the best option for him will be transferred to outside facility with urology availability as their involvement will be imperative in the case of the patient needed an intra-abdominal surgery due to the complex postsurgical anatomy. In the interim we will continue NG tube decompression and symptom management. Of note after decompressing the stomach patient's symptoms mildly improved. He denies passing gas at this point yet. His vital signs are stable and otherwise he is clinically stable for transfer, I have discussed this findings and the need for transfer with emergency department team and we will initiate transfer to higher level of care. Coding Level of Care Code 19816 Diagnoses Partial small bowel obstruction K56.600 History of ileal conduit Z98.890 History of total cystectomy Z90.6
--- NOTE | 2023-02-22 12:00 | DCPLANNER ---
I called [facility] for transfer on 02/22/23 at 1153 am. Transferred call to Dr. Sullivan, Nate spoke to the transfer center and was told they do not have any medsur beds available. Dr. Sullivan requested we try other places. At 1201 on 02/22 I called [facility] Transfer Line and spoke with Altagracia, Altagracia advised no beds available at all.
--- NOTE | 2023-02-22 17:28 | PC.NURSE ---
1000ML OUTPUT NG TUBE. JW
== END 2023-02-22 17:44 | disposition short-term general hospital (02) ==
PROVIDERS: Emergency Provider Family Medicine; PCP Family Medicine
DX: K56.600 Partial intestinal obstruction, unspecified as to cause (principal); Z79.02 Long term (current) use of antithrombotics/antiplatelets; Z93.3 Colostomy status; I69.359 Hemiplegia and hemiparesis following cerebral infarction affecting unspecified side; Z87.891 Personal history of nicotine dependence
CPT/HCPCS: 71045; 74176; 80053; 81001; 85025; 87077; 87086; 87106; 87186; 96360; 96372; 99285; J2550; J7030

== ENCOUNTER 2023-07-18 03:10 | Emergency (ER) | payer MEDICARE, OTHER, SELFPAY ==
[2023-07-18 03:12] VITALS: BP 149/114; PULSE 90; RESP 20; TEMP 37.2; O2SAT 92; BMI 31.9
--- NOTE | 2023-07-18 03:27 | ED_ITS ---
HPI - Nausea/Vomiting/Diarrhea 2 General: Chief complaint: Nausea/Vomiting/Diarrhea Stated complaint: N/V Time Seen by Provider: 07/18/23 03:26 History of Present Illness: 78-year-old male with a history of ileal conduit surgery. He has also had partial small bowel obstructions in the past. He presents with abdominal pain, vomiting. He is no longer doing this. Symptoms essentially seem resolved. No fever. Associated nausea: Yes Associated symtoms: Reports nausea; Denies chest pain or palpitations Review of Systems 2 Const: Denies: fever(s) or chills ENMT: Denies: throat pain Card: Denies: chest pain or palpitations Resp: Reports: dyspnea (chronic) GI: Reports: abdominal pain, nausea, vomiting and constipation PFSH ED 2 PFSH: Medical History 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 Surgical History History of urostomy Social History Smoking and tobacco/nicotine status: former use of tobacco/nicotine Physical Exam 2 Const: COMMON NORMALS: no acute distress GENERAL APPEARANCE: cooperative; not ill appearing and not frail appearing HENMT: COMMON NORMALS: normocephalic, atraumatic and Normal external nose present HEAD & SCALP: normocephalic and atraumatic FACE & SINUS: normal facial exam and face symmetric NOSE: Normal external nose present Eye: COMMON NORMALS: Equal, round and reactive pupils present and EOMs intact bilaterally PUPIL: Yes Equal, round and reactive pupils present Neck/C-Spine: GENERAL: Yes trachea midline Chest: CHEST: Yes Symmetrical chest wall rise Resp: COMMON NORMALS: normal respiratory effort, No retractions, No use of accessory muscles and clear to auscultation bilaterally AUSCULTATION: clear to auscultation bilaterally Cardio: COMMON NORMALS: regular rate and regular rhythm RATE: regular rate RHYTHM: regular rhythm GI: COMMON NORMALS: Soft to palpation INSPECTION: Yes abdominal distension AUSCULTATION: Yes normoactive bowel sounds PALPATION: Yes Soft to palpation and Yes Tenderness to palpation present (GI) (diffuse) OTHER: Ileoconduit apparatus in the right lower quadrant present. No drainage. No evident complication. Extremity: COMMON NORMALS: no pedal edema Neuro: ELISEO COMA SCALE: document GCS findings Eliseo coma scale eye opening: Spontaneous Weikert coma scale verbal response: Orientated Eliseo coma scale motor response: Obey commands Eliseo coma scale total score: 15 S ENSORY EXAM: Yes extremities (intact) Psych: COMMON NORMALS: speech normal SPEECH: Yes normal speech Skin: COMMON NORMALS: no rashes or lesions noted GENERAL SKIN EXAM: no rashes or lesions noted Course 2 Vital Signs: Vital signs: Vital Signs Temperature 98.9 F 07/18/23 03:12 Pulse Rate 82 07/18/23 04:26 Respiratory Rate 20 H 07/18/23 03:12 Blood Pressure 146/95 07/18/23 04:26 Pulse Oximetry 96 07/18/23 04:26 Oxygen Delivery Me thod Room Air 07/18/23 04:26 MDM - Nausea/Vomiting/Diarrhea Medical Decision Making 78-year-old male with several episodes of vomiting. Vitals been stable here. His temperature is 98.9. White blood cell count is 14. Creatinine is 1.4 which is slightly above baseline. His belly is distended. CT shows proximal small bowel dilatation and collapsed distal small bowel. There is not a clear transition. I spoke with our surgeon here. He has senior technologist with ileal conduit surgeries and would like to transfer the patient to the center where he had the apparatus placed if possible. This was at the [facility]. We will try to transfer there first. Currently he is stable. He does have a urinary tract infection for which he will be given antibiotics. We have a call out to surgery at [facility]. Nasogastric tube will be placed. Spoke with Dr. Sotelo who is general surgery/acute surgery at [facility]. He agrees to accept the patient in transfer. Lab Data 07/18/23 03:59 07/18/23 03:59 Radiology Impressions KUB X-Ray 07/18/23 03:32 IMPRESSION: 1. Right percutaneous nephrostomy catheter and left ureteral stent are again noted. 2. Nonspecific mild gaseous distension of bowel. Consider short-term radiograph follow-up with standard abdominal series or CT, as warranted. Abdomen/Pelvis CT 07/18/23 03:44 IMPRESSION: 1. Compared to 02/22/2023, there is a similar pattern of proximal small bowel dilation and collapsed distal small bowel without abrupt transition. 2. Cholelithiasis without evidence of acute cholecystitis or biliary duct obstruction. 3. Postsurgical changes of the urinary tract similar to prior exam. COMMENTS: Consistent with the [employer]'s Incidental Findings Committee white paper (J Am Meenu Radiol 2018): Any incidental renal lesion less than 1 cm or classified as too small to characterize, or any incidental cystic renal lesion characterized as simple-appearing, is likely benign. No follow-up imaging is recommended for these lesions per consensus recommendations based on imaging criteria. Laboratory Results WBC 14.18 10^3/uL (3.29-11.43) H 07/18/23 03:59 RBC 4.90 10^6/uL (3.85-5.65) 07/18/23 03:59 Hgb 15.40 g/dL (11.27-16.99) 07/18/23 03:59 Hct 47.8 % (37-53) 07/18/23 03:59 MCV 97.6 fl (82-101) 07/18/23 03:59 MCH 31.4 pg (27-33) 07/18/23 03:59 MCHC 32.2 g/dL (30-55) 07/18/23 03:59 RDW 14.6 % (12.1-15.1) 07/18/23 03:59 Plt Count 266 10^3/cmm (157-399) 07/18/23 03:59 MPV 9.0 fL (7.4-10.4) 07/18/23 03:59 Neut % (Auto) 80.9 % 07/18/23 03:59 Lymph % (Auto) 10.3 % 07/18/23 03:59 [place] % (Auto) 6.3 % 07/18/23 03:59 Eos % (Auto) 1.8 % 07/18/23 03:59 Baso % (Auto) 0.3 % 07/18/23 03:59 Neut # (Auto) 11.49 10^3/uL (1.8-7.7) H 07/18/23 03:59 Lymph # (Auto) 1.5 10^3/uL (0.8-4.8) 07/18/23 03:59 [place] # (Auto) 0.9 10^3/uL (0.2-0.9) 07/18/23 03:59 Eos # (Auto) 0.3 10^3/uL (0.0-0.8) 07/18/23 03:59 Baso # (Auto) 0.0 10^3/uL (0.0-0.1) 07/18/23 03:59 Nucleated RBC % (auto) 0 % 07/18/23 03:59 Nucleated RBCs # 0.0 /100WBC 07/18/23 03:59 Sodium 140 mmol/L (136-145) 07/18/23 03:59 Potassium 3.8 mmol/L (3.5-5.1) 07/18/23 03:59 Chloride 99 mmol/L (98-107) 07/18/23 03:59 Carbon Dioxide 29 mmol/L (22-29) 07/18/23 03:59 Anion Gap 15.8 (5-19) 07/18/23 03:59 BUN 15 mg/dL (8-23) 07/18/23 03:59 Creatinine 1.4 mg/dL (0.7-1.2) H 07/18/23 03:59 GFR Calculation Not Reportable 07/18/23 03:59 Glucose 119 mg/dL (65-115) H 07/18/23 03:59 Calculated Osmolality 292 mOsm/kg (285-295) 07/18/23 03:59 Calcium 9.1 mg/dL (8.5-10.5) 07/18/23 03:59 Total Bilirubin 0.6 mg/dL (0.15-1.2) 07/18/23 03:59 AST 20 U/L (0-40) 07/18/23 03:59 ALT 25 U/L (0-41) 07/18/23 03:59 Alkaline Phosphatase 135 U/L (40-130) H 07/18/23 03:59 C-Reactive Protein 28.6 mg/L (0.0-4.9) H 07/18/23 03:59 Total Protein 7.9 g/dL (6.6-8.7) 07/18/23 03:59 Albumin 3.8 g/dL (3.5-5.2) 07/18/23 03:59 Globulin 4.1 g/dL (1.3-4.6) 07/18/23 03:59 Lipase 19 U/L (13-60) 07/18/23 03:59 Urine Color Yellow (Yellow) 07/18/23 03:55 Urine Appearance Hazy (CLEAR) A 07/18/23 03:55 Urine pH 7 (5-7) 07/18/23 03:55 Ur Specific [place] 1.005 (1.005-1.030) 07/18/23 03:55 Urine Protein 2+ (Negative) H 07/18/23 03:55 Urine Glucose (UA) Norm (Normal) 07/18/23 03:55 Urine Ketones 1+ (Negative) H 07/18/23 03:55 Urine Blood 3+ (Negative) H 07/18/23 03:55 Urine Nitrate Negative (Negative) 07/18/23 03:55 Urine Bilirubin Neg (Negative) 07/18/23 03:55 Urine Urobilinogen Neg mg/dL (Negative) 07/18/23 03:55 Ur Leukocyte Esterase 2+ (Negative) H 07/18/23 03:55 Urine RBC 0-4 /hpf (0-2) H 07/18/23 03:55 Urine WBC 15-25 /hpf (0-5) H 07/18/23 03:55 Ur Squamous Epith Cells 0-4 /hpf (0-5) H 07/18/23 03:55 Amorphous Sediment 1+ /hpf 07/18/23 03:55 Urine Bacteria 1+ /hpf (NONE) H 07/18/23 03:55 Hyaline Casts 0-4 /lpf H 07/18/23 03:55 Fine Granular Casts 0-4 /lpf H 07/18/23 03:55 Coarse Granular Casts 0-4 /lpf H 07/18/23 03:55 Urine Mucus 1+ /hpf 07/18/23 03:55 All radiology interpretation(s) finalized by discharge Discharge Plan Discharge Patient Disposition: Xfer Short-Term Hosp Clinical Impression: History of ileal conduit, SBO (small bowel obstruction), Acute UTI Condition: Fair Referrals: Yosvany Estrella [Primary Care Provider] - Coding Level of Care Code ED Sole Sewer Hand for Brandan Greenwood
--- NOTE | 2023-07-18 03:32 | XRR_ITS ---
PROCEDURE INFORMATION: Exam: XR Abdomen Exam date and time: 07/18/2023 3:35 AM Age: 78 years old Clinical indication: Bloating and fever and vomiting; Prior surgery; Surgery date: 6+ months; Surgery type: Nephrostomy. Colectomy. Colostomy. Cystectomy. Urostomy. Patient HX: C/O n/v with abd distention. History of bladder cancer. ; Additional info: Abd pain, distension, vomiting TECHNIQUE: Imaging protocol: Radiologic exam of the abdomen. Views: Frontal supine view of the abdomen. 1 View. COMPARISON: CT abdomen pelvis con [id number] 02/22/2023 9:03 AM FINDINGS: Tubes, catheters and devices: A right percutaneous nephrostomy catheter is present. A left ureteral stent extends from left midabdomen to external drainage via ileostomy. Gastrointestinal tract: Mild gaseous distension of stomach and colon. Gas within sigmoid colon versus mildly dilated small bowel in the upper pelvic region. Bones/joints: No acute osseous abnormality detected. XR/XR KUB portable [id number] IMPRESSION: 1. Right percutaneous nephrostomy catheter and left ureteral stent are again noted. 2. Nonspecific mild gaseous distension of bowel. Consider short-term radiograph follow-up with standard abdominal series or CT, as warranted.
--- NOTE | 2023-07-18 03:44 | CTR_ITS ---
PROCEDURE INFORMATION: Exam: CT Abdomen And Pelvis With Contrast Exam date and time: 07/18/2023 4:07 AM Age: 78 years old Clinical indication: Bloating and nausea and vomiting; Prior surgery; Surgery date: 6+ months; Surgery type: Chest port. Nephrostomy. Colectomy. Colostomy. Cystectomy. Urostomy. Patient HX: C/O n/v with adb distention. History of bladder cancer. ; Additional info: Abd pain, distension, vomiting TECHNIQUE: Imaging protocol: Computed tomography of the abdomen and pelvis with contrast. Radiation optimization: All CT scans at this facility use at least one of these dose optimization techniques: automated exposure control; mA and/or kV adjustment per patient size (includes targeted exams where dose is matched to clinical indication); or iterative reconstruction. Contrast material: OMNI 350; Contrast volume: 80 ml; Contrast route: INTRAVENOUS (IV); COMPARISON: CT abdomen pelvis wo con [id number] 02/22/2023 9:03 AM RADIATION DOSE METRICS: Total DLP (mGy-cm): 1800.8 FINDINGS: Lungs: Mild chronic scarring in the right lower lobe. Liver: No acute abnormality or suspicious hepatic mass. Gallbladder and bile ducts: Multiple stones in the gallbladder. No gallbladder wall thickening or biliary duct dilation. Pancreas: No significant change in appearance of the pancreas compared to 02/22/2023. Spleen: Normal size; no suspicious masses. Adrenal glands: No suspicious adrenal masses. Kidneys and ureters: Diffuse cortical atrophy involves both kidneys. A percutaneous right nephrostomy catheter is present, likely accounting for small amount of air within right renal collecting system right ureter is mildly dilated. No hydronephrosis of the left kidney. Left ureteral stent extends from the left renal pelvis through ileal conduit to external drainage. A punctate calcification is present posteriorly in the left mid kidney. A tiny cyst is present at the upper pole of the left kidney. Stomach and bowel: Mildly dilated small bowel in the central abdomen measuring up to 4.2 cm diameter. Distal small bowel is collapsed. However, an abrupt transition point is not identified. Gas is present within nondilated colon. Appendix: Suspected prior appendectomy. Intraperitoneal space: No free intraperitoneal air, significant ascites, or localized fluid collections. Vasculature: Severe aortoiliac atherosclerotic calcifications without aneurysmal dilation. Lymph nodes: No enlarged lymph nodes. Urinary bladder: Status post cystectomy. Reproductive: Status post prostatectomy. Bones/joints: Severe chronic multilevel lumbar degenerative disc disease and facet arthropathy with multilevel fusion across the L2-L3 and L3-L4 disc spaces. Number likely ankylosis of the facet joints these levels. Soft tissues: Unremarkable. CT/CT abdomen pelvis w con* [id number] IMPRESSION: 1. Compared to 02/22/2023, there is a similar pattern of proximal small bowel dilation and collapsed distal small bowel without abrupt transition. 2. Cholelithiasis without evidence of acute cholecystitis or biliary duct obstruction. 3. Postsurgical changes of the urinary tract similar to prior exam. COMMENTS: Consistent with the [employer]'s Incidental Findings Committee white paper (J Am Meenu Radiol 2018): Any incidental renal lesion less than 1 cm or classified as too small to characterize, or any incidental cystic renal lesion characterized as simple-appearing, is likely benign. No follow-up imaging is recommended for these lesions per consensus recommendations based on imaging criteria.
[2023-07-18 04:06] LABS: Basophils % 0.3 %; Eosinophils # 0.3 10^3/uL (0.0-0.8); Eosinophils % 1.8 %; Hematocrit 47.8 % (37-53); Lymphocytes # 1.5 10^3/uL (0.8-4.8); Lymphocytes % 10.3 %; Mean Corpuscular HGB Conc 32.2 g/dL (30-55); Mean Corpuscular Hemoglobin 31.4 pg (27-33); Mean Corpuscular Volume 97.6 fl (82-101); Monocytes # 0.9 10^3/uL (0.2-0.9); Monocytes % 6.3 %; Neutrophils # 11.49 10^3/uL (1.8-7.7); Neutrophils % 80.9 %; Nucleated Red Blood Cells % 0 %; Platelet Count 266 10^3/cmm (157-399); Red Cell Distribution Width 14.6 % (12.1-15.1); White Blood Count 14.18 10^3/uL (3.29-11.43)
[2023-07-18] MEDS: iohexol 350 mg/mL 500 mL Btl (per mL) IV (04:09)
[2023-07-18 04:16] LABS: Add Urine Microscopic? YES; Bilirubin Urine Neg (Negative); Blood Urine 3+ (Negative); Glucose Urine UA Norm (Normal); Ketones Urine 1+ (Negative); Leukocyte Esterase Urine 2+ (Negative); Nitrate Urine Negative (Negative); Protein Urine 2+ (Negative); RBC Urine 0-4 /hpf (0-2); Specific Gravity, Urine 1.005 (1.005-1.030); Urine Appearance Hazy (CLEAR); Urine Color Yellow (Yellow); Urobilinogen Urine Neg (Negative); pH Urine 7 (5-7)
[2023-07-18 04:17] LABS: Amorphous Sediment Urine 1+ /hpf; Bacteria Urine 1+ /hpf; Mucus Urine 1+ /hpf; Squamous Epithelial Cell Urine 0-4 /hpf (0-5); WBC Urine 15-25 /hpf (0-5)
[2023-07-18 04:18] LABS: Add Urine Culture? Yes; Coarse Granular Casts Urine 0-4 /lpf; Fine Granular Casts Urine 0-4 /lpf; Hyaline Casts Urine 0-4 /lpf
[2023-07-18] MEDS: sodium chloride 0.9% 1,000 ML 999 ML IV (04:23)
[2023-07-18] MEDS: ondansetron 2 mg/ML SDV 2 mL 4 MG IVP ×2 (04:23→06:30)
[2023-07-18 04:26] VITALS: BP 146/95; PULSE 82; O2SAT 96
[2023-07-18 04:27] LABS: Alanine Aminotransferase 25 U/L (0-41); Albumin Level 3.8 g/dL (3.5-5.2); Alkaline Phosphatase 135 U/L (40-130); Anion Gap 15.8 (5-19); Aspartate Amino Transferase 20 U/L (0-40); Blood Urea Nitrogen 15 mg/dL (8-23); C Reactive Protein 28.6 mg/L (0.0-4.9); Calcium 9.1 mg/dL (8.5-10.5); Carbon Dioxide 29 mmol/L (22-29); Chloride 99 mmol/L (98-107); Creatinine Clr Calc Pharmacy 43.4117; Globulin 4.1 g/dL (1.3-4.6); Glucose 119 mg/dL (65-115); Lipase 19 U/L (13-60); Osmolality Calculated 292 mOsm/kg (285-295); Potassium 3.8 mmol/L (3.5-5.1); Sodium 140 mmol/L (136-145); Total Bilirubin 0.6 mg/dL (0.15-1.2); Total Protein 7.9 g/dL (6.6-8.7)
[2023-07-18 06:38] VITALS: BP 154/108; PULSE 93; RESP 18; O2SAT 95
[2023-07-18] MEDS: cetacaine Spray 5 gm Can 1 SPRAY TOPICAL (06:39)
--- NOTE | 2023-07-18 06:41 | PC.NURSE ---
attempted NG tube at this time. pt was not able to tolerate it. ED physician to place order
--- NOTE | 2023-07-18 06:43 | PC.NURSE ---
Report was called to Patricia Mendoza RN. Pt to be transferred to [address] [place] [id number] 29. All questions and concerns were addressed a time of report.
[2023-07-18] MEDS: cefTRIAXone 1,000 MG in sodium chloride 0.9% (plus) 50 ML 100 MG IV (06:53)
[2023-07-18] MEDS: sodium chloride 0.9% 1,000 ML 100 ML IV (06:53)
--- NOTE | 2023-07-18 07:25 | XRR_ITS ---
PROCEDURE INFORMATION: Exam: XR Chest Exam date and time: 07/18/2023 7:25 AM Age: 78 years old Clinical indication: Device placement; Ng tube; Additional info: Post ng placement TECHNIQUE: Imaging protocol: Radiologic exam of the chest. Views: 1 view. COMPARISON: CR (CHEST, ) 02/22/2023 11:07 AM FINDINGS: Tubes, catheters and devices: NG tube extends below the diaphragm, distal tip not imaged. Left subclavian central venous port terminates in the right atrium. Lungs: Very minimal basilar scarring. No acute infiltrate detected. Small parenchymal density over right midlung zone likely chronic scarring as similar finding was present on prior studies. Pleural spaces: No significant pleural fluid. No pneumothorax detected. Heart/Mediastinum: Heart size is stable. No pulmonary vascular congestion. Bones/joints: Bones appear osteopenic and there are not optimally visualized on this portable exam. XR/XR chest 1V portable [id number] IMPRESSION: NG tube extends below the diaphragm.
[2023-07-18] MEDS: midazolam 1 mg/mL INJ 2 mL IVP (07:42)
[2023-07-18] MEDS: LORazepam 2 mg/mL INJ 10 mL MDV IVP (07:42)
--- NOTE | 2023-07-18 07:47 | PC.NURSE ---
nurse took over care at 0700. pt resting in bed. nurse placed NG tube @ 0730
== END 2023-07-18 07:50 | disposition short-term general hospital (02) ==
PROVIDERS: Emergency Provider Emergency Medicine; PCP Family Medicine
DX: K56.609 Unspecified intestinal obstruction, unspecified as to partial versus complete obstruction (principal); N39.0 Urinary tract infection, site not specified; Z87.891 Personal history of nicotine dependence
CPT/HCPCS: 71045; 74018; 74177; 80053; 81001; 83690; 85025; 86140; 87077; 87086; 87186; 96361; 96374; 96375; 96376; 99285; J0696; J2060; J2250; J2405; J7030; Q9967

== ENCOUNTER 2024-03-18 08:36 | Emergency (ER) | payer MEDICARE, OTHER, SELFPAY ==
[2024-03-18 08:38] VITALS: BP 154/99; PULSE 79; RESP 17; TEMP 37.5; O2SAT 95; BMI 26.4
--- NOTE | 2024-03-18 09:30 | ED_ITS ---
HPI - Nausea/Vomiting/Diarrhea 2 General: Chief complaint: Nausea/Vomiting/Diarrhea Stated complaint: abd pain Time Seen by Provider: 03/18/24 09:07 History of Present Illness: 78-year-old male presents emergency room complaining of abdominal pain with nausea and vomiting. He was seen yesterday at an outlying ER at that time he thought he had a viral gastroenteritis and that he was discharged home they advised him he could use Imodium. He been having some diarrhea prior to that no hematochezia or melena. He took the Imodium has not had any bowel movement since now has become very nauseated he has noticed significant distention of his abdomen. He has urostomy and nephrostomy tubes in place. He is awake and alert. He has not had any hematemesis or coffee-ground emesis that he is noted. He denies any chest pain at this time. reports she has had a low-grade fever at home. Associated nausea: Yes Associated symtoms: Reports nausea; Denies chest pain or dysuria Related Data Home Medications Medication Instructions Recorded Confirmed clopidogrel 75 mg tablet 75 mg PO DAILY 09/05/21 03/18/24 fluoxetine 40 mg capsule 40 mg PO DAILY 09/05/21 03/18/24 gabapentin 600 mg tablet 600 mg PO TID 03/18/24 03/18/24 ondansetron 4 mg disintegrating 4 mg PO QID 03/18/24 03/18/24 tablet propranolol 10 mg tablet 10 mg PO BID 03/18/24 03/18/24 roflumilast 500 mcg tablet 250 mcg PO DAILY 03/18/24 03/18/24 trazodone 100 mg tablet 100 mg PO QPM 03/18/24 03/18/24 Previous Rx's Medication Instructions Recorded pramipexole 0.125 mg tablet See Rx Instructions .Route 08/10/23 .COMPLEX #90 tabs Allergies Allergy/AdvReac Type Severity Reaction Status Date / Time cephalexin Allergy Unknown Unknown Verified 07/18/23 03:17 nitrofurantoin Allergy Unknown Unknown Verified 07/18/23 03:17 Penicillins Allergy Unknown Unknown Verified 01/13/24 11:54 Sulfa Allergy Unknown Unknown Uncoded 07/18/23 03:17 Review of Systems 2 Const: Denies: fever(s) or chills Card: Denies: chest pain Resp: Denies: dyspnea GI: Reports: abdominal pain, nausea, vomiting and diarrhea (Stopped after taking Imodium now no BMs); Denies: hematemesis, coffee ground emesis, hematochezia or melena : Denies: dysuria, urinary frequency or urinary urgency Musc: Denies: neck pain or back pain Skin/Breast: Denies: rash PFSH ED 2 PFSH: Medical History 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 Surgical History History of urostomy Social History Smoking and tobacco/nicotine status: former use of tobacco/nicotine Physical Exam 2 Const: COMMON NORMALS: no acute distress GENERAL APPEARANCE: cooperative and comfortable ORIENTATION/CONSCIOUSNESS: Yes awake, Yes oriented to person, Yes oriented to place and Yes oriented to time HENMT: COMMON NORMALS: normocephalic, atraumatic and hearing grossly normal bilaterally HEAD & SCALP: normocephalic and atraumatic Resp: COMMON NORMALS: normal respiratory effort, No retractions, No use of accessory muscles and clear to auscultation bilaterally AUSCULTATION: clear to auscultation bilaterally Cardio: COMMON NORMALS: regular rate, regular rhythm and No murmurs present (Cardio) RATE: regular rate RHYTHM: regular rhythm GI: INSPECTION: Yes abdominal distension AUSCULTATION: Yes Absent bowel sounds PALPATION: Yes Tenderness to palpation present (GI) and No Guarding due to palpation present (GI) PERCUSSION: tympanic to percussion Extremity: COMMON NORMALS: normal to inspection, capillary refill normal, no clubbing, cyanosis or edema, no calf tenderness and no pedal edema Neuro: SENSORIUM/ORIENTATION: Yes oriented to person, Yes oriented to place and Yes oriented to time Skin: OTHER: Excessive bruising on the extremities. Unchanged from baseline Course 2 Vital Signs: Vital signs: Vital Signs Temperature 99.5 F 03/18/24 08:38 Pulse Rate 83 03/18/24 14:46 Respiratory Rate 17 03/18/24 08:38 Blood Pressure 121/91 03/18/24 14:46 Pulse Oximetry 93 03/18/24 14:46 Oxygen Delivery Me thod Nasal Cannula 03/18/24 14:46 Oxygen Flow Rate 3 03/18/24 14:46 MDM - Nausea/Vomiting/Diarrhea Medical Decision Making Small bowel obstruction complicated by the fact patient has nephrostomy and urostomy tubes. Discussed Dr. Farah he feels patient should go to a higher level of care. He has previously been to both [facility] and [facility]. Patient requested to go to [facility] we contacted them they agreed to take but said it would be better patient back to [facility] for most of his surgical work has been done we contacted [facility] they declined they do not have any bed capacity [facility] did agree to take patient on transfer. NG tube has been placed he has been started on Cipro and Flagyl. Labs reviewed as found on the chart CT reviewed as well discussed with receiving physician. Medical Records I reviewed the patient's medical records. Lab Data I reviewed the patient's lab results. 03/18/24 09:30 03/18/24 09:30 Radiology Impressions Abdomen/Pelvis CT 03/18/24 09:39 IMPRESSION: 1. Multiple dilated loops of small bowel measuring up to 5 cm with air-fluid levels and greater than 50% difference between dilated and nondilated loops. There is associated soft tissue stranding along the right lower quadrant, new. Findings have slightly progressed compared to prior imaging dated 07/18/2023. Differential diagnosis includes high-grade small bowel obstruction versus partial small bowel obstruction. 2. Right nephrostomy tube in place with a small locule of air in the right renal pelvis, likely postoperative or procedural in nature. No right-sided hydronephrosis. 3. Left nephroureteral stent with its distal tip exiting the right lower quadrant, status post urostomy. 4. Multiple calcified gallstones without evidence of acute cholecystitis. 5. Distal patulous, fluid-filled esophagus, likely consistent with esophageal dysmotility or stasis. ADDENDUM: 03/18/24 1120 THIS REPORT CONTAINS FINDINGS THAT MAY BE CRITICAL TO PATIENT CARE. The findings were verbally communicated via telephone conference with BRADY Roldan at 11:19 AM LABORATORY EQUIPMENT INSTALLER on 03/18/2024. The findings were acknowledged and understood. Chest X-Ray 03/18/24 12:07 IMPRESSION: There is an NG tube coursing through the midline, with its tip near the gastroesophageal junction. Unchanged. Laboratory Results WBC 20.22 10^3/uL (3.29-11.43) H 03/18/24 09:30 RBC 4.76 10^6/uL (3.85-5.65) 03/18/24 09:30 Hgb 14.50 g/dL (11.27-16.99) 03/18/24 09:30 Hct 45.8 % (37-53) 03/18/24 09:30 MCV 96.2 fl (82-101) 03/18/24 09:30 MCH 30.5 pg (27-33) 03/18/24 09:30 MCHC 31.7 g/dL (30-55) 03/18/24 09:30 RDW 15.7 % (12.1-15.1) H 03/18/24 09:30 Plt Count 292 10^3/cmm (157-399) 03/18/24 09:30 MPV 9.1 fL (7.4-10.4) 03/18/24 09:30 Neut % (Auto) 84.8 % 03/18/24 09:30 Lymph % (Auto) 9.0 % 03/18/24 09:30 [place] % (Auto) 5.4 % 03/18/24 09:30 Eos % (Auto) 0.1 % 03/18/24:30 Baso % (Auto) 0.1 % 03/18/24 09:30 Neut # (Auto) 17.14 10^3/uL (1.8-7.7) H 03/18/24 09:30 Lymph # (Auto) 1.8 10^3/uL (0.8-4.8) 03/18/24 09:30 [place] # (Auto) 1.1 10^3/uL (0.2-0.9) H 03/18/24 09:30 Eos # (Auto) 0.0 10^3/uL (0.0-0.8) 03/18/24 09:30 Baso # (Auto) 0.0 10^3/uL (0.0-0.1) 03/18/24 09:30 Nucleated RBC % (auto) 0 % 03/18/24:30 Nucleated RBCs # 0.0 /100WBC 03/18/24 09:30 Sodium 138 mmol/L (136-145) 03/18/24 09:30 Potassium 3.9 mmol/L (3.5-5.1) 03/18/24 09:30 Chloride 96 mmol/L (98-107) L 03/18/24 09:30 Carbon Dioxide 25 mmol/L (22-29) 03/18/24:30 Anion Gap 20.9 (5-19) H 03/18/24:30 BUN 27 mg/dL (8-23) H 03/18/24 09:30 Creatinine 1.4 mg/dL (0.7-1.2) H 03/18/24 09:30 GFR Calculation Not Reportable 03/18/24: Glucose 114 mg/dL (65-115) 03/18/24: Calculated Osmolality 292 mOsm/kg (285-295) 03/18/24: Lactic Acid 1.0 mmol/L (0.5-2.2) 03/18/24:30 Calcium 9.2 mg/dL (8.5-10.5) 03/18/24 09:30 Total Bilirubin 0.7 mg/dL (0.15-1.2) 03/18/24 09:30 AST 90 U/L (0-40) H 03/18/24:30 ALT 30 U/L (0-41) 03/18/24 09:30 Alkaline Phosphatase 126 U/L (40-130) 03/18/24 09:30 Total Protein 7.5 g/dL (6.6-8.7) 03/18/24: Albumin 3.7 g/dL (3.5-5.2) 03/18/24 09:30 Globulin 3.8 g/dL (1.3-4.6) 03/18/24:30 Lipase 194 U/L (13-60) H 03/18/24 09:30 Urine Color Yellow (Yellow) 03/18/24:35 Urine Appearance Cloudy (CLEAR) A 03/18/24: Urine pH 5.5 (5-7) 03/18/24: Ur Specific [place] 1.020 (1.005-1.030) 03/18/24: Urine Protein 3+ (Negative) A 01/18/25 09:35 Urine Glucose (UA) Negative (Normal) 03/18/24 09:35 Urine Ketones 2+ (Negative) H 03/18/24 09:35 Urine Blood 3+ (Negative) A 03/18/24 09:35 Urine Nitrate Negative (Negative) 03/18/24 09:35 Urine Bilirubin Negative (Negative) 03/18/24 09:35 Urine Urobilinogen 0.2 mg/dL (Negative) 03/18/24 09:35 Ur Leukocyte Esterase 1+ (Negative) A 03/18/24 09:35 Urine RBC 6-10 /hpf (0-2) 03/18/24 09:35 Urine WBC 51-100 /hpf (0-5) H 03/18/24 09:35 Ur Squamous Epith Cells 0-5 /hpf (0-5) 03/18/24 09:35 Amorphous Sediment Not Reportable 03/18/24 09:35 Urine Bacteria 1+ /hpf (NONE) H 03/18/24 09:35 Hyaline Casts 9.91 /lpf 03/18/24 09:35 Fine Granular Casts 0-4 /lpf H 03/18/24 09:35 Coarse Granular Casts 5-10 /lpf H 03/18/24 09:35 Urine Mucus 1+ /hpf 03/18/24 09:35 All radiology interpretation(s) finalized by discharge Discharge Plan Discharge Patient Disposition: Xfer Short-Term Hosp Clinical Impression: UTI (urinary tract infection), Hemiplegia as late effect of stroke, History of ileal conduit, Central pain syndrome, SBO (small bowel obstruction) Condition: Stable Prescriptions: No Action clopidogrel 75 mg tablet 75 mg PO DAILY fluoxetine 40 mg capsule 40 mg PO DAILY pramipexole 0.125 mg tablet See Rx Instructions .ROUTE .COMPLEX Qty: 90 0RF Dose Instruction: TAKE 1 TABLET BY MOUTH IN THE MORNING, AND 2 TABLETS AT NIGHT Rx Instructions: TAKE 1 TABLET BY MOUTH IN THE MORNING, AND 2 TABLETS AT NIGHT gabapentin 600 mg tablet 600 mg PO TID propranolol 10 mg tablet 10 mg PO BID trazodone 100 mg tablet 100 mg PO QPM ondansetron 4 mg tablet,disintegrating 4 mg PO QID roflumilast 500 mcg tablet 250 mcg PO DAILY Referrals: Yosvany Estrella [Primary Care Provider] - Coding Level of Care Code ED Home Mission Worker for Chg Fwd
--- NOTE | 2024-03-18 09:39 | CTR_ITS ---
PROCEDURE INFORMATION: Exam: CT Abdomen And Pelvis Without Contrast Exam date and time: 03/18/2024 10:12 AM Age: 78 years old Clinical indication: Nausea and vomiting; Additional info: Abdominal pain TECHNIQUE: Imaging protocol: Computed tomography of the abdomen and pelvis without contrast. Radiation optimization: All CT scans at this facility use at least one of these dose optimization techniques: automated exposure control; mA and/or kV adjustment per patient size (includes targeted exams where dose is matched to clinical indication); or iterative reconstruction. COMPARISON: CT abdomen pelvis w con* [id number] 07/18/2023 4:07 AM RADIATION DOSE METRICS: Total DLP (mGy-cm): 903.08 FINDINGS: Tubes, catheters and devices: Right nephrostomy tube, no right-sided hydronephrosis. There is a small locule of air along the right renal pelvis. Status post urostomy Lungs: Centrilobular emphysema partially visualized Esophagus: Distal patulous fluid-filled esophagus partially visualized Liver: Normal. No mass. Gallbladder and biliary ducts: Multiple calcified gallstones are present. Pancreas: No pancreatitis. Main pancreatic duct within normal limits. There is diffuse, benign fatty infiltration of the pancreas. Spleen: Normal. No splenomegaly. Adrenal glands: Normal. No mass. Kidneys and ureters: There is a left nephroureteral stent with its distal tip observed exiting the right lower quadrant Stomach and bowel: Formed stool is observed in the distal rectum and rectal vault, the sigmoid colon is normal caliber. Stomach and proximal bowel are fluid-filled. There are multiple air-fluid levels of the small bowel, with the small bowel measuring up to 5 centimeters there is greater than 50% difference between dilated and nondilated loops of bowel SUV approaches the right lower quadrant (series 3, image 63). Findings of small bowel dilatation have slightly increased in diameter when compared to prior imaging dated 07/18/2023 Appendix: No evidence of appendicitis. Intraperitoneal space: Unremarkable. No free air. No significant fluid collection. Vasculature: Scattered calcified and noncalcified plaques throughout the abdominal aorta and iliac arteries without any aneurysmal dilatation. Lymph nodes: Unremarkable. No enlarged lymph nodes. Urinary bladder: Status post cystectomy Reproductive: Unremarkable as visualized. Bones/joints: No acute fracture, multilevel degenerative changes of the thoracic spine, with fusion of L2-4, severe intervertebral space disc narrowing anterior osteophyte bridging. Soft tissues: Unremarkable. CT/CT abdomen pelvis wo con [id number] IMPRESSION: 1. Multiple dilated loops of small bowel measuring up to 5 cm with air-fluid levels and greater than 50% difference between dilated and nondilated loops. There is associated soft tissue stranding along the right lower quadrant, new. Findings have slightly progressed compared to prior imaging dated 07/18/2023. Differential diagnosis includes high-grade small bowel obstruction versus partial small bowel obstruction. 2. Right nephrostomy tube in place with a small locule of air in the right renal pelvis, likely postoperative or procedural in nature. No right-sided hydronephrosis. 3. Left nephroureteral stent with its distal tip exiting the right lower quadrant, status post urostomy. 4. Multiple calcified gallstones without evidence of acute cholecystitis. 5. Distal patulous, fluid-filled esophagus, likely consistent with esophageal dysmotility or stasis.
[2024-03-18 09:45] LABS: Basophils % 0.1 %; Eosinophils % 0.1 %; Hematocrit 45.8 % (37-53); Lymphocytes # 1.8 10^3/uL (0.8-4.8); Mean Corpuscular HGB Conc 31.7 g/dL (30-55); Mean Corpuscular Hemoglobin 30.5 pg (27-33); Mean Corpuscular Volume 96.2 fl (82-101); Mean Platelet Volume 9.1 fL (7.4-10.4); Monocytes # 1.1 10^3/uL (0.2-0.9); Monocytes % 5.4 %; Neutrophils # 17.14 10^3/uL (1.8-7.7); Neutrophils % 84.8 %; Nucleated Red Blood Cells % 0 %; Platelet Count 292 10^3/cmm (157-399); Red Blood Count 4.76 10^6/uL (3.85-5.65); Red Cell Distribution Width 15.7 % (12.1-15.1); White Blood Count 20.22 10^3/uL (3.29-11.43)
[2024-03-18 09:46] LABS: Bilirubin Urine Negative (Negative); Blood Urine 3+ (Negative); Glucose Urine UA Negative (Normal); Ketones Urine 2+ (Negative); Leukocyte Esterase Urine 1+ (Negative); Nitrate Urine Negative (Negative); Protein Urine 3+ (Negative); Urine Appearance Cloudy (CLEAR); Urine Color Yellow (Yellow); Urobilinogen Urine 0.2 mg/dL (Negative); pH Urine 5.5 (5-7)
[2024-03-18 09:48] LABS: Add Urine Microscopic? YES; Bacteria Urine 1+ /hpf; Hyaline Casts Urine 9.91 /lpf; Squamous Epithelial Cell Urine 0-5 /hpf (0-5); WBC Urine 51-100 /hpf (0-5)
[2024-03-18 09:53] VITALS: BP 164/94; PULSE 78; O2SAT 95
[2024-03-18 10:01] LABS: UA Slide Review UA Slide Review Perf
[2024-03-18 10:02] LABS: Add Urine Culture? Yes; Fine Granular Casts Urine 0-4 /lpf; Mucus Urine 1+ /hpf
[2024-03-18 10:06] LABS: Alanine Aminotransferase 30 U/L (0-41); Albumin Level 3.7 g/dL (3.5-5.2); Alkaline Phosphatase 126 U/L (40-130); Anion Gap 20.9 (5-19); Aspartate Amino Transferase 90 U/L (0-40); Blood Urea Nitrogen 27 mg/dL (8-23); Calcium 9.2 mg/dL (8.5-10.5); Carbon Dioxide 25 mmol/L (22-29); Chloride 96 mmol/L (98-107); Creatinine Clr Calc Pharmacy 45.3247; Globulin 3.8 g/dL (1.3-4.6); Glucose 114 mg/dL (65-115); Lipase 194 U/L (13-60); Osmolality Calculated 292 mOsm/kg (285-295); Potassium 3.9 mmol/L (3.5-5.1); Sodium 138 mmol/L (136-145); Total Bilirubin 0.7 mg/dL (0.15-1.2); Total Protein 7.5 g/dL (6.6-8.7)
[2024-03-18] MEDS: ondansetron 2 mg/ML SDV 2 mL 8 MG IVP (11:18)
[2024-03-18] MEDS: pantoprazole 40 mg SDV 80 MG IVP (11:18)
--- NOTE | 2024-03-18 11:33 | XRR_ITS ---
PROCEDURE INFORMATION: Exam: XR Chest Exam date and time: 03/18/2024 11:35 AM Age: 78 years old Clinical indication: Device placement; Ng tube; Prior surgery; Surgery date: 1-6 months; Surgery type: Nephrostomy; Colectomy; Colostomy; Urostomy; Additional info: Ng placement TECHNIQUE: Imaging protocol: Radiologic exam of the chest. Views: 1 view. COMPARISON: CR XR chest 1V portable [id number] 07/18/2023 7:25 AM FINDINGS: Tubes, catheters and devices: There is an NG tube coursing through the midline, with its tip near the gastroesophageal junction . There is left central venous catheter with its tip terminating near the right atrium Lungs: Unremarkable. No consolidation. Pleural spaces: Bilateral apices not visualized. No pleural effusion Heart/Mediastinum: Unremarkable. No cardiomegaly. Bones/joints: Unremarkable. XR/XR chest 1V portable [id number] IMPRESSION: There is an NG tube coursing through the midline, with its tip near the gastroesophageal junction. Consider advancement by 4-5 cm
--- NOTE | 2024-03-18 12:07 | P.CONIM_ITS ---
Providers/Reason For Consult 2 Consulting Physician/Specialty*: General Surgery Reason for Consult*: Small bowel obstruction Primary Care Provider: Yosvany Estrella History of Present Illness History of Present Illness Maxwell Grimes is a 78 year old male with extensive surgical history including pelvic exenteration for bladder cancer, ileal conduit creation and right nephrostomy. Patient has had multiple episodes of bowel obstruction, last time he presented to our facility and was transferred out for evaluation of higher level of care as we do not have a urologist in the staff. Over the last 3 days patient Had significant abdominal distention and pain and has developed feculent emesis. He presented to an outside hospital where he was told he had a norovirus and discharged home. Presents here with worsening symptoms. CT scan show evidence of SBO and NG tube was placed putting out around 700 cc of enteric content Review of Systems 2 General: Reports: 10 or more systems reviewed and unremarkable except in HPI and below Medications/Allergies Home Medications Medication Instructions Recorded Confirmed Last Taken Type clopidogrel 75 mg tablet 75 mg PO DAILY 09/05/21 03/18/24 03/17/24 History fluoxetine 40 mg capsule 40 mg PO DAILY 09/05/21 03/18/24 03/17/24 History pramipexole 0.125 mg tablet See Rx Instructions .Route 08/10/23 03/18/24 03/17/24 Rx .COMPLEX #90 tabs gabapentin 600 mg tablet 600 mg PO TID 03/18/24 03/18/24 03/18/24 History ondansetron 4 mg disintegrating 4 mg PO QID 03/18/24 03/18/24 Unknown History tablet propranolol 10 mg tablet 10 mg PO BID 03/18/24 03/18/24 Unknown History roflumilast 500 mcg tablet 250 mcg PO DAILY 03/18/24 03/18/24 Unknown History trazodone 100 mg tablet 100 mg PO QPM 03/18/24 03/18/24 Unknown History Allergies Allergy/AdvReac Type Severity Reaction Status Date / Time cephalexin Allergy Unknown Unknown Verified 07/18/23 03:17 nitrofurantoin Allergy Unknown Unknown Verified 07/18/23 03:17 Penicillins Allergy Unknown Unknown Verified 01/13/24 11:54 Sulfa Allergy Unknown Unknown Uncoded 07/18/23 03:17 PFSH Acute 2 PFSH: Medical History 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 Ileal conduit on the right side of the abdomen appears healthy. Data 03/18/24 09:30 03/18/24 09:30 A&P Assessment and plan (1) History of ileal conduit: (2) SBO (small bowel obstruction): Plan After complete history, physical examination and review of all available clinical data the following is my assessment. Patient has a very complex medical history including an ileal conduit, as noted in previous presentation to the ED his ileal conduit appears to be a reconstruction of the left ureter and transverses the whole abdomen to an ostomy on the right side. This specific imaging finding demonstrates a high complexity of the patient and in the case of surgical intervention extensive surgery with urology involvement will be necessary. Unfortunately at this point we do not have a urologist in the staff. While his last episode of small bowel obstruction had resolved with conservative management, imaging appears to be significantly worsened than in the last evaluation, there is stranding in the soft tissue of the right hemiabdomen at the level of the involved loop of bowel as well as the ileal conduit and the distention of the loops of bowel is significantly increased up to 5 cm. This raises the concern for a high-grade small bowel obstruction that we will require surgical management. Taking consideration of all these factors the best option for the patient at this point will be to be transferred to higher level of care for evaluation at the facility with urology availability due to his complex postsurgical anatomy. In the interim I agree with NG tube decompression and IV fluids. And the moment of my evaluation the patient is stable for transfer to higher level of care. I have discussed the findings with ER team and transfer process will be initiated Coding Level of Care Code Acute Code for Chg Fwd Diagnoses History of ileal conduit Z98.890 SBO (small bowel obstruction) K56.609
--- NOTE | 2024-03-18 12:07 | XRR_ITS ---
PROCEDURE INFORMATION: Exam: XR Chest Exam date and time: 03/18/2024 12:09 PM Age: 78 years old Clinical indication: Device placement; Ng tube; Additional info: Post ng placement TECHNIQUE: Imaging protocol: Radiologic exam of the chest. Views: 1 view. COMPARISON: CR (CHEST, ) 03/18/2024 11:35 AM FINDINGS: Tubes, catheters and devices: There is an NG tube coursing through the midline, with its tip near the gastroesophageal junction . There is left central venous catheter with its tip terminating near the right atrium Lungs: Unremarkable. No consolidation. Pleural spaces: Bilateral apices not visualized. No pleural effusion Heart/Mediastinum: Unremarkable. No cardiomegaly. Bones/joints: Unremarkable. XR/XR chest 1V portable [id number] IMPRESSION: There is an NG tube coursing through the midline, with its tip near the gastroesophageal junction. Unchanged.
[2024-03-18] MEDS: metroNIDAZOLE IV 500 MG/100 ML PREMIX 100 MG IV (12:40)
[2024-03-18 13:16] VITALS: BP 125/76; PULSE 78; O2SAT 95
[2024-03-18] MEDS: ciprofloxacin 400 MG/200 ML PREMIX 200 MG IV (13:50)
[2024-03-18 14:46] VITALS: BP 121/91; PULSE 83; O2SAT 93
[2024-03-18 15:33] VITALS: BP 118/79; PULSE 83; O2SAT 97
[2024-03-18 16:21] VITALS: BP 124/79; PULSE 84; O2SAT 97
== END 2024-03-18 16:22 | disposition short-term general hospital (02) ==
PROVIDERS: Emergency Provider Family Medicine; PCP Family Medicine
DX: N39.0 Urinary tract infection, site not specified (principal); G81.90 Hemiplegia, unspecified affecting unspecified side; G89.0 Central pain syndrome; K56.609 Unspecified intestinal obstruction, unspecified as to partial versus complete obstruction; Z87.891 Personal history of nicotine dependence
CPT/HCPCS: 36415; 71045; 74176; 80053; 81001; 83605; 83690; 85025; 87077; 87086; 87186; 96365; 96367; 96375; 99285; J0744; J2405; J2470; J3490

== ENCOUNTER 2024-03-25 14:09 | Emergency (ER) | payer MEDICARE, OTHER, SELFPAY ==
[2024-03-25] VITALS (9 sets, daily range): BP systolic 117–141; BP diastolic 65–95; PULSE 80–89; RESP 16–18; TEMP 37; O2SAT 91–97; BMI 29.7
--- NOTE | 2024-03-25 14:48 | XRR_ITS ---
PROCEDURE INFORMATION: Exam: XR Chest Exam date and time: 03/25/2024 3:04 PM Age: 78 years old Clinical indication: Patient HX: Weakness; SOB; Hypoxia TECHNIQUE: Imaging protocol: Radiologic exam of the chest. Views: 1 view. COMPARISON: CR (CHEST, ) 03/18/2024 12:09 PM FINDINGS: Tubes, catheters and devices: There is a left chest wall medication port with line tubing that appears to terminate near the superior cavoatrial junction. Lungs: There is minimal linear opacity in the left lung base and minimal opacity in the right mid lung field laterally likely representing chronic scarring or atelectasis although minimal infiltrate cannot be excluded. Coarse pulmonary markings and hyperlucent lungs suggesting underlying COPD. Pleural spaces: No pneumothorax or pleural effusion suggested. Heart/Mediastinum: Normal size of the cardiac silhouette. Vasculature: Atherosclerosis in the aortic arch. Bones/joints: Mild degenerative changes in the spine and shoulders. XR/XR chest 1V portable [id number] IMPRESSION: 1. No definite acute cardiopulmonary disease. Probable chronic scarring or atelectasis in the right mid lung laterally and left lung base although infiltrate cannot be excluded. 2. Chronic findings as above.
--- NOTE | 2024-03-25 14:49 | ECG_ITS ---
[facility] Date: 2024-03-25 Pat Name: Maxwell Grimes Department: Room: Gender: Male Adult Daycare Coordinator: : 1945 Requested By: Leodan Dowling Order Number: [id number] Dodge MD: Cruz Escobar M.D. Measurements Intervals [place] Rate: 80 P: 84 LA: 150 QRS: 61 QRSD: 76 T: 89 QT: 386 QTc: 446 Interpretive Statements SINUS RHYTHM Compared to ECG 01/04/2022 12:05:33 No significant changes Electronically Signed On 03-25-2024 22:58:13 EYELET RIVETER by Cruz Escobar M.D. [email or web address]
--- NOTE | 2024-03-25 15:05 | ED_ITS ---
HPI - Altered Mental Status 2 General: Chief Complaint: Altered Mental Status Stated Complaint: ams Time Seen by Provider: 03/25/24 14:21 History of Present Illness: Patient is a chronically ill-appearing 78-year-old gentleman who presents from the rehab facility due to increased somnolence and difficulty awakening this morning. Patient had apparently been sleeping around 10 AM this morning in the rehab staff went to try to arouse him and he was difficult to arouse. Ultimately EMS was called and as soon as patient was transitioned over to EMS stretcher the states his mentation resolved and he is at his baseline. He has no acute complaints and denies any specific pain or discomfort. The and son who are in the room at bedside states he is at his baseline currently. He does have a history of bladder cancer and has a urostomy. He also has a right nephrostomy. He was admitted to an outside facility a couple weeks ago for small bowel obstruction. He denies any abdominal pain or nausea or vomiting. He had a bowel movement yesterday. Timing confirmed by: spouse and family member Severity: moderate Consistency of symptoms: Waxing and Waning Related Data Home Medications Medication Instructions Recorded Confirmed clopidogrel 75 mg tablet 75 mg PO DAILY 09/05/21 03/25/24 fluoxetine 40 mg capsule 40 mg PO DAILY 09/05/21 03/25/24 gabapentin 600 mg tablet 600 mg PO TID PRN nerve pain 03/18/24 03/25/24 ondansetron 4 mg disintegrating 4 mg PO QID PRN Nausea 03/18/24 03/25/24 tablet propranolol 10 mg tablet 10 mg PO BID 03/18/24 03/25/24 roflumilast 500 mcg tablet 250 mcg PO DAILY 03/18/24 03/25/24 trazodone 100 mg tablet 100 mg PO QPM 03/18/24 03/25/24 metoclopramide HCl 5 mg tablet 5 mg PO TID PRN Nausea 03/25/24 03/25/24 Previous Rx's Medication Instructions Recorded pramipexole 0.125 mg tablet See Rx Instructions .Route 08/10/23 .COMPLEX #90 tabs Allergies Allergy/AdvReac Type Severity Reaction Status Date / Time cephalexin Allergy Unknown Unknown Verified 07/18/23 03:17 nitrofurantoin Allergy Unknown Unknown Verified 07/18/23 03:17 Penicillins Allergy Unknown Unknown Verified 01/13/24 11:54 Sulfa Allergy Unknown Unknown Uncoded 07/18/23 03:17 Review of Systems 2 Const: Reports: fatigue and malaise Card: Denies: chest pain or palpitations Resp: Denies: dyspnea GI: Denies: abdominal pain, nausea or vomiting Skin/Breast: Denies: rash PFSH ED 2 PFSH: Medical History 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 Surgical History History of urostomy Social History Smoking and tobacco/nicotine status: former use of tobacco/nicotine Physical Exam 2 Const: COMMON NORMALS: no acute distress and patient oriented x3 GENERAL APPEARANCE: cooperative and well developed OTHER: Chronically ill-appearing 78-year-old gentleman in no acute distress HENMT: COMMON NORMALS: normocephalic and atraumatic HEAD & SCALP: n ormocephalic and atraumatic Eye: COMMON NORMALS: EOMs intact bilaterally Resp: COMMON NORMALS: normal respiratory effort, No retractions, No use of accessory muscles and clear to auscultation bilaterally EFFORT & INSPECTION: Yes able to speak in complete sentences AUSCULTATION: clear to auscultation bilaterally Cardio: COMMON NORMALS: regular rate and regular rhythm RATE: regular rate RHYTHM: regular rhythm GI: COMMON NORMALS: Soft to palpation and non-tender PALPATION: Yes Soft to palpation OTHER: Urostomy bag noted to the right lower quadrant. Right-sided nephrostomy tube noted. Extremity: COMMON NORMALS: normal to inspection NARRATIVE EXTREMITY EXAM: Patient moves all 4 extremities well. He has some mild global weakness in the bilateral lower extremities but is able to elevate both of his lower legs off the stretcher without any difficulty. Equal custom grinder bilaterally. Neuro: COMMON NORMALS: patient oriented x3 OTHER: Patient is oriented to person, place, and year. Psych: COMMON NORMALS: mental status grossly normal, cooperative and normal affect Course 2 Vital Signs: Vital signs: Vital Signs Temperature 98.6 F 03/25/24 14:20 Pulse Rate 82 03/25/24 16:54 Respiratory Rate 16 03/25/24 16:54 Blood Pressure 141/65 03/25/24 16:54 Pulse Oximetry 96 03/25/24 16:54 Oxygen Delivery Me thod Room Air 03/25/24 16:54 Oxygen Flow Rate 2 03/25/24 15:34 MDM - Altered Mental Status Medical Decision Making Patient is a chronically ill 78-year-old gentleman who apparently was difficult to arouse at the intermediate/rehab facility this afternoon/morning. He is at his baseline currently per family in the room. He has no acute complaints. Basic labs including a CBC, CMP are unremarkable. Chest x-ray showed possible right midlung lung base pneumonia so a CT of the chest abdomen pelvis without contrast was obtained. No acute findings noted on CT scans. There are some chronic findings noted. On reassessment patient states he continues to feel well and at his baseline and desires discharge back to the rehab facility. Lab Data I reviewed the patient's lab results. 03/25/24 15:23 03/25/24 15:23 Radiology Impressions Chest X-Ray 03/25/24 14:48 IMPRESSION: 1. No definite acute cardiopulmonary disease. Probable chronic scarring or atelectasis in the right mid lung laterally and left lung base although infiltrate cannot be excluded. 2. Chronic findings as above. Chest/Abdomen/Pelvis CT 03/25/24 16:33 IMPRESSION: 1. No evidence of acute cardiopulmonary disease. Chronic emphysema with scattered scarring pleural thickening in chronic granulomatous disease. 2. Aneurysmal dilation of the atherosclerotic thoracic aorta measuring up to 3.5 cm in diameter at the level of the left subclavian artery origin. 3. Other chronic findings as above. IMPRESSION: 1. No evidence of a bowel obstruction. 2. Percutaneous right nephrostomy with layering fluid and air within the right renal collecting system and visualized proximal ureter. No evidence of a stone. Percutaneous left ureteral stent in place with a few punctate nonobstructing stones in the left renal collecting system. 3. Multiple other chronic findings as above. Laboratory Results WBC 8.70 10^3/uL (3.29-11.43) 03/25/24 15:23 RBC 4.29 10^6/uL (3.85-5.65) 03/25/24 15:23 Hgb 13.10 g/dL (11.27-16.99) 03/25/24 15:23 Hct 40.9 % (37-53) 03/25/24 15:23 MCV 95.3 fl (82-101) 03/25/24 15:23 MCH 30.5 pg (27-33) 03/25/24 15:23 MCHC 32.0 g/dL (30-55) 03/25/24 15:23 RDW 15.9 % (12.1-15.1) H 03/25/24 15:23 Plt Count 314 10^3/cmm (157-399) 03/25/24 15:23 MPV 9.7 fL (7.4-10.4) 03/25/24 15:23 Neut % (Auto) 63.9 % 03/25/24 15:23 Lymph % (Auto) 21.6 % 03/25/24 15:23 Roosevelt % (Auto) 9.2 % 03/25/24 15:23 Eos % (Auto) 4.1 % 03/25/24 15:23 Baso % (Auto) 0.3 % 03/25/24 15:23 Neut # (Auto) 5.55 10^3/uL (1.8-7.7) 03/25/24 15:23 Lymph # (Auto) 1.9 10^3/uL (0.8-4.8) 03/25/24 15:23 Roosevelt # (Auto) 0.8 10^3/uL (0.2-0.9) 03/25/24 15:23 Eos # (Auto) 0.4 10^3/uL (0.0-0.8) 03/25/24 15:23 Baso # (Auto) 0.0 10^3/uL (0.0-0.1) 03/25/24 15:23 Nucleated RBC % (auto) 0 % 03/25/24 15:23 Nucleated RBCs # 0.0 /100WBC 03/25/24 15:23 Sodium 141 mmol/L (136-145) 03/25/24 15:23 Potassium 3.4 mmol/L (3.5-5.1) L 03/25/24 15:23 Chloride 98 mmol/L (98-107) 03/25/24 15:23 Carbon Dioxide 31 mmol/L (22-29) H 03/25/24 15:23 Anion Gap 15.4 (5-19) 03/25/24 15:23 BUN 12 mg/dL (8-23) 03/25/24 15:23 Creatinine 1.1 mg/dL (0.7-1.2) 03/25/24 15:23 GFR Calculation Not Reportable 03/25/24 15:23 Glucose 96 mg/dL (65-115) 03/25/24 15:23 Calculated Osmolality 292 mOsm/kg (285-295) 03/25/24 15:23 Lactic Acid 0.9 mmol/L (0.5-2.2) 03/25/24 15:23 Calcium 8.6 mg/dL (8.5-10.5) 03/25/24 15:23 Total Bilirubin 0.3 mg/dL (0.15-1.2) 03/25/24 15:23 AST 19 U/L (0-40) 03/25/24 15:23 ALT 19 U/L (0-41) 03/25/24 15:23 Alkaline Phosphatase 90 U/L (40-130) 03/25/24 15:23 Total Protein 6.8 g/dL (6.6-8.7) 03/25/24 15:23 Albumin 3.2 g/dL (3.5-5.2) L 03/25/24 15:23 Globulin 3.6 g/dL (1.3-4.6) 03/25/24 15:23 All radiology interpretation(s) finalized by discharge Discharge Plan Discharge Patient Disposition: Rehab Fac w Plan Readm Clinical Impression: Generalized weakness Altered mental status Qualifiers: Altered mental status type: unspecified Qualified Code(s): R41.82 - Altered mental status, unspecified Condition: Stable Prescriptions: No Action clopidogrel 75 mg tablet 75 mg PO DAILY fluoxetine 40 mg capsule 40 mg PO DAILY pramipexole 0.125 mg tablet See Rx Instructions .ROUTE .COMPLEX Qty: 90 0RF Dose Instruction: TAKE 1 TABLET BY MOUTH IN THE MORNING, AND 2 TABLETS AT NIGHT Rx Instructions: TAKE 1 TABLET BY MOUTH IN THE MORNING, AND 2 TABLETS AT NIGHT gabapentin 600 mg tablet 600 mg PO TID PRN (Reason: nerve pain) propranolol 10 mg tablet 10 mg PO BID trazodone 100 mg tablet 100 mg PO QPM ondansetron 4 mg tablet,disintegrating 4 mg PO QID PRN (Reason: Nausea) roflumilast 500 mcg tablet 250 mcg PO DAILY metoclopramide HCl 5 mg tablet 5 mg PO TID PRN (Reason: Nausea) Referrals: Yosvany Estrella [Primary Care Provider] - Discharge Diet: Advance as tolerated Discharge Activity: Increase activity as tolerated Patient Instructions: Altered Mental Status (ED), Pain Management Activity Restrictions/Additional Instructions: Continue home medications as directed. Follow-up with your primary care provider as needed. Return to the ER for any new or worsening symptoms or any other concerns. Coding Level of Care Code ED Appeals Reviewer Veteran for Brandan Greenwood
--- NOTE | 2024-03-25 15:10 | PC.PHAR ---
Pt is in rehab at [facility]. Spouse has verified his home meds.
[2024-03-25 15:47] LABS: Basophils % 0.3 %; Eosinophils # 0.4 10^3/uL (0.0-0.8); Eosinophils % 4.1 %; Hematocrit 40.9 % (37-53); Lymphocytes # 1.9 10^3/uL (0.8-4.8); Lymphocytes % 21.6 %; Mean Corpuscular Hemoglobin 30.5 pg (27-33); Mean Corpuscular Volume 95.3 fl (82-101); Mean Platelet Volume 9.7 fL (7.4-10.4); Monocytes # 0.8 10^3/uL (0.2-0.9); Monocytes % 9.2 %; Neutrophils # 5.55 10^3/uL (1.8-7.7); Neutrophils % 63.9 %; Nucleated Red Blood Cells % 0 %; Platelet Count 314 10^3/cmm (157-399); Red Blood Count 4.29 10^6/uL (3.85-5.65); Red Cell Distribution Width 15.9 % (12.1-15.1)
[2024-03-25 16:05] LABS: Alanine Aminotransferase 19 U/L (0-41); Albumin Level 3.2 g/dL (3.5-5.2); Alkaline Phosphatase 90 U/L (40-130); Anion Gap 15.4 (5-19); Aspartate Amino Transferase 19 U/L (0-40); Blood Urea Nitrogen 12 mg/dL (8-23); Calcium 8.6 mg/dL (8.5-10.5); Carbon Dioxide 31 mmol/L (22-29); Chloride 98 mmol/L (98-107); Creatinine Clr Calc Pharmacy 53.4345; Globulin 3.6 g/dL (1.3-4.6); Glucose 96 mg/dL (65-115); Osmolality Calculated 292 mOsm/kg (285-295); Potassium 3.4 mmol/L (3.5-5.1); Sodium 141 mmol/L (136-145); Total Bilirubin 0.3 mg/dL (0.15-1.2); Total Protein 6.8 g/dL (6.6-8.7)
[2024-03-25 16:06] LABS: Lactic Sepsis W/Reflex 0.9 mmol/L (0.5-2.2)
--- NOTE | 2024-03-25 16:33 | CTR_ITS ---
PROCEDURE INFORMATION: Exam: CT Chest Without Contrast; Diagnostic Exam date and time: 03/25/2024 5:10 PM Age: 78 years old Clinical indication: Abdominal tenderness and bloating; Shortness of breath; Additional info: SOB, weakness, HX of recent sbo, TECHNIQUE: Imaging protocol: Diagnostic computed tomography of the chest without contrast. Radiation optimization: All CT scans at this facility use at least one of these dose optimization techniques: automated exposure control; mA and/or kV adjustment per patient size (includes targeted exams where dose is matched to clinical indication); or iterative reconstruction. COMPARISON: CR (CHEST, ) 03/25/2024 3:04 PM RADIATION DOSE METRICS: Total DLP (mGy-cm): 986.41 FINDINGS: Tubes, catheters and devices: Chest wall implanted medication port with tip in the superior portion of the right atrium. Lungs: Scattered granulomatous calcifications in the mediastinal and right hilum. Granulomatous calcifications within the right upper lobe. Emphysematous changes throughout the lungs. No consolidation suggested. There is scattered scarring and pleural thickening on the right and minimal atelectasis or scarring in the left lung base. Pleural spaces: No pneumothorax or pleural effusion. Heart: Normal size of the heart. No pericardial effusion.Coronary artery calcification is present. Lymph nodes: No enlarged mediastinal lymphadenopathy. Vasculature: Moderate atherosclerosis in the thoracic aorta with aneurysmal dilation in the arch at the level of the left subclavian artery origin. This measures approximately 3.5 cm in diameter, not including the subclavian artery. Bones/joints: Moderate degenerative changes of the visualized spine. No fracture or aggressive osseous lesion is seen. Soft tissues: The visualized superficial soft tissues have a normal appearance. PROCEDURE INFORMATION: Exam: CT Abdomen And Pelvis Without Contrast Exam date and time: 03/25/2024 5:10 PM Age: 78 years old Clinical indication: Abdominal tenderness and bloating; Shortness of breath; Additional info: SOB, weakness, HX of recent sbo, TECHNIQUE: Imaging protocol: Computed tomography of the abdomen and pelvis without contrast. Radiation optimization: All CT scans at this facility use at least one of these dose optimization techniques: automated exposure control; mA and/or kV adjustment per patient size (includes targeted exams where dose is matched to clinical indication); or iterative reconstruction. COMPARISON: CT abdomen pelvis wo con [id number] 03/18/2024 10:12 AM RADIATION DOSE METRICS: Total DLP (mGy-cm): 986.41 FINDINGS: Liver: Normal appearance of the liver. Gallbladder and biliary ducts: Cholelithiasis is present in the gallbladder. No evidence of cholecystitis. Pancreas: Normal appearance of the pancreas. No ductal dilation. Spleen: Normal appearance of the spleen. Adrenal glands: Normal appearance of both adrenal glands. Kidneys and ureters: There is a percutaneous right nephrostomy tube with pigtail in the right collecting system. There is scattered air within the right renal collecting system and ureter with layering fluid. No evidence of a stone. There is right renal cortical thinning and scarring. Left renal cortical scarring with punctate nonobstructing nephroliths in the collecting system. Left ureteral stent which extends outward through the right abdominal wall. Stomach and bowel: Normal appearance of the stomach. Normal caliber small and large bowel without evidence of obstruction. There is enteric contrast in the distal large bowel. Appendix: The patient is status post appendectomy. Intraperitoneal space: Unremarkable. No free air. No significant fluid collection. 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 Multiple surgical clips along the course of the external iliac arteries. Lymph nodes: Unremarkable. No enlarged lymph nodes. Urinary bladder: Urinary bladder is not seen suggesting prior cystectomy. Reproductive: The prostate is not seen suggesting prior prostatectomy. Bones/joints: Moderate diffuse degenerative changes throughout the lumbar spine with loss of disc space and vertebral body fusion at L2 through L4. No fracture or aggressive osseous lesion. Soft tissues: There is an anterior right abdominal wall hernia containing a percutaneous left ureteral stent. Hernia also contains prominent fatty tissue and partial loop of traversing large bowel. CT/[place] [id number] IMPRESSION: 1. No evidence of acute cardiopulmonary disease. Chronic emphysema with scattered scarring pleural thickening in chronic granulomatous disease. 2. Aneurysmal dilation of the atherosclerotic thoracic aorta measuring up to 3.5 cm in diameter at the level of the left subclavian artery origin. 3. Other chronic findings as above. IMPRESSION: 1. No evidence of a bowel obstruction. 2. Percutaneous right nephrostomy with layering fluid and air within the right renal collecting system and visualized proximal ureter. No evidence of a stone. Percutaneous left ureteral stent in place with a few punctate nonobstructing stones in the left renal collecting system. 3. Multiple other chronic findings as above.
[2024-03-25] MEDS: ondansetron 4 MG Tablet PO (20:28)
== END 2024-03-25 21:34 | disposition home or self-care (01) ==
PROVIDERS: Emergency Provider Student in an Organized Health Care Education/Training Program; PCP Family Medicine
DX: R53.1 Weakness (principal); R41.82 Altered mental status, unspecified; Z79.02 Long term (current) use of antithrombotics/antiplatelets; Z87.891 Personal history of nicotine dependence
CPT/HCPCS: 36415; 71045; 71250; 74176; 80053; 83605; 85025; 93005; 99285; Q0162

== ENCOUNTER 2024-06-01 17:37 | Inpatient (IN) | payer MEDICARE, OTHER, SELFPAY ==
[2024-06-01] VITALS (19 sets, daily range): BP systolic 121–168; BP diastolic 90–130; PULSE 97–116; RESP 8–32; TEMP 36.6; O2SAT 95–99; BMI 28.3; BMI 27.1
--- NOTE | 2024-06-01 17:47 | W.ED.ABDPA2 ---
Documented by User: Brady Sullivan DO 06/02/24 05:45 HPI - Abdominal Pain General: Chief Complaint: Abdominal Pain Stated Complaint: abd pain, n/v Time Seen by Provider: 06/01/24 17:40 History of Present Illness: 78-year-old male presents emergency room from [facility] has a history of bladder cancer he is ileal conduit and nephrostomy tubes he is significantly bloated and distended at this time. He has had 2 bowel movements today that were loose he is was started on Levaquin yesterday for presumed UTI. He said increasing abdominal pain throughout the day. Has been very nauseous no vomiting he denies any medic easier melena. No fever sweats or chills. He is does have a history of bowel obstruction in the past. Associated Symptoms: Reports bloating, GI cramping and nausea; Denies chills and fever(s) Related Data Home Medications ?Medication ?Instructions ?Recorded ?Confirmed clopidogrel 75 mg tablet 75 mg PO DAILY 09/05/21 03/25/24 fluoxetine 40 mg capsule 40 mg PO DAILY 09/05/21 03/25/24 gabapentin 600 mg tablet 600 mg PO TID PRN nerve pain 03/18/24 03/25/24 ondansetron 4 mg disintegrating 4 mg PO QID PRN Nausea 03/18/24 03/25/24 tablet propranolol 10 mg tablet 10 mg PO BID 03/18/24 03/25/24 roflumilast 500 mcg tablet 250 mcg PO DAILY 03/18/24 03/25/24 trazodone 100 mg tablet 100 mg PO QPM 03/18/24 03/25/24 metoclopramide HCl 5 mg tablet 5 mg PO TID PRN Nausea 03/25/24 03/25/24 Previous Rx's ?Medication ?Instructions ?Recorded pramipexole 0.125 mg tablet See Rx Instructions .Route 08/10/23 .COMPLEX #90 tabs Allergies Allergy/AdvReac Type Severity Reaction Status Date / Time atorvastatin Allergy Unknown Unknown Verified 06/01/24 22:29 cephalexin Allergy Unknown Unknown Verified 07/18/23 03:17 nitrofurantoin Allergy Unknown Unknown Verified 07/18/23 03:17 Penicillins Allergy Unknown Unknown Verified 06/01/24 22:29 Sulfa Allergy Unknown Unknown Uncoded 07/18/23 03:17 Review of Systems Const: Denies: fever(s) or chills Card: Denies: chest pain Resp: Denies: dyspnea GI: Reports: abdominal pain, nausea, bloating and GI cramping Musc: Denies: neck pain or back pain Skin/Breast: Denies: rash PFSH ED PFSH: Medical History (Updated 06/02/24 @ 05:45 by Brady Sullivan DO) Trigeminal neuralgia of right side of face Late effects of cerebral ischemic stroke Insomnia COPD (chronic obstructive pulmonary disease) Major depressive disorder Restless leg syndrome Hemiplegia as late effect of stroke L. sided hemiplegia due to stroke in 06/2018 Surgical History (Updated 06/02/24 @ 05:45 by Brady Sullivan DO) History of total cystectomy in 2018 due to bladder cancer. History of ileal conduit History of urostomy placed ureteral stents place in the urostomy in 05/2018. Family History Father Cancer Social History Smoking and tobacco/nicotine status: former use of tobacco/nicotine Quit status (tobacco/nicotine): has quit using Year quit tobacco: 2018 Alcohol intake: never Substance/Drug Use: never Physical Exam Const: GENERAL APPEARANCE: cooperative ORIENTATION/CONSCIOUSNESS: Yes awake HENMT: COMMON NORMALS: normocephalic, atraumatic and hearing grossly normal bilaterally HEAD & SCALP: normocephalic and atraumatic Resp: COMMON NORMALS: normal respiratory effort, No retractions, No use of accessory muscles and clear to auscultation bilaterally AUSCULTATION: clear to auscultation bilaterally Cardio: COMMON NORMALS: regular rhythm and No murmurs present (Cardio) RATE: tachycardic RHYTHM: regular rhythm GI: COMMON NORMALS: No hepatosplenomegaly present INSPECTION: Yes abdominal distension AUSCULTATION: Yes Absent bowel sounds PALPATION: Yes Tenderness to palpation present (GI), No Guarding due to palpation present (GI) and Yes No hepatosplenomegaly present PERCUSSION: tympanic to percussion Extremity: COMMON NORMALS: normal to inspection, capillary refill normal, no clubbing, cyanosis or edema, no calf tenderness and no pedal edema Skin: COMMON NORMALS: no rashes or lesions noted GENERAL SKIN EXAM: no rashes or lesions noted Course Vital Signs: Vital signs: Vital Signs Temperature 98.0 F 06/02/24 05:20 Pulse Rate 106 H 06/02/24 05:20 Respiratory Rate 20 H 06/02/24 05:20 Blood Pressure 146/88 06/02/24 05:20 Pulse Oximetry 96 06/02/24 05:20 Oxygen Delivery Me thod Nasal Cannula 06/02/24 03:19 Oxygen Flow Rate 3 06/02/24 05:20 MDM - Abdominal Pain Medical Decision Making Care signed out to Dr. Moss at change of shift. See final notes for diagnosis and disposition. Lab Data 06/01/24 17:51 06/02/24 04:26 Labs/Radiology: Radiology Impressions Chest X-Ray 06/01/24 17:54 IMPRESSION: No acute findings. Abdomen/Pelvis CT 06/01/24 18:20 IMPRESSION: 1. Severe right-sided hydroureteronephrosis with the right ureter joining the distal left ureter where there is a ureteral stent into a right lower quadrant ostomy. 2. Mildly fluid distended loops of bowel which are without high-grade obstructive features. Findings may relate to ileus versus enteritis. 3. Postsurgical changes related to cystectomy. 4. Cholelithiasis with a mildly hydropic gallbladder. Consider follow up with a ultrasound examination to exclude cholecystitis. 5. Somewhat branching like heterogenous attenuation of the liver. Correlate with LFTs to exclude hepatitis. 6. Additional incidental/chronic findings as above. Laboratory Results WBC 12.62 10^3/uL (3.29-11.43) H 06/01/24 17:51 RBC 4.61 10^6/uL (3.85-5.65) 06/01/24 17:51 Hgb 13.80 g/dL (11.27-16.99) 06/01/24 17:51 Hct 43.8 % (37-53) 06/01/24 17:51 MCV 95.0 fl (82-101) 06/01/24 17:51 MCH 29.9 pg (27-33) 06/01/24 17:51 MCHC 31.5 g/dL (30-55) 06/01/24 17:51 RDW 14.6 % (12.1-15.1) 06/01/24 17:51 Plt Count 248 10^3/cmm (157-399) 06/01/24 17:51 MPV 9.9 fL (7.4-10.4) 06/01/24 17:51 Neut % (Auto) 79.6 % 06/01/24 17:51 Lymph % (Auto) 8.3 % 06/01/24 17:51 [place] % (Auto) 9.6 % 06/01/24 17:51 Eos % (Auto) 1.6 % 06/01/24 17:51 Baso % (Auto) 0.4 % 06/01/24 17:51 Neut # (Auto) 10.05 10^3/uL (1.8-7.7) H 06/01/24 17:51 Lymph # (Auto) 1.1 10^3/uL (0.8-4.8) 06/01/24 17:51 [place] # (Auto) 1.2 10^3/uL (0.2-0.9) H 06/01/24 17:51 Eos # (Auto) 0.2 10^3/uL (0.0-0.8) 06/01/24 17:51 Baso # (Auto) 0.1 10^3/uL (0.0-0.1) 06/01/24 17:51 Nucleated RBC % (auto) 0 % 06/01/24 17:51 Nucleated RBCs # 0.0 /100WBC 06/01/24 17:51 Specimen Type Arterial 06/01/24 17:51 Sample Site Radial, right 06/01/24 17:51 ABG pH 7.43 (7.35-7.45) 06/01/24 17:51 ABG pCO2 36.2 mmHg (35-45) 06/01/24 17:51 ABG pO2 85.4 mmHg (80.0-100.0) 06/01/24 17:51 ABG HCO3 24.1 mmol/L (22-26) 06/01/24 17:51 ABG O2 Saturation 96.8 06/01/24 17:51 ABG Base Excess 0.1 mmol/L (-2.0-2.0) 06/01/24 17:51 Freddy Test Pos 06/01/24 17:51 A-a O2 Gradient 2.4 mmHg (5-10) L 06/01/24 17:51 Hematocrit 43.6 % (42-52) 06/01/24 17:51 Hgb O2 Saturation 94.9 % (95-100) L 06/01/24 17:51 Carboxyhemoglobin 1.0 %THgb (0.4-20.1) 06/01/24 17:51 Methemoglobin 1.0 % (0.4-1.5) 06/01/24 17:51 Total Hemoglobin 14.2 g/dL (14-18) 06/01/24 17:51 Sodium 140.0 mmol/L (131-143) 06/01/24 17:51 Potassium 3.4 mmol/L (3.5-5.0) L 06/01/24 17:51 Glucose 101.0 mg/dL (70-115) 06/01/24 17:51 Ionized Calcium 1.2 mmol/L (1.1-1.4) 06/01/24 17:51 O2 Delivery Device Nc 06/01/24 17:51 O2 Liters/Min 2.0 % 06/01/24 17:51 Supervisor [employer] [place] 06/01/24 17:51 Sodium 141 mmol/L (136-145) 06/01/24 17:51 Potassium 3.8 mmol/L (3.5-5.1) 06/01/24 17:51 Chloride 101 mmol/L (98-107) 06/01/24 17:51 Carbon Dioxide 24 mmol/L (22-29) 06/01/24 17:51 Anion Gap 19.8 (5-19) H 06/01/24 17:51 BUN 15 mg/dL (8-23) 06/01/24 17:51 Creatinine 1.2 mg/dL (0.7-1.2) 06/01/24 17:51 GFR Calculation Not Reportable 06/01/24 17:51 Glucose 94 mg/dL (65-115) 06/01/24 17:51 Calculated Osmolality 293 mOsm/kg (285-295) 06/01/24 17:51 Lactic Acid 1.9 mmol/L (0.5-2.2) 06/01/24 17:51 Calcium 9.4 mg/dL (8.5-10.5) 06/01/24 17:51 Magnesium 1.9 mg/dL (1.7-2.3) 06/01/24 17:51 Total Bilirubin 0.4 mg/dL (0.15-1.2) 06/01/24 17:51 AST 22 U/L (0-40) 06/01/24 17:51 ALT 23 U/L (0-41) 06/01/24 17:51 Alkaline Phosphatase 127 U/L (40-130) 06/01/24 17:51 Total Protein 7.2 g/dL (6.6-8.7) 06/01/24 17:51 Albumin 3.6 g/dL (3.5-5.2) 06/01/24 17:51 Globulin 3.6 g/dL (1.3-4.6) 06/01/24 17:51 Lipase 22 U/L (13-60) 06/01/24 17:51 Urine Color Yellow (Yellow) 06/01/24 18:23 Urine Appearance Slightly cloudy (CLEAR) 06/01/24 18:23 Urine pH 6 (5-7) 06/01/24 18:23 Ur Specific [place] 1.015 (1.005-1.030) 06/01/24 18:23 Urine Protein 2+ (Negative) A 06/01/24 18:23 Urine Glucose (UA) Norm (Normal) 06/01/24 18:23 Urine Ketones 1+ (Negative) H 06/01/24 18:23 Urine Blood 2+ (Negative) A 06/01/24 18:23 Urine Nitrate Positive (Negative) A 06/01/24 18:23 Urine Bilirubin Neg (Negative) 06/01/24 18:23 Urine Urobilinogen Norm mg/dL (Negative) 06/01/24 18:23 Ur Leukocyte Esterase 2+ (Negative) A 06/01/24 18:23 Urine RBC 3-5 /hpf (0-2) 06/01/24 18:23 Urine WBC 55-80 /hpf (0-5) H 06/01/24 18:23 Ur Squamous Epith Cells 6-10 /hpf (0-5) 06/01/24 18:23 Calcium Oxalate Crystal 0-4 /hpf H 06/01/24 18:23 Amorphous Sediment Not Reportable 06/01/24 18:23 Urine Bacteria 2+ /hpf (NONE) H 06/01/24 18:23 Hyaline Casts 9.91 /lpf 06/01/24 18:23 Urine Mucus Trace /hpf 06/01/24 18:23 Discharge Plan Discharge Patient Disposition: Admitted As Inpatient Admit Provider: Sherrie Vincent Clinical Impression: Urinary tract infection, Intractable nausea and vomiting, Ileus, Dehydration Condition: Stable Coding Level of Care Code ED Ecological Risk Assessor for Chg Fwd Documented by User: Ann Moss MD 06/01/24 20:39 HPI - Abdominal Pain General: Chief Complaint: Abdominal Pain Stated Complaint: abd pain, n/v Time Seen by Provider: 06/01/24 17:40 Related Data Home Medications ?Medication ?Instructions ?Recorded ?Confirmed clopidogrel 75 mg tablet 75 mg PO DAILY 09/05/21 03/25/24 fluoxetine 40 mg capsule 40 mg PO DAILY 09/05/21 03/25/24 gabapentin 600 mg tablet 600 mg PO TID PRN nerve pain 03/18/24 03/25/24 ondansetron 4 mg disintegrating 4 mg PO QID PRN Nausea 03/18/24 03/25/24 tablet propranolol 10 mg tablet 10 mg PO BID 03/18/24 03/25/24 roflumilast 500 mcg tablet 250 mcg PO DAILY 03/18/24 03/25/24 trazodone 100 mg tablet 100 mg PO QPM 03/18/24 03/25/24 metoclopramide HCl 5 mg tablet 5 mg PO TID PRN Nausea 03/25/24 03/25/24 Previous Rx's ?Medication ?Instructions ?Recorded pramipexole 0.125 mg tablet See Rx Instructions .Route 08/10/23 .COMPLEX #90 tabs Allergies Allergy/AdvReac Type Severity Reaction Status Date / Time atorvastatin Allergy Unknown Unknown Verified 06/01/24 22:29 cephalexin Allergy Unknown Unknown Verified 07/18/23 03:17 nitrofurantoin Allergy Unknown Unknown Verified 07/18/23 03:17 Penicillins Allergy Unknown Unknown Verified 06/01/24 22:29 Sulfa Allergy Unknown Unknown Uncoded 07/18/23 03:17 [facility] ED [facility]: Medical History (Updated 06/02/24 @ 05:45 by Brady Sullivan DO) Trigeminal neuralgia of right side of face Late effects of cerebral ischemic stroke Insomnia COPD (chronic obstructive pulmonary disease) Major depressive disorder Restless leg syndrome Hemiplegia as late effect of stroke L. sided hemiplegia due to stroke in 06/2018 Surgical History (Updated 06/02/24 @ 05:45 by Brady Sullivan DO) History of total cystectomy in 2018 due to bladder cancer. History of ileal conduit History of urostomy placed ureteral stents place in the urostomy in 05/2018. Family History Father Cancer Social History Smoking and tobacco/nicotine status: former use of tobacco/nicotine Quit status (tobacco/nicotine): has quit using Year quit tobacco: 2017 Alcohol intake: never Substance/Drug Use: never Course Vital Signs: Vital signs: Vital Signs Temperature 98.0 F 06/02/24 05:20 Pulse Rate 106 H 06/02/24 05:20 Respiratory Rate 20 H 06/02/24 05:20 Blood Pressure 146/88 06/02/24 05:20 Pulse Oximetry 96 06/02/24 05:20 Oxygen Delivery Me thod Nasal Cannula 06/02/24 03:19 Oxygen Flow Rate 3 06/02/24 05:20 MDM - Abdominal Pain Medical Decision Making Care signed out to Dr. Moss at change of shift. See final notes for diagnosis and disposition. 78-year-old man with a history of bladder cancer with ureteral stents and urostomy and chronic urinary tract infection who presents emergency room with abdominal pain nausea and vomiting. He says his belly feels distended. He had a small bowel obstruction about a month ago. He also had developed a urine infection which required IV antibiotics for some time. [facility] and will be discharged on Wednesday. However today he developed nausea vomiting and abdominal pain. He was checked out to me at shift change. He has some leukocytosis. Mild renal insufficiency. Nitrate positive urinary tract infection. CT shows hydronephrosis with right ureter joining distal left ureter where there is a stent in her right lower quadrant ostomy. I discussed this with the urologist at [facility] who says this is stable. Mildly distended bowels with no high-grade obstructive features which is likely an ileus. This was reviewed and interpreted by myself the emergency room physician. I also reviewed the radiology report. Consultation: I spoke with at [facility] who recommends that we admit the patient here for IV antibiotics and fluids. He says even if we transferred there they would not change out the stent until next week after he was discharged home. Consultation: I spoke with Dr. Vincent who agrees to admission to a [facility] floor. Assessment and plan: Urinary tract infection Bladder cancer Urostomy in place Ureteral stents in place Ileus Dehydration Intractable nausea and vomiting ?IV meropenem. IV fluids. IV Zofran. IV morphine. IV Compazine and Benadryl as multiple doses of IV Zofran have not resolved his nausea. -I discussed the patient with the hospitalist on-call who is admitting the patient. - Discussed findings and plan with patient. Answered any questions. - All laboratory values were reviewed and interpreted personally by myself, the ER physician - All imaging was reviewed and interpreted personally by myself, the ER physician. - Evaluation and treatment of this problem were appropriate in the emergency setting Lab Data 06/01/24 17:51 06/02/24 04:26 Labs/Radiology: Radiology Impressions Chest X-Ray 06/01/24 17:54 IMPRESSION: No acute findings. Abdomen/Pelvis CT 06/01/24 18:20 IMPRESSION: 1. Severe right-sided hydroureteronephrosis with the right ureter joining the distal left ureter where there is a ureteral stent into a right lower quadrant ostomy. 2. Mildly fluid distended loops of bowel which are without high-grade obstructive features. Findings may relate to ileus versus enteritis. 3. Postsurgical changes related to cystectomy. 4. Cholelithiasis with a mildly hydropic gallbladder. Consider follow up with a ultrasound examination to exclude cholecystitis. 5. Somewhat branching like heterogenous attenuation of the liver. Correlate with LFTs to exclude hepatitis. 6. Additional incidental/chronic findings as above. Laboratory Results WBC 12.62 10^3/uL (3.29-11.43) H 06/01/24 17:51 RBC 4.61 10^6/uL (3.85-5.65) 06/01/24 17:51 Hgb 13.80 g/dL (11.27-16.99) 06/01/24 17:51 Hct 43.8 % (37-53) 06/01/24 17:51 MCV 95.0 fl (82-101) 06/01/24 17:51 MCH 29.9 pg (27-33) 06/01/24 17:51 MCHC 31.5 g/dL (30-55) 06/01/24 17:51 RDW 14.6 % (12.1-15.1) 06/01/24 17:51 Plt Count 248 10^3/cmm (157-399) 06/01/24 17:51 MPV 9.9 fL (7.4-10.4) 06/01/24 17:51 Neut % (Auto) 79.6 % 06/01/24 17:51 Lymph % (Auto) 8.3 % 06/01/24 17:51 [place] % (Auto) 9.6 % 06/01/24 17:51 Eos % (Auto) 1.6 % 06/01/24 17:51 Baso % (Auto) 0.4 % 06/01/24 17:51 Neut # (Auto) 10.05 10^3/uL (1.8-7.7) H 06/01/24 17:51 Lymph # (Auto) 1.1 10^3/uL (0.8-4.8) 06/01/24 17:51 [place] # (Auto) 1.2 10^3/uL (0.2-0.9) H 06/01/24 17:51 Eos # (Auto) 0.2 10^3/uL (0.0-0.8) 06/01/24 17:51 Baso # (Auto) 0.1 10^3/uL (0.0-0.1) 06/01/24 17:51 Nucleated RBC % (auto) 0 % 06/01/24 17:51 Nucleated RBCs # 0.0 /100WBC 06/01/24 17:51 Specimen Type Arterial 06/01/24 17:51 Sample Site Radial, right 06/01/24 17:51 ABG pH 7.43 (7.35-7.45) 06/01/24 17:51 ABG pCO2 36.2 mmHg (35-45) 06/01/24 17:51 ABG pO2 85.4 mmHg (80.0-100.0) 06/01/24 17:51 ABG HCO3 24.1 mmol/L (22-26) 06/01/24 17:51 ABG O2 Saturation 96.8 06/01/24 17:51 ABG Base Excess 0.1 mmol/L (-2.0-2.0) 06/01/24 17:51 Freddy Test Pos 06/01/24 17:51 A-a O2 Gradient 2.4 mmHg (5-10) L 06/01/24 17:51 Hematocrit 43.6 % (42-52) 06/01/24 17:51 Hgb O2 Saturation 94.9 % (95-100) L 06/01/24 17:51 Carboxyhemoglobin 1.0 %THgb (0.4-20.1) 06/01/24 17:51 Methemoglobin 1.0 % (0.4-1.5) 06/01/24 17:51 Total Hemoglobin 14.2 g/dL (14-18) 06/01/24 17:51 Sodium 140.0 mmol/L (131-143) 06/01/24 17:51 Potassium 3.4 mmol/L (3.5-5.0) L 06/01/24 17:51 Glucose 101.0 mg/dL (70-115) 06/01/24 17:51 Ionized Calcium 1.2 mmol/L (1.1-1.4) 06/01/24 17:51 O2 Delivery Device Nc 06/01/24 17:51 O2 Liters/Min 2.0 % 06/01/24 17:51 Supervisor [employer]printing And [employer] ID [place] 06/01/24 17:51 Sodium 141 mmol/L (136-145) 06/01/24 17:51 Potassium 3.8 mmol/L (3.5-5.1) 06/01/24 17:51 Chloride 101 mmol/L (98-107) 06/01/24 17:51 Carbon Dioxide 24 mmol/L (22-29) 06/01/24 17:51 Anion Gap 19.8 (5-19) H 06/01/24 17:51 BUN 15 mg/dL (8-23) 06/01/24 17:51 Creatinine 1.2 mg/dL (0.7-1.2) 06/01/24 17:51 GFR Calculation Not Reportable 06/01/24 17:51 Glucose 94 mg/dL (65-115) 06/01/24 17:51 Calculated Osmolality 293 mOsm/kg (285-295) 06/01/24 17:51 Lactic Acid 1.9 mmol/L (0.5-2.2) 06/01/24 17:51 Calcium 9.4 mg/dL (8.5-10.5) 06/01/24 17:51 Magnesium 1.9 mg/dL (1.7-2.3) 06/01/24 17:51 Total Bilirubin 0.4 mg/dL (0.15-1.2) 06/01/24 17:51 AST 22 U/L (0-40) 06/01/24 17:51 ALT 23 U/L (0-41) 06/01/24 17:51 Alkaline Phosphatase 127 U/L (40-130) 06/01/24 17:51 Total Protein 7.2 g/dL (6.6-8.7) 06/01/24 17:51 Albumin 3.6 g/dL (3.5-5.2) 06/01/24 17:51 Globulin 3.6 g/dL (1.3-4.6) 06/01/24 17:51 Lipase 22 U/L (13-60) 06/01/24 17:51 Urine Color Yellow (Yellow) 06/01/24 18:23 Urine Appearance Slightly cloudy (CLEAR) 06/01/24 18:23 Urine pH 6 (5-7) 06/01/24 18:23 Ur Specific [place] 1.015 (1.005-1.030) 06/01/24 18:23 Urine Protein 2+ (Negative) A 06/01/24 18:23 Urine Glucose (UA) Norm (Normal) 06/01/24 18:23 Urine Ketones 1+ (Negative) H 06/01/24 18:23 Urine Blood 2+ (Negative) A 06/01/24 18:23 Urine Nitrate Positive (Negative) A 06/01/24 18:23 Urine Bilirubin Neg (Negative) 06/01/24 18:23 Urine Urobilinogen Norm mg/dL (Negative) 06/01/24 18:23 Ur Leukocyte Esterase 2+ (Negative) A 06/01/24 18:23 Urine RBC 3-5 /hpf (0-2) 06/01/24 18:23 Urine WBC 55-80 /hpf (0-5) H 06/01/24 18:23 Ur Squamous Epith Cells 6-10 /hpf (0-5) 06/01/24 18:23 Calcium Oxalate Crystal 0-4 /hpf H 06/01/24 18:23 Amorphous Sediment Not Reportable 06/01/24 18:23 Urine Bacteria 2+ /hpf (NONE) H 06/01/24 18:23 Hyaline Casts 9.91 /lpf 06/01/24 18:23 Urine Mucus Trace /hpf 06/01/24 18:23 All radiology interpretation(s) finalized by discharge Discharge Plan Discharge Patient Disposition: Admitted As Inpatient Admit Provider: Sherrie Vincent Clinical Impression: Urinary tract infection, Intractable nausea and vomiting, Ileus, Dehydration Condition: Stable Coding Level of Care Code ED Ecological Risk Assessor for Brandan Greenwood
--- NOTE | 2024-06-01 17:54 | XRR_ITS ---
PROCEDURE INFORMATION: Exam: XR Chest Exam date and time: 06/01/2024 6:01 PM Age: 78 years old Clinical indication: Cough; Additional info: Dyspnea/cough TECHNIQUE: Imaging protocol: Radiologic exam of the chest. Views: 1 view. COMPARISON: [place] [id number] 03/25/2024 5:10 PM FINDINGS: Lungs: Unremarkable. No consolidation. Pleural spaces: Unremarkable. No pleural effusion. No pneumothorax. Heart/Mediastinum: Unremarkable. No cardiomegaly. Bones/joints: Unremarkable. XR/XR chest 1V portable [id number] IMPRESSION: No acute findings.
[2024-06-01 18:01] LABS: ABG PCO2 36.2 mmHg (35-45); ABG PH Result 7.43 (7.35-7.45); Alveolar-Arterial Oxygen Gradi 2.4 mmHg (5-10); Arterial Blood Gas Hematocrit 43.6 % (42-52); Base Excess ABG 0.1 mmol/L (-2.0-2.0); Blood Gas Allen Test Pos; Blood Gas Operator Identificat WALCI; Blood Gas Sample Site Radial, right; Blood Gas Sample Type Arterial; HCO3 ABG 24.1 mmol/L (22-26); HGB O2 Sat 94.9 % (95-100); Ionized Calcium Level - ABG 1.2 mmol/L (1.1-1.4); Oxygen Device NC; Oxygen Saturation ABG 96.8; PO2 ABG 85.4 mmHg (80.0-100.0); Potassium Level - ABG 3.4 mmol/L (3.5-5.0); Total Hemoglobin 14.2 g/dL (14-18)
[2024-06-01 18:06] LABS: Basophils # 0.1 10^3/uL (0.0-0.1); Basophils % 0.4 %; Eosinophils # 0.2 10^3/uL (0.0-0.8); Eosinophils % 1.6 %; Hematocrit 43.8 % (37-53); Lymphocytes # 1.1 10^3/uL (0.8-4.8); Lymphocytes % 8.3 %; Mean Corpuscular HGB Conc 31.5 g/dL (30-55); Mean Corpuscular Hemoglobin 29.9 pg (27-33); Mean Platelet Volume 9.9 fL (7.4-10.4); Monocytes # 1.2 10^3/uL (0.2-0.9); Monocytes % 9.6 %; Neutrophils # 10.05 10^3/uL (1.8-7.7); Neutrophils % 79.6 %; Nucleated Red Blood Cells % 0 %; Platelet Count 248 10^3/cmm (157-399); Red Blood Count 4.61 10^6/uL (3.85-5.65); Red Cell Distribution Width 14.6 % (12.1-15.1); White Blood Count 12.62 10^3/uL (3.29-11.43)
--- NOTE | 2024-06-01 18:20 | CTR_ITS ---
PROCEDURE INFORMATION: Exam: CT Abdomen And Pelvis Without Contrast Exam date and time: 06/01/2024 6:27 PM Age: 78 years old Clinical indication: Abdominal pain; Generalized; Prior surgery; Surgery date: 6+ months; Surgery type: Ostomy TECHNIQUE: Imaging protocol: Computed tomography of the abdomen and pelvis without contrast. Radiation optimization: All CT scans at this facility use at least one of these dose optimization techniques: automated exposure control; mA and/or kV adjustment per patient size (includes targeted exams where dose is matched to clinical indication); or iterative reconstruction. COMPARISON: [place] [id number] 03/25/2024 5:10 PM RADIATION DOSE METRICS: Total DLP (mGy-cm): 673.29 FINDINGS: Liver: Somewhat similar nonspecific branching like heterogenous attenuation of the liver. Gallbladder and biliary ducts: Mildly hydropic gallbladder with multiple gallstones identified. Pancreas: Normal. No ductal dilation. Spleen: Normal. No splenomegaly. Adrenal glands: Mild bilateral adrenal gland thickening without mass. Kidneys and ureters: Punctate nonobstructing left-sided nephrolithiasis. There is a left-sided ureteral stent that exits into the right lower quadrant through a urostomy. There is severe left-sided hydro uretero nephrosis which exits the left lower quadrant into a urostomy. Stomach and bowel: Scattered small bowel loops demonstrate mild fluid dilatation without evidence of high-grade mechanical bowel obstruction; this may represent some ileus or enteritis. Appendix: No definite secondary signs of acute appendicitis. Intraperitoneal space: Unremarkable. No free air. No significant fluid collection. Vasculature: Atherosclerosis of the abdominal aorta with calcifications or stenting of the bilateral iliac arteries. Lymph nodes: Unremarkable. No enlarged lymph nodes. Urinary bladder: Postsurgical changes related to cystectomy. Reproductive: Unremarkable as visualized. Bones/joints: Diffusely decreased bone mineralization. Multilevel degenerative changes and osseous fusion of the vertebral bodies of the visualized lumbar spine. Soft tissues: Unremarkable. CT/CT abdomen pelvis wo con [id number] IMPRESSION: 1. Severe right-sided hydroureteronephrosis with the right ureter joining the distal left ureter where there is a ureteral stent into a right lower quadrant ostomy. 2. Mildly fluid distended loops of bowel which are without high-grade obstructive features. Findings may relate to ileus versus enteritis. 3. Postsurgical changes related to cystectomy. 4. Cholelithiasis with a mildly hydropic gallbladder. Consider follow up with a ultrasound examination to exclude cholecystitis. 5. Somewhat branching like heterogenous attenuation of the liver. Correlate with LFTs to exclude hepatitis. 6. Additional incidental/chronic findings as above.
[2024-06-01 18:26] LABS: Alanine Aminotransferase 23 U/L (0-41); Albumin Level 3.6 g/dL (3.5-5.2); Alkaline Phosphatase 127 U/L (40-130); Anion Gap 19.8 (5-19); Aspartate Amino Transferase 22 U/L (0-40); Blood Urea Nitrogen 15 mg/dL (8-23); Calcium 9.4 mg/dL (8.5-10.5); Carbon Dioxide 24 mmol/L (22-29); Chloride 101 mmol/L (98-107); Creatinine Clr Calc Pharmacy 47.8288; Globulin 3.6 g/dL (1.3-4.6); Glucose 94 mg/dL (65-115); Lipase 22 U/L (13-60); Magnesium 1.9 mg/dL (1.7-2.3); Osmolality Calculated 293 mOsm/kg (285-295); Potassium 3.8 mmol/L (3.5-5.1); Sodium 141 mmol/L (136-145); Total Bilirubin 0.4 mg/dL (0.15-1.2); Total Protein 7.2 g/dL (6.6-8.7)
[2024-06-01 18:27] LABS: Lactic Sepsis W/Reflex 1.9 mmol/L (0.5-2.2)
[2024-06-01 18:38] LABS: Hyaline Casts Urine 9.91 /lpf
[2024-06-01 18:55] LABS: Add Urine Microscopic? YES; Bilirubin Urine Neg (Negative); Blood Urine 2+ (Negative); Glucose Urine UA Norm (Normal); Ketones Urine 1+ (Negative); Leukocyte Esterase Urine 2+ (Negative); Nitrate Urine Positive (Negative); Protein Urine 2+ (Negative); Specific Gravity, Urine 1.015 (1.005-1.030); UA Slide Review UA Slide Review Perf; Urine Appearance Slightly Cloudy (CLEAR); Urine Color Yellow (Yellow); Urobilinogen Urine Norm (Negative); pH Urine 6 (5-7)
[2024-06-01 18:56] LABS: Bacteria Urine 2+ /hpf; Mucus Urine TRACE /hpf; WBC Urine 55-80 /hpf (0-5)
[2024-06-01 18:57] LABS: Add Urine Culture? Yes; Calcium Oxalate Crystals Urine 0-4 /hpf
[2024-06-01] MEDS: ondansetron 2 mg/ML SDV 2 mL 8 MG IVP (19:17)
[2024-06-01] MEDS: sodium chloride 0.9% 1,000 ML 999 ML IV (19:41)
[2024-06-01] MEDS: diphenhydrAMINE 50 mg/mL SDV 1mL 25 MG IVP (20:07)
[2024-06-01] MEDS: prochlorperazine 10 mg/2 mL Inj IVP ×2 (20:09→21:49)
[2024-06-01] MEDS: meropenem 500 mg SDV IVP (20:13)
--- NOTE | 2024-06-01 20:39 | PM.HP ---
Providers/Chief Complaint Admitting Physician: Sherrie Vincent MD Primary Care Provider: Yosvany Estrella Chief Complaint: abd pain, n/v History of Present Illness Maxwell Grimes is a 78 yo man w/ R. CVA w/ L. sided hemiparesis, Bladder cancer in 2018 s/p pelvic exenteration, ileal conduit reconstruction, and in 2019, a R. Nephrostomy tube placement & a L. ureteral stent, that exits the urostomy site, placement, all in 05/2018 due to renal failure, who presents to the ED on 06/01/2024 from [facility] with stomach pain. The patient's surgeries were all done at [facility] in [place], [place]. The Nephrostomy tube and the L. ureteral stent are exchanged every 3 months. The patient's states that he has had recurrent UTIs, which she has been told is due to the foreign bodies (stents) placed. The patient's states that he was hospitalized last 04/2024 at [facility] for recurrent UTI requiring and discharged to [facility] w/ IV antibiotics and then transitioned him to oral abx. Per , the patient had been saying that he was sick, for several days and complaining of abdominal pain. He had poor appetite and poor po intake. Per , the patient would complain of being hot and cold, but when his temp would be taken, it would be deemed within normal limits (wnl). The stated that the patient's skin was also clammy. A urine sample was taken yesterday, and he was started oral Levofloxacin today. He vomitted the medication, and his abdominal pain was a lot worse, so the [facility] Physician had him sent here. Per , the patient had blood in his R. Nephrostomy for 2 days last week before it resolved. The states that the [facility] staff thought that his Nephrostomy tube was kinked; hence, the blood. She states that there has been no blood in the Urostomy. In the ED, his vital signs were significant for tachycardia and tachypnea to the mid 20s. His labs showed a predominant neutrophilic leukocytosis, and his UA was concerning for UTI. An ABG was obtained that showed 7.4 336/85 on 2L NC. His CXR showed no acute findings. His CT abdomen/pelvis showed severe R. sided hydroureteronephrosis. Per ED physician signout, review of the CT was more concerning for an ileus, and a UTI. The ED physician spoke with the Urologist, Dr. Strange, at [facility] and the decision was made to admit the patient for management of his UTI. Review of Systems General: Reports: ROS unobtainable due to medical condition and ROS unobtainable due to mental status Medications/Allergies Home Medications ?Medication ?Instructions ?Recorded ?Confirmed ?Last Taken ?Type clopidogrel 75 mg tablet 75 mg PO DAILY 09/05/21 03/25/24 03/25/24 History fluoxetine 40 mg capsule 40 mg PO DAILY 09/05/21 03/25/24 03/25/24 History pramipexole 0.125 mg tablet See Rx Instructions .Route 08/10/23 03/25/24 03/25/24 Rx .COMPLEX #90 tabs gabapentin 600 mg tablet 600 mg PO TID PRN nerve pain 03/18/24 03/25/24 03/18/24 History ondansetron 4 mg disintegrating 4 mg PO QID PRN Nausea 03/18/24 03/25/24 Unknown History tablet propranolol 10 mg tablet 10 mg PO BID 03/18/24 03/25/24 03/25/24 History roflumilast 500 mcg tablet 250 mcg PO DAILY 03/18/24 03/25/24 03/25/24 History trazodone 100 mg tablet 100 mg PO QPM 03/18/24 03/25/24 03/24/24 History metoclopramide HCl 5 mg tablet 5 mg PO TID PRN Nausea 03/25/24 03/25/24 Unknown History Allergies Allergy/AdvReac Type Severity Reaction Status Date / Time atorvastatin Allergy Unknown Unknown Verified 06/01/24 22:29 cephalexin Allergy Unknown Unknown Verified 07/18/23 03:17 nitrofurantoin Allergy Unknown Unknown Verified 07/18/23 03:17 Penicillins Allergy Unknown Unknown Verified 06/01/24 22:29 Sulfa Allergy Unknown Unknown Uncoded 07/18/23 03:17 PFSH Acute PFSH: Medical History (Updated 06/02/24 @ 04:14 by Sherrie Vincent MD) Insomnia COPD (chronic obstructive pulmonary disease) Major depressive disorder Restless leg syndrome Hemiplegia as late effect of stroke L. sided hemiplegia due to stroke in 06/2018 Surgical History (Updated 06/01/24 @ 22:21 by Sherrie Vincent MD) History of total cystectomy in 2018 due to bladder cancer. History of urostomy placed ureteral stents place in the urostomy in 05/2018. Family History (Updated 06/01/24 @ 22:24 by Sherrie Vincent MD) Father Cancer Social History (Updated 06/01/24 @ 22:24 by Sherrie iVncent MD) Smoking and tobacco/nicotine status: former use of tobacco/nicotine Quit status (tobacco/nicotine): has quit using Year quit tobacco: 2017 Alcohol intake: never Substance/Drug Use: never Vitals/I&O/Wt Last Vital Signs Temp 97.9 F 06/01/24 17:38 Pulse 97 06/01/24 20:00 Resp 22 H 06/01/24 20:00 BP 153/92 06/01/24 20:00 Pulse Ox 99 06/01/24 20:00 O2 Del Method Nasal Cannula 06/01/24 17:38 O2 Flow Rate 3 06/01/24 17:38 06/01/24 06/01/24 06/01/24 06:59 14:59 22:59 Intake Total 1000 / 1000 Balance 1000 / 1000 Weight last 48 hrs Weight 77.111 kg Physical Exam Narrative: Constitutional: GENERAL APPEARANCE: cooperative, visibly uncomfortable and appears older than stated age; ill appearing and frail appearing HENT: HEAD & SCALP: normocephalic and atraumatic; NOSE: external nose not normal EXTERNAL EAR: no external ears normal MOUTH: Normal oral and palatal mucosa present THROAT: posterior oropharynx normal Eye: PERRL, EOMI, normal conjunctiva b/l Neck: normal visual inspection, trachea midline, No anterior neck swelling, No tracheal deviation, no submandibular swelling, Thyroid normal, cervical ROM normal Lymph: no cervical or supraclavicular LAD Resp: no use of accessory muscles, mild crackles in the b/l lower lung periphery Cardio: tachycardia, no m/r/g, or clicks. 2+ radial and DP pulses. GI: normoactive bowel sounds, TTP about 3cm to the 8o'clock position from the urostomy, distended, no guarding, no rigidity, no rebound tenderness, no hepatosplenomegaly. : Urostomy in place draining urine, R. Nephrostomy tube in place (I did not examine this given this (-) CVA tenderness Back/Pelvis: Deferred Extremity: No clubbing, No cyanosis and No edema Neuro: AO to person, but this was not fully assessed due to his pain level. CN normal except as noted. LUE w/ increased muscle tone. Involuntary movements of the b/l LE. Psych: Unable to assess Data 06/01/24 17:51 06/01/24 17:51 Micro: Microbiology 06/01/24 17:56 Blood Culture - Preliminary Blood SPECIMEN COLLECTED 06/01/24 17:51 Blood Culture - Preliminary Blood SPECIMEN COLLECTED A&P Assessment and plan (1) Sepsis: (2) Complicated UTI (urinary tract infection): (3) Hydrourethra: (4) Acute hypoxic respiratory failure: Plan Maxwell Grimes is a 78 yo man w/ R. CVA w/ L. sided hemiparesis, Bladder cancer in 2018 s/p pelvic exenteration, ileal conduit reconstruction, and in 2019, a R. Nephrostomy tube placement & a L. ureteral stent, that exits the urostomy site, placement, all in 05/2018 due to renal failure, who presents to the ED on 06/01/2024 from [facility] with stomach pain. The patient's surgeries were all done at [facility] in [place], [place]. The Nephrostomy tube and the L. ureteral stent are exchanged every 3 months. The patient's states that he has had recurrent UTIs, which she has been told is due to the foreign bodies (stents) placed. The patient's states that he was hospitalized last 04/2024 at [facility] for recurrent UTI requiring and discharged to [facility] w/ IV antibiotics and then transitioned him to oral abx. Per , the patient had been saying that he was sick, for several days and complaining of abdominal pain. He had poor appetite and poor po intake. Per , the patient would complain of being hot and cold, but when his temp would be taken, it would be deemed within normal limits (wnl). The stated that the patient's skin was also clammy. A urine sample was taken yesterday, and he was started oral Levofloxacin today. He vomitted the medication, and his abdominal pain was a lot worse, so the [facility] Physician had him sent here. Per , the patient had blood in his R. Nephrostomy for 2 days last week before it resolved. The states that the [facility] staff thought that his Nephrostomy tube was kinked; hence, the blood. She states that there has been no blood in the Urostomy. In the ED, his vital signs were significant for tachycardia and tachypnea to the mid 20s. His labs showed a predominant neutrophilic leukocytosis, and his UA was concerning for UTI. An ABG was obtained that showed 7.4 on 2L NC. His CXR showed no acute findings. His CT abdomen/pelvis showed severe R. sided hydroureteronephrosis. Per ED physician signout, review of the CT was more concerning for an ileus, and a UTI. The ED physician spoke with the Urologist, Dr. Strange, at [facility] in [place] and the decision was made to admit the patient for management of his UTI. #Sepsis #Complicated UTI #Severe R. sided hydroureteronephrosis - I called Rishi olivo at [phone], to discuss the CT abdomen and pelvis due to the discrepancy between the findings and the impression. The radiologist with whom I spoke, confirmed that the patient did have an new severe R. sided hydroureteronephrosis, that was not there in the 03/2024 CT chest/abdomen and pelvis. According to the radiologist, the patient had a very mild hydroureter in 03/2024. I have called , and they do not have the capacity to take the patient at this time, so I will attempt to transfer this patient to any hospital that has urology capability at this time. - F/u BCx, UCx, Lactate. - Continue empiric Vancomycin/Meropenem. Continue IVF. Pain control and antiemetics. #Ileus vs Enteritis: I think that this patient's problem may be more of his severe right-sided hydroureteronephrosis and less of the ileus at this time. - Continue empiric Antibiotics. Will attempt to transfer this patient. If unsuccessful, will consult general surgery in the a.m. #Cholelithiasis vs gallbladder hydrops: Also noted on CT scan. Will order RUQ US. #Acute hypoxic respiratory failure on 2L - Wean as tolerated #COPD: Not in exacerbation. Continue duonebs #RLS: Held home meds #Hx of CVA: On Clopidogrel at home. Held at this time. #MDD: On Fluoxetine. Held at this time #Insomnia: Held at this time. DVT ppx: Lovenox PPI: Protonix IVP Diet: NPO at this time. CODE STATUS: Per his , he is full code. PDMP PDMP Reviewed: Not Reviewed Attestations Medical Necessity Statement*: The patient needs to be hospitalized for greater than 2 midnights for his sepsis, complicated UTI, severe right-sided hydroureteronephrosis, possible abdominal ileus versus enteritis, and acute hypoxic respiratory failure Coding Level of Care Code 04327 High Time for a total of 80 minutes, includes reviewing past or interval history, examining/interviewing patient, placing orders, counseling patient/family/other support, updating patient/family/other support, discussing plan of care with staff, communicating with other healthcare providers, documenting encounter and coordinating care Diagnoses Sepsis A41.9 Complicated UTI (urinary tract infection) N39.0 Hydrourethra N36.8 Acute hypoxic respiratory failure J96.01
[2024-06-01] MEDS: morphine 4 mg/mL SDV 1 mL IVP (20:59)
[2024-06-01] MEDS: HYDROmorphone 0.5 MG/0.5 ML INJ 1 MG IVP (21:49)
[2024-06-01] MEDS: vancomycin 1,250 MG/250 ML PIGGYBACK 166.67 MG IV (23:05)
[2024-06-01] MEDS: sodium chloride 0.9% 1,000 ML 200 ML IV (23:05)
[2024-06-02] VITALS (9 sets, daily range): BP systolic 133–154; BP diastolic 77–90; PULSE 70–106; RESP 16–20; TEMP 36.7–37.4; O2SAT 94–99; BMI 27.1
--- NOTE | 2024-06-02 04:06 | US_ITS ---
WS: [id number] RIGHT UPPER QUADRANT ULTRASOUND HISTORY: rule out acute cholecystitis COMPARISON: CT 06/01/2024 Liver: 15.8 cm in length. Normal size liver and echogenicity. No bile duct dilatation or mass. Portal Vein: Normal hepatopetal flow with monophasic waveform. Gallbladder: Gallbladder is slightly hydropic with numerous stones. There is a stone within the gallbladder neck measuring 2.0 cm. No pericholecystic fluid and no gallbladder wall thickening. CBD: 0.5 cm Pancreas: Normal size and echogenicity. Right kidney: 13.3 cm in length. Kidney is top normal size. Severe hydronephrosis. Patient does have a urostomy but no RIGHT renal stent. Aorta and IVC: Unremarkable abdominal aorta and IVC. No ascites. US/US abdomen limited 02647 IMPRESSION: 1. Cholelithiasis without ultrasound evidence for acute cholecystitis. Numerou s large stones within the gallbladder. One of the stones could be entrapped in the gallbladder neck. 2. Severe RIGHT hydronephrosis.
[2024-06-02] MEDS: sodium chloride 0.9% 1,000 ML 999 ML IV (04:16)
[2024-06-02] MEDS: pantoprazole 40 mg SDV IVP (04:16)
[2024-06-02] MEDS: sodium chloride 0.9% 1,000 ML 200 ML IV (04:17)
[2024-06-02 04:47] LABS: INR 1.16 (0.8-1.2)
[2024-06-02 04:48] LABS: Partial Thromboplastin Time 35.4 SECONDS (23.9-36.7)
[2024-06-02 04:52] LABS: Alanine Aminotransferase 18 U/L (0-41); Alkaline Phosphatase 111 U/L (40-130); Anion Gap 13.9 (5-19); Aspartate Amino Transferase 20 U/L (0-40); Blood Urea Nitrogen 12 mg/dL (8-23); Calcium 8.5 mg/dL (8.5-10.5); Carbon Dioxide 24 mmol/L (22-29); Chloride 110 mmol/L (98-107); Creatinine Clr Calc Pharmacy 37.5765; Globulin 3.1 g/dL (1.3-4.6); Glucose 90 mg/dL (65-115); Lactic Sepsis W/Reflex 0.7 mmol/L (0.5-2.2); Osmolality Calculated 297 mOsm/kg (285-295); Potassium 3.9 mmol/L (3.5-5.1); Sodium 144 mmol/L (136-145); Total Bilirubin 0.4 mg/dL (0.15-1.2); Total Protein 6.1 g/dL (6.6-8.7)
[2024-06-02 04:55] LABS: Magnesium 1.8 mg/dL (1.7-2.3); Phosphorus 3.2 mg/dL (2.5-4.5)
[2024-06-02] MEDS: meropenem 1,000 mg SDV 1000 MG IVP ×2 (09:51→20:39)
[2024-06-02] MEDS: sodium chloride 0.9% 1,000 ML 150 ML IV (09:52)
--- NOTE | 2024-06-02 10:28 | PHA.VACGOAL ---
Vancomycin Goal - Goal Vancomycin Goal:: 15-20 mg/L Vancomycin Indication:: Other (SEPSIS) - Therapy Current therapy:: Meropenem Day of therpy:: Day [1]of [] . Actual body weight (kg): 73.936 kg - Data Labs: WBC 12.62 10^3/uL (3.29-11.43) H 06/01/24 17:51 RBC 4.61 10^6/uL (3.85-5.65) 06/01/24 17:51 Hgb 13.80 g/dL (11.27-16.99) 06/01/24 17:51 Hct 43.8 % (37-53) 06/01/24 17:51 MCV 95.0 fl (82-101) 06/01/24 17:51 MCH 29.9 pg (27-33) 06/01/24 17:51 MCHC 31.5 g/dL (30-55) 06/01/24 17:51 RDW 14.6 % (12.1-15.1) 06/01/24 17:51 Sodium 144 mmol/L (136-145) 06/02/24 04:26 Potassium 3.9 mmol/L (3.5-5.1) 06/02/24 04:26 Chloride 110 mmol/L (98-107) H 06/02/24 04:26 Carbon Dioxide 24 mmol/L (22-29) 06/02/24 04:26 Anion Gap 13.9 (5-19) 06/02/24 04:26 BUN 12 mg/dL (8-23) 06/02/24 04:26 Creatinine 1.5 mg/dL (0.7-1.2) H 06/02/24 04:26 GFR Calculation Not Reportable 06/02/24 04:26 Treatment plan:: new consult Regimen:: New start vancomycin for Sepsis. Started on maintenance dose of 1250 mg q24h. Scr increased from 1.2 to 1.5 mg/dL. Dose lowered to 1000 mg q24h. Pharmacy will continue to monitor daily.
[2024-06-02] MEDS: ALPRAZolam 0.5 mg Tablet 0.25 MG PO (12:07)
--- NOTE | 2024-06-02 12:52 | PC.SOCIAL ---
IMM Updated Updated pt on IMM. No questions voiced. Provided pt a copy. Initialed, dated, & timed a copy & placed in chart.
--- NOTE | 2024-06-02 16:47 | PM.TDS ---
Transfer Summary Providers Date of Admission: 06/01/24 20:37 Date of Discharge/Transfer: 06/08/24 Attending Provider at Admission: Sherrie Vincent MD Attending Provider at Transfer: Carisa Becker MD Primary Care Provider: Yosvany Estrella Transfer Plans: Anticipated date of transfer: 06/08/24. Receiving Facility: [facility] . Receiving Provider: Hospitalist. 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 Nephrostomy tube placement & a L. ureteral stent, that exits the urostomy site, placement, all in 05/2018 due to renal failure, who presents to the ED on 06/01/2024 from [facility] with abdominal pain. His states that patient typically gets exchange of his nephrostomy tube and the stent with urology at in [place] every 3 months. He was due for an upcoming planned exchange next week. He had been experiencing fever chills and being overall unwell over the past week. He has had poor appetite. He started levofloxacin as outpatient at the group home however had nausea and therefore could not keep it down. Approximately one week ago his nephrostomy tube was noted to be kinked, said it appeared to be giving way at the sutures, it was readjusted. Thereafter he developed hematuria from the nephrostomy tube which resolved. Over the last 2 to 3 days has noted that it is draining much less than usual. Patient was noted to have leukocytosis, HOANG with creatinine at 1.5 Tmax of 99.3 since being here. UA showing positive nitrite, positive leukocyte esterase, 55-80 WBCs, I am uncertain if this is taken from the urostomy or the nephrostomy. Urine and blood cultures are currently pending. Previous urine cultures have shown growth of Serratia and Enterococcus faecalis. He is currently on treatment with meropenem and vancomycin. He is additionally on normal saline at 75 cc an hour. Last lactate at 0.7. He has remained hemodynamically stable thus far. CT of the abdomen and pelvis was performed overnight which showed severe right-sided hydroureteronephrosis with the right ureter joining the distal left ureter where there is a ureteral stent into the right lower quadrant ostomy. The severe right-sided hydroureteronephrosis is new compared to March 2024. Radiological findings were discussed with Dr. Redd in radiology. There is concern that the right-sided nephrostomy may be dislodged and not in the renal pelvis. Alternately there may be obstruction at the ureteral conduit junction which may need placement of a stent. We do not currently have urology services here at [facility]. An ultrasound of the abdomen was performed which showed cholelithiasis without any evidence of acute cholecystitis. There were numerous large stones within the gallbladder and one of them being in the gallbladder neck. No signs of cholecystitis were noted. Transfer was attempted to [facility] where patient follows with urology, however there are no internal medicine beds available at this facility therefore patient could not be admitted to the hospitalist service there. We therefore initiated transfer at other hospitals. Patient has been accepted for transfer at [facility]. Physical Exam Narrative: General: No acute distress, AO x3 HEENT: PERRLA, pupils bilaterally equal and reactive, pallors not present Chest: Normal vesicular breath sounds, no added sounds, equal good air entry bilaterally CVS: S1-S2 regular, no murmurs, no tachycardia, no gallops, no rubs Abdomen: Soft, nontender, no organomegaly, bowel sounds present Neuro: residual left hemiparesis , per unchanged over baseline TS Data Studies Completed and Pending Pending at discharge Category Date Time Status Basic Metabolic Panel AM LABS Lab 06/03/24 04:00 Ordered Basic Metabolic Panel AM LABS Lab 06/04/24 04:00 Ordered Basic Metabolic Panel AM LABS Lab 06/05/24 04:00 Ordered Blood Culture Stat Lab 06/01/24 17:56 Results Magnesium AM LABS Lab 06/03/24 04:00 Ordered Magnesium AM LABS Lab 06/04/24 04:00 Ordered Magnesium AM LABS Lab 06/05/24 04:00 Ordered Phosphorus AM LABS Lab 06/03/24 04:00 Ordered Phosphorus AM LABS Lab 06/04/24 04:00 Ordered Phosphorus AM LABS Lab 06/05/24 04:00 Ordered Urine Culture Stat Lab 06/01/24 18:23 Received Completed Studies During Hospitalization Category Date Time Status CT abdomen pelvis wo con [id number] Stat Cat Scan 06/01/24 18:20 Completed XR chest 1V portable [id number] Stat Exams 06/01/24 17:54 Completed US abdomen limited [id number] Routine Ultrasound 06/02/24 04:06 Completed Laboratory Last Values WBC 12.62 10^3/uL (3.29-11.43) H 06/01/24 17:51 RBC 4.61 10^6/uL (3.85-5.65) 06/01/24 17:51 Hgb 13.80 g/dL (11.27-16.99) 06/01/24 17:51 Hct 43.8 % (37-53) 06/01/24 17:51 MCV 95.0 fl (82-101) 06/01/24 17:51 MCH 29.9 pg (27-33) 06/01/24 17:51 MCHC 31.5 g/dL (30-55) 06/01/24 17:51 RDW 14.6 % (12.1-15.1) 06/01/24 17:51 Plt Count 248 10^3/cmm (157-399) 06/01/24 17:51 MPV 9.9 fL (7.4-10.4) 06/01/24 17:51 Neut % (Auto) 79.6 % 06/01/24 17:51 Lymph % (Auto) 8.3 % 06/01/24 17:51 [place] % (Auto) 9.6 % 06/01/24 17:51 Eos % (Auto) 1.6 % 06/01/24 17:51 Baso % (Auto) 0.4 % 06/01/24 17:51 Neut # (Auto) 10.05 10^3/uL (1.8-7.7) H 06/01/24 17:51 Lymph # (Auto) 1.1 10^3/uL (0.8-4.8) 06/01/24 17:51 [place] # (Auto) 1.2 10^3/uL (0.2-0.9) H 06/01/24 17:51 Eos # (Auto) 0.2 10^3/uL (0.0-0.8) 06/01/24 17:51 Baso # (Auto) 0.1 10^3/uL (0.0-0.1) 06/01/24 17:51 Nucleated RBC % (auto) 0 % 06/01/24 17:51 Nucleated RBCs # 0.0 /100WBC 06/01/24 17: PT 15.60 SECONDS (12.1-14.9) H 06/02/24 04: INR 1.16 (0.8-1.2) 06/02/24 04: APTT 35.4 SECONDS (23.9-36.7) 06/02/24 04:26 Specimen Type Arterial 06/01/24 17:51 Sample Site Radial, right 06/01/24 17:51 ABG pH 7.43 (7.35-7.45) 06/01/24 17:51 ABG pCO2 36.2 mmHg (35-45) 06/01/24 17:51 ABG pO2 85.4 mmHg (80.0-100.0) 06/01/24 17:51 ABG HCO3 24.1 mmol/L (22-26) 06/01/24 17:51 ABG O2 Saturation 96.8 06/01/24 17:51 ABG Base Excess 0.1 mmol/L (-2.0-2.0) 06/01/24 17:51 Freddy Test Pos 06/01/24 17:51 A-a O2 Gradient 2.4 mmHg (5-10) L 06/01/24 17:51 Hematocrit 43.6 % (42-52) 06/01/24 17:51 Hgb O2 Saturation 94.9 % (95-100) L 06/01/24 17:51 Carboxyhemoglobin 1.0 %THgb (0.4-20.1) 06/01/24 17:51 Methemoglobin 1.0 % (0.4-1.5) 06/01/24 17:51 Total Hemoglobin 14.2 g/dL (14-18) 06/01/24 17:51 Sodium 140.0 mmol/L (131-143) 06/01/24 17:51 Potassium 3.4 mmol/L (3.5-5.0) L 06/01/24 17:51 Glucose 101.0 mg/dL (70-115) 06/01/24 17:51 Ionized Calcium 1.2 mmol/L (1.1-1.4) 06/01/24 17:51 O2 Delivery Device Nc 06/01/24 17:51 O2 Liters/Min 2.0 % 06/01/24 17:51 Assistant Merchandiser ID [place] 06/01/24 17:51 Sodium 144 mmol/L (136-145) 06/02/24 04:26 Potassium 3.9 mmol/L (3.5-5.1) 06/02/24 04:26 Chloride 110 mmol/L (98-107) H 06/02/24 04:26 Carbon Dioxide 24 mmol/L (22-29) 06/02/24 04:26 Anion Gap 13.9 (5-19) 06/02/24 04:26 BUN 12 mg/dL (8-23) 06/02/24 04:26 Creatinine 1.5 mg/dL (0.7-1.2) H 06/02/24 04:26 GFR Calculation Not Reportable 06/02/24 04:26 Glucose 90 mg/dL (65-115) 06/02/24 04:26 Calculated Osmolality 297 mOsm/kg (285-295) H 06/02/24 04:26 Lactic Acid 0.7 mmol/L (0.5-2.2) 06/02/24 04:26 Calcium 8.5 mg/dL (8.5-10.5) 06/02/24 04:26 Phosphorus 3.2 mg/dL (2.5-4.5) 06/02/24 04:26 Magnesium 1.8 mg/dL (1.7-2.3) 06/02/24 04:26 Total Bilirubin 0.4 mg/dL (0.15-1.2) 06/02/24 04:26 AST 20 U/L (0-40) 06/02/24 04:26 ALT 18 U/L (0-41) 06/02/24 04:26 Alkaline Phosphatase 111 U/L (40-130) 06/02/24 04:26 Total Protein 6.1 g/dL (6.6-8.7) L 06/02/24 04:26 Albumin 3.0 g/dL (3.5-5.2) L 06/02/24 04:26 Globulin 3.1 g/dL (1.3-4.6) 06/02/24 04:26 Lipase 22 U/L (13-60) 06/01/24 17:51 Urine Color Yellow (Yellow) 06/01/24 18:23 Urine Appearance Slightly cloudy (CLEAR) 06/01/24 18:23 Urine pH 6 (5-7) 06/01/24 18:23 Ur Specific Carter 1.015 (1.005-1.030) 06/01/24 18:23 Urine Protein 2+ (Negative) A 06/01/24 18:23 Urine Glucose (UA) Norm (Normal) 06/01/24 18:23 Urine Ketones 1+ (Negative) H 06/01/24 18: Urine Blood 2+ (Negative) A 06/01/24 18:23 Urine Nitrate Positive (Negative) A 06/01/24 18:23 Urine Bilirubin Neg (Negative) 06/01/24 18:23 Urine Urobilinogen Norm mg/dL (Negative) 06/01/24 18:23 Ur Leukocyte Esterase 2+ (Negative) A 06/01/24 18:23 Urine RBC 3-5 /hpf (0-2) 06/01/24 18:23 Urine WBC 55-80 /hpf (0-5) H 06/01/24 18:23 Ur Squamous Epith Cells 6-10 /hpf (0-5) 06/01/24 18:23 Calcium Oxalate Crystal 0-4 /hpf H 06/01/24 18:23 Amorphous Sediment Not Reportable 06/01/24 18:23 Urine Bacteria 2+ /hpf (NONE) H 06/01/24 18:23 Hyaline Casts 9.91 /lpf 06/01/24 18:23 Urine Mucus Trace /hpf 06/01/24 18:23 Radiology Impressions Chest X-Ray 06/01/24 17:54 IMPRESSION: No acute findings. Abdomen/Pelvis CT 06/01/24 18:20 IMPRESSION: 1. Severe right-sided hydroureteronephrosis with the right ureter joining the distal left ureter where there is a ureteral stent into a right lower quadrant ostomy. 2. Mildly fluid distended loops of bowel which are without high-grade obstructive features. Findings may relate to ileus versus enteritis. 3. Postsurgical changes related to cystectomy. 4. Cholelithiasis with a mildly hydropic gallbladder. Consider follow up with a ultrasound examination to exclude cholecystitis. 5. Somewhat branching like heterogenous attenuation of the liver. Correlate with LFTs to exclude hepatitis. 6. Additional incidental/chronic findings as above. Abdomen Ultrasound 06/02/24 04:06 IMPRESSION: 1. Cholelithiasis without ultrasound evidence for acute cholecystitis. Numerous large stones within the gallbladder. One of the stones could be entrapped in the gallbladder neck. 2. Severe RIGHT hydronephrosis. Recent Clincial Data Last Vital Signs Temp 98.2 F 06/02/24 15:43 Pulse 100 06/02/24 15:43 Resp 16 06/02/24 15:43 BP 135/77 06/02/24 15:43 Pulse Ox 96 06/02/24 15:43 O2 Del Method Nasal Cannula 06/02/24 15:43 O2 Flow Rate 3 06/02/24 15:43 Vital Signs Temp Pulse Resp BP Pulse Ox O2 Del Method O2 Flow Rate 06/02/24 15:43 98.2 F 100 16 135/77 96 Nasal Cannula 3 06/02/24 11:49 98.6 F 96 17 154/90 98 Nasal Cannula 3 06/02/24 10:01 99.3 F 104 H 18 152/82 96 Nasal Cannula 3 06/02/24 08:51 70 16 94 Room Air 06/02/24 07:27 98.0 F 101 H 16 147/84 99 Nasal Cannula 3 06/02/24 05:20 98.0 F 106 H 20 H 146/88 96 3 Intake & Output/Weight 05/31/24 06/01/24 06/02/24 06/03/24 06:59 06:59 06:59 06:59 Intake Total 3250 / 3250 1480 / 1480 Output Total 200 / 200 Balance 3050 / 3050 1480 / 1480 Weight 73.936 kg Vitals Last Vital Signs Temp 98.2 F 06/02/24 15:43 Pulse 100 06/02/24 15:43 Resp 16 06/02/24 15:43 BP 135/77 06/02/24 15:43 Pulse Ox 96 06/02/24 15:43 O2 Del Method Nasal Cannula 06/02/24 15:43 O2 Flow Rate 3 06/02/24 15:43 TS Medications Medications Acetaminophen (Acetaminophen 325 Mg Tablet) 650 mg PO Q6H PRN PRN Reason: Mild/Mod Pain Or Temp >/= 101 Albuterol/Ipratropium (Ipratropium-Albuterol 3 Ml Neb) 3 ml INHALATION Q6H PRN PRN Reason: SHORTNESS OF BREATH Enoxaparin Sodium (Enoxaparin 40 Mg/0.4 Ml Syringe) 40 mg SUBCUT Q24H [facility] Hydromorphone HCl (Hydromorphone 0.5 Mg/0.5 Ml Inj) 1 mg IVP Q4H PRN PRN Reason: MODERATE TO SEVERE PAIN Last Admin: 06/01/24 21:49 Dose: 1 mg Sodium Chloride (Sodium Chloride 0.9%) 1,000 mls @ 150 mls/hr IV .Q6H40M [facility] Last Admin: 06/02/24 09:52 Dose: 150 mls/hr Vancomycin HCl 1,000 mg/ (Sodium Chloride) 250 mls @ 250 mls/hr IV Q24H [facility] Meropenem (Meropenem 1,000 Mg Sdv) 1,000 mg IVP Q12H [facility] Last Admin: 06/02/24 09:51 Dose: 1,000 mg Naloxone HCl (Naloxone 0.4 Mg/Ml Sdv) 0.1 mg IVP Q2M PRN PRN Reason: OPIATERV Ondansetron HCl (Ondansetron 4 Mg Tablet) 4 mg PO Q6H PRN PRN Reason: NAUSEA Ondansetron HCl (Ondansetron 2 Mg/Ml Sdv 2 Ml) 4 mg IVP Q6H PRN PRN Reason: vomiting, or N/V if npo Pantoprazole Sodium (Pantoprazole 40 Mg Sdv) 40 mg IVP Q24H [facility] Last Admin: 06/02/24 04:16 Dose: 40 mg Senna (Sennosides 8.6 Mg Tablet) 17.2 mg PO DAILY [facility] Last Admin: 06/02/24 09:52 Dose: Not Given Discontinued Medications Alprazolam (Alprazolam 0.5 Mg Tablet) 0.25 mg PO ONCE ONE Stop: 06/02/24 11:44 Last Admin: 06/02/24 12:07 Dose: 0.25 mg Diphenhydramine HCl (Diphenhydramine 50 Mg/Ml Sdv 1ml) 25 mg IVP ONCE ONE Stop: 06/01/24 19:44 Last Admin: 06/01/24 20:07 Dose: 25 mg Ciprofloxacin/Dextrose (Cipro) 400 mg in 200 mls @ 200 mls/hr IV ONCE ONE; Protocol Stop: 06/01/24 20:16 Last Admin: 06/01/24 20:05 Dose: Not Given Sodium Chloride (Sodium Chloride 0.9%) 1,000 mls @ 999 mls/hr IV .Q1H1M ONE Stop: 06/01/24 20:17 Last Infusion: 06/01/24 20:18 Dose: Infused Sodium Chloride (Sodium Chloride 0.9%) 1,000 mls @ 200 mls/hr IV .Q5H [facility] Stop: 06/02/24 08:44 Last Infusion: 06/02/24 10:44 Dose: Infused Vancomycin HCl (Vancocin) 1,250 mg in 250 mls @ 166.667 mls/hr IV Q24H [facility] Last Infusion: 06/02/24 00:48 Dose: Infused Sodium Chloride (Sodium Chloride 0.9%) 1,000 mls @ 999 mls/hr IV .Q1H1M ONE Stop: 06/02/24 04:33 Last Infusion: 06/02/24 05:26 Dose: Infused Meropenem (Meropenem 500 Mg Sdv) 500 mg IVP ONCE ONE; Protocol Stop: 06/01/24 19:44 Last Admin: 06/01/24 20:13 Dose: 500 mg Meropenem (Meropenem 1,000 Mg Sdv) 1,000 mg IVP Q8H [facility]; Protocol Morphine Sulfate (Morphine 4 Mg/Ml Sdv 1 Ml) 4 mg IVP ONCE ONE Stop: 06/01/24 20:20 Last Admin: 06/01/24 20:59 Dose: 4 mg Ondansetron HCl (Ondansetron 2 Mg/Ml Sdv 2 Ml) 8 mg IVP ONCE ONE Stop: 06/01/24 19:08 Last Admin: 06/01/24 19:17 Dose: 8 mg Prochlorperazine Edisylate (Prochlorperazine 10 Mg/2 Ml Inj) 10 mg IVP ONCE ONE Stop: 06/01/24 19:44 Last Admin: 06/01/24 20:09 Dose: 10 mg Prochlorperazine Edisylate (Prochlorperazine 10 Mg/2 Ml Inj) 10 mg IVP ONCE ONE Stop: 06/01/24 21:44 Last Admin: 06/01/24 21:49 Dose: 10 mg Allergies atorvastatin Allergy (Unknown, Verified 06/01/24 22:29) Unknown cephalexin Allergy (Unknown, Verified 07/18/23 03:17) Unknown nitrofurantoin Allergy (Unknown, Verified 07/18/23 03:17) Unknown Penicillins Allergy (Unknown, Verified 06/01/24 22:29) Unknown Per , he had a rash as a child. Sulfa Allergy (Unknown, Uncoded 07/18/23 03:17) Unknown Home Medications clopidogrel 75 mg tablet 75 mg PO DAILY 09/05/21 [History Confirmed 06/02/24] fluoxetine 40 mg capsule 40 mg PO DAILY 09/05/21 [History Confirmed 06/02/24] pramipexole 0.125 mg tablet See Rx Instructions .Route .COMPLEX #90 tabs 08/10/23 [Rx Confirmed 06/02/24] gabapentin 600 mg tablet 600 mg PO TID PRN nerve pain 03/18/24 [History Confirmed 06/02/24] propranolol 10 mg tablet 10 mg PO BID 03/18/24 [History Confirmed 06/02/24] roflumilast 500 mcg tablet 250 mcg PO DAILY 03/18/24 [History Confirmed 06/02/24] trazodone 100 mg tablet 100 mg PO QPM 03/18/24 [History Confirmed 06/02/24] Discharge Plan Discharge Patient Disposition: Xfer Short-Term Hosp Condition: Stable Prescriptions: No Action clopidogrel 75 mg tablet 75 mg PO DAILY fluoxetine 40 mg capsule 40 mg PO DAILY pramipexole 0.125 mg tablet See Rx Instructions .ROUTE .COMPLEX Qty: 90 0RF Dose Instruction: TAKE 1 TABLET BY MOUTH IN THE MORNING, AND 2 TABLETS AT NIGHT Rx Instructions: TAKE 1 TABLET BY MOUTH IN THE MORNING, AND 2 TABLETS AT NIGHT gabapentin 600 mg tablet 600 mg PO TID PRN (Reason: nerve pain) propranolol 10 mg tablet 10 mg PO BID trazodone 100 mg tablet 100 mg PO QPM roflumilast 500 mcg tablet 250 mcg PO DAILY Referrals: Yosvany Estrella [Primary Care Provider] - Transfer Attestations Time Spent in Transfer Care: greater than 30 min Quality Metrics Clinical Quality Measures [ No reported AMI, CVA or VTE this stay] Coding Level of Care Code Acute Code for Chg Fwd Diagnoses Sepsis A41.9 Complicated UTI (urinary tract infection) N39.0 Hydrourethra N36.8 Acute hypoxic respiratory failure J96.01 Hydroureteronephrosis N13.30
[2024-06-02] MEDS: sodium chloride 0.9% 1,000 ML 75 ML IV (20:30)
[2024-06-02] MEDS: enoxaparin 40 mg/0.4 mL Syringe SUBCUT (20:39)
--- NOTE | 2024-06-02 22:32 | PC.NURSE ---
Report called to Ashly BAUER at [facility] at [phone] at 2230, all questions answered at this time
[2024-06-02] MEDS: VANCOMYCIN ADD-Vantage 1,000 MG in 0.9% NaCl ADD-Vantage 250 ML 250 MG IV (22:41)
[2024-06-03] VITALS: BP 136/72; PULSE 95; RESP 17; TEMP 36.8; O2SAT 96
[2024-06-03 04:00] VITALS: BP 131/75; PULSE 91; RESP 18; TEMP 37.1; O2SAT 97
[2024-06-03] MEDS: HYDROmorphone 0.5 MG/0.5 ML INJ 1 MG IVP (04:08)
[2024-06-03] MEDS: pantoprazole 40 mg SDV IVP (04:08)
[2024-06-03 05:35] LABS: Alanine Aminotransferase 17 U/L (0-41); Albumin Level 2.9 g/dL (3.5-5.2); Alkaline Phosphatase 103 U/L (40-130); Aspartate Amino Transferase 23 U/L (0-40); Blood Urea Nitrogen 12 mg/dL (8-23); Calcium 8.6 mg/dL (8.5-10.5); Carbon Dioxide 14 mmol/L (22-29); Chloride 110 mmol/L (98-107); Globulin 3.3 g/dL (1.3-4.6); Glucose 58 mg/dL (65-115); Magnesium 1.8 mg/dL (1.7-2.3); Osmolality Calculated 288 mOsm/kg (285-295); Phosphorus 3.5 mg/dL (2.5-4.5); Sodium 140 mmol/L (136-145); Total Bilirubin 0.3 mg/dL (0.15-1.2); Total Protein 6.2 g/dL (6.6-8.7)
[2024-06-03 05:40] LABS: Anion Gap 19.9 (5-19); Potassium 3.9 mmol/L (3.5-5.1)
[2024-06-03 07:11] VITALS: BP 128/71; PULSE 90; RESP 16; TEMP 36.8; O2SAT 95
[2024-06-03 08:34] VITALS: BP 128/71; PULSE 90; RESP 16; TEMP 36.8; O2SAT 95
== END 2024-06-03 08:36 | disposition short-term general hospital (02) | DRG 698 ==
LOC: ER 20:35 → MEDSURG 20:37
PROVIDERS: Family Medicine; Admitting Provider Internal Medicine; Emergency Provider Emergency Medicine; PCP Family Medicine; Visit Provider Student in an Organized Health Care Education/Training Program
DX: T83.022A Displacement of nephrostomy catheter, initial encounter (principal); A41.9 Sepsis, unspecified organism; J96.01 Acute respiratory failure with hypoxia; N39.0 Urinary tract infection, site not specified; N13.30 Unspecified hydronephrosis; N17.9 Acute kidney failure, unspecified; I69.954 Hemiplegia and hemiparesis following unspecified cerebrovascular disease affecting left non-dominant side; N99.522 Malfunction of incontinent external stoma of urinary tract; Y84.6 Urinary catheterization as the cause of abnormal reaction of the patient, or of later complication, without mention of misadventure at the time of the procedure; K80.20 Calculus of gallbladder without cholecystitis without obstruction; J44.9 Chronic obstructive pulmonary disease, unspecified; G25.81 Restless legs syndrome; F32.9 Major depressive disorder, single episode, unspecified; Z85.51 Personal history of malignant neoplasm of bladder
CPT/HCPCS: 36415; 36600; 71045; 74176; 76705; 80051; 80053; 81001; 82330; 82805; 83605; 83690; 83735; 84100; 85025; 85610; 85730; 87040; 87077; 87086; 87186; 94664; 96365; 96372; 96375; 96376; 99285; J0780; J1171; J1200; J1650; J2185; J2270; J2405; J2470; J3370; J7030; J7050; J9999

== ENCOUNTER 2024-06-19 18:23 | Emergency (ER) | payer MEDICARE, OTHER, SELFPAY ==
[2024-06-19 18:24] VITALS: BP 153/91; PULSE 105; RESP 18; TEMP 37.1; O2SAT 97
--- NOTE | 2024-06-19 18:39 | CTR_ITS ---
PROCEDURE INFORMATION: Exam: CT Abdomen And Pelvis Without Contrast Exam date and time: 06/19/2024 6:53 PM Age: 78 years old Clinical indication: Device placement; Non-vascular device; Other: Nephrostomy tube; Prior surgery; Surgery date: <1 month; Surgery type: Tubes placed x6 yrs, this particular tube 1.5 wk ago; Additional info: Poss dislodged neprhostomy tube TECHNIQUE: Imaging protocol: Computed tomography of the abdomen and pelvis without contrast. Radiation optimization: All CT scans at this facility use at least one of these dose optimization techniques: automated exposure control; mA and/or kV adjustment per patient size (includes targeted exams where dose is matched to clinical indication); or iterative reconstruction. COMPARISON: CT abdomen pelvis wo con [id number] 06/01/2024 6:27 PM RADIATION DOSE METRICS: Total DLP (mGy-cm): 647.53 FINDINGS: Lungs: Linear opacities at each lung base appears stable compared to recent prior. No acute airspace opacity. Pleural spaces: No pleural fluid or pneumothorax. Heart: Heart size is normal. Liver: Normal configuration. Homogeneous parenchyma. Gallbladder and biliary ducts: Postprandial gallbladder is contracted around several large stones. No gallbladder inflammatory change. No biliary tree dilation. Pancreas: Mild fatty change. No ductal dilation. Spleen: Calcified granuloma. No splenomegaly. Adrenal glands: Adrenals are thickened without discrete nodule, unchanged from prior. Kidneys and ureters: There has been interval repositioning of the right nephrostomy in satisfactory position. A moderate amount of gas is present in the right intrarenal collecting system and ureter, potentially introduced with the nephrostomy, tracking retrograde from the right lower quadrant urostomy, or caused by a gas-forming organism. A left ureteral stent is in place tracking through the urostomy. There is an intrarenal stone on the left. No appreciable stones on the right. Stomach and bowel: Postprandial stomach. Normal caliber small bowel. Patent small bowel suture lines. Diverticulosis without evidence of acute diverticulitis. Large volume fecal debris noted in the rectum. Appendix: Prior appendectomy. Intraperitoneal space: No free air. No significant fluid collection. Vasculature: Mild calcific plaque is noted in the ectatic abdominal aorta. Aorta measures to 2.4 cm in diameter. 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 Lymph nodes: No enlarged lymph nodes. Urinary bladder: Right lower quadrant urostomy. Reproductive: Prior cystprostatectomy. Extraperitoneal space: No perirectal edema. Bones/joints: Subjective bony demineralization. 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 Severe degenerative disc disease and moderate facet arthropathy is noted at L4-L5 and L5-S1. There is bilateral neural foraminal stenosis at L4-L5 and L5-S1 and equivocal spinal canal stenosis at L4-L5. Bilateral sacroiliac osteoarthritis noted with partial ankylosis on the right. Soft tissues: Unremarkable. CT/CT kidney stone [id number] IMPRESSION: 1. Right nephrostomy has been replaced in satisfactory position. Given history of tube replacement approximately 10 days ago, there is more gas than expected in the right renal collecting system and ureter. Differential diagnosis for this appearance includes retrograde tracking from urostomy, infection from gas-forming organism, or less likely residual from placement procedure. There is no evidence of perinephric fluid or gas. 2. Remainder of the exam is stable from prior. Notable chronic findings include neural foraminal stenosis at L4-L5 and L5-S1, cholelithiasis and diverticulosis.
--- NOTE | 2024-06-19 18:46 | W.ED.GENADLT ---
HPI - General Adult General: Chief complaint: General Medical Stated complaint: nephrostomy line Time Seen by Provider: 06/19/24 18:24 Source: patient and EMS Mode of arrival: EMS Limitations: no limitations History of Present Illness: 78-year-old male whose had a nephrostomy tube in his right kidney he states for 6 years he states today he believes he accidentally pulled out the prison sutures are broken a portion has been pulled out. He was in here from prison for evaluation no other complaints at this time. Associated symptoms: Deny chest pain, dyspnea, headache(s), nausea, rash or vomiting Related Data Home Medications ?Medication ?Instructions ?Recorded ?Confirmed clopidogrel 75 mg tablet 75 mg PO DAILY 09/05/21 06/02/24 fluoxetine 40 mg capsule 40 mg PO DAILY 09/05/21 06/02/24 gabapentin 600 mg tablet 600 mg PO TID PRN nerve pain 03/18/24 06/02/24 propranolol 10 mg tablet 10 mg PO BID 03/18/24 06/02/24 roflumilast 500 mcg tablet 250 mcg PO DAILY 03/18/24 06/02/24 trazodone 100 mg tablet 100 mg PO QPM 03/18/24 06/02/24 Previous Rx's ?Medication ?Instructions ?Recorded pramipexole 0.125 mg tablet See Rx Instructions .Route 08/10/23 .COMPLEX #90 tabs Allergies Allergy/AdvReac Type Severity Reaction Status Date / Time atorvastatin Allergy Unknown Unknown Verified 06/01/24 22:29 cephalexin Allergy Unknown Unknown Verified 07/18/23 03:17 nitrofurantoin Allergy Unknown Unknown Verified 07/18/23 03:17 Sulfa Allergy Unknown Unknown Uncoded 07/18/23 03:17 Review of Systems Const: Denies: fever(s), chills, body aches or change in appetite ENMT: Denies: throat pain or dental pain Card: Denies: chest pain Resp: Denies: dyspnea GI: Denies: abdominal pain, nausea, vomiting or diarrhea : Denies: dysuria Musc: Denies: neck pain or back pain Skin/Breast: Denies: rash Neuro: Denies: headache(s) PFSH ED PFSH: Medical History Trigeminal neuralgia of right side of face Late effects of cerebral ischemic stroke Insomnia COPD (chronic obstructive pulmonary disease) Major depressive disorder Restless leg syndrome Hemiplegia as late effect of stroke L. sided hemiplegia due to stroke in 06/2018 Surgical History (Updated 06/19/24 @ 20:23 by Margie Wang MD) History of total cystectomy in 2018 due to bladder cancer. History of ileal conduit History of urostomy placed ureteral stents place in the urostomy in 05/2018. Family History Father Cancer Social History Smoking and tobacco/nicotine status: former use of tobacco/nicotine Quit status (tobacco/nicotine): has quit using Year quit tobacco: 2018 Alcohol intake: never Substance/Drug Use: never Physical Exam Const: COMMON NORMALS: no acute distress, patient oriented x3 and healthy appearing HENMT: COMMON NORMALS: normocephalic HEAD & SCALP: normocephalic Eye: COMMON NORMALS: conjunctivae normal CONJUNCTIVA: Yes conjunctivae normal Neck/C-Spine: COMMON NORMALS: full ROM and supple Chest: COMMONS NORMALS: normal inspection of the chest Resp: COMMON NORMALS: normal respiratory effort Cardio: COMMON NORMALS: regular rate RATE: regular rate GI: COMMON NORMALS: Normal to inspection, nondistended, normoactive bowel sounds present, Soft to palpation, non-tender and no masses PALPATION: Yes Soft to palpation : OTHER: right nephrostomy tube suture is broken and seems to be pulled about 4 inches Extremity: COMMON NORMALS: normal to inspection and full ROM Neuro: COMMON NORMALS: patient oriented x3, moves all extremities and no focal motor deficits Psych: COMMON NORMALS: mental status grossly normal, Normal thought process present and cooperative THOUGHT PROCESS: Normal thought process present Skin: COMMON NORMALS: no rashes or lesions noted and no wounds GENERAL SKIN EXAM: no rashes or lesions noted Course Vital Signs: Vital signs: Vital Signs Temperature 98.8 F 06/19/24 18:24 Pulse Rate 101 H 06/19/24 20:27 Respiratory Rate 18 06/19/24 18:24 Blood Pressure 143/83 06/19/24 20:27 Pulse Oximetry 95 06/19/24 20:27 Oxygen Delivery Me thod Room Air 06/19/24 18:24 MDM - General Adult Medical Decision Making Patient presents here with concern of dislodged nephrostomy tube suture has broken although he still has urine output from the nephrostomy CT shows that it is in place he is afebrile here no signs of infection I did speak to his urologist they are going to follow him up at [place] I did tape the tube back in place Medical Records I reviewed the patient's medical records. Lab Data Radiology Impressions Abdomen/Pelvis CT 06/19/24 18:39 IMPRESSION: 1. Right nephrostomy has been replaced in satisfactory position. Given history of tube replacement approximately 10 days ago, there is more gas than expected in the right renal collecting system and ureter. Differential diagnosis for this appearance includes retrograde tracking from urostomy, infection from gas-forming organism, or less likely residual from placement procedure. There is no evidence of perinephric fluid or gas. 2. Remainder of the exam is stable from prior. Notable chronic findings include neural foraminal stenosis at L4-L5 and L5-S1, cholelithiasis and diverticulosis. All radiology interpretation(s) finalized by discharge Discharge Plan Discharge Patient Disposition: Home Clinical Impression: H/O insertion of nephrostomy tube Condition: Stable Prescriptions: No Action clopidogrel 75 mg tablet 75 mg PO DAILY fluoxetine 40 mg capsule 40 mg PO DAILY pramipexole 0.125 mg tablet See Rx Instructions .ROUTE .COMPLEX Qty: 90 0RF Dose Instruction: TAKE 1 TABLET BY MOUTH IN THE MORNING, AND 2 TABLETS AT NIGHT Rx Instructions: TAKE 1 TABLET BY MOUTH IN THE MORNING, AND 2 TABLETS AT NIGHT gabapentin 600 mg tablet 600 mg PO TID PRN (Reason: nerve pain) propranolol 10 mg tablet 10 mg PO BID trazodone 100 mg tablet 100 mg PO QPM roflumilast 500 mcg tablet 250 mcg PO DAILY Discharge Orders: Discharge ED (Routine); Ordered 06/19/24 Ordered By: Margie Wang Referrals: Yosvany Estrella [Primary Care Provider] - Discharge Diet: Advance as tolerated Discharge Activity: Resume usual activity Patient Instructions: Nephrostomy Tube Care (ED) Print Language: Martiniquais Coding Level of Care Code ED [employer] for Brandan Greenwood
[2024-06-19 20:27] VITALS: BP 143/83; PULSE 101; O2SAT 95
[2024-06-19 22:03] VITALS: BP 143/83; PULSE 100; O2SAT 95
== END 2024-06-19 22:06 | disposition home or self-care (01) ==
PROVIDERS: Emergency Provider Emergency Medicine; PCP Family Medicine
DX: Z93.6 Other artificial openings of urinary tract status (principal); Z87.891 Personal history of nicotine dependence; J44.9 Chronic obstructive pulmonary disease, unspecified
CPT/HCPCS: 74176; 99284